=== PATIENT | female | born 1975 | race Caucasian/White ===

== ENCOUNTER 2017-10-27 19:59 | Emergency (ER) | payer OTHER, SELFPAY ==
[2017-10-27 19:59] VITALS: BP 147/117; PULSE 104; RESP 18; TEMP 36.8; O2SAT 98; BMI 29.5
--- NOTE | 2017-10-27 20:50 | CT_ITS ---
STUDY: CT ABDOMEN AND PELVIS WITHOUT CONTRAST REASON FOR EXAM: Female, 41 years old. Kidney stones. RADIATION DOSAGE (If Supplied By Facility): CTDIvol = ( 11.89 ) mGy, DLP = ( 594.17 ) mGycm TECHNIQUE: Transaxial images were obtained from the dome of the diaphragm to the symphysis pubis without oral contrast, and without intravenous contrast. Sagittal and coronal images were reconstructed. Individualized dose optimization techniques were used for this CT. COMPARISON: 06/06/2015. FINDINGS: The visualized lung bases are unremarkable. The visualized portions of the heart are within normal limits. Normal liver. Normal gallbladder and extrahepatic biliary system. Normal spleen. Normal pancreas. Normal bilateral adrenal glands. Both kidneys have very numerous renal stones in all segments. On the right the largest is approximately 6 mm. On the left the largest is approximately 7 mm. Left kidney shows diffuse edema, perinephric stranding, and moderate hydronephrosis. There is moderate to marked left hydroureter down to a 5 mm probable distal left ureteral calculus on axial image 149. Evaluation of the GI tract is limited by absence of oral contrast. Cannot exclude stomach wall thickening. No dilated loops of bowel or evidence for obstruction. Cannot exclude segmental thickening of the padgett of the small or large bowel. Cannot exclude enteritis or colitis. Moderate diffuse fecal retention. Diverticulosis without definite diverticulitis. Appendix within normal limits. Normal abdominal aorta. Normal inferior vena cava. Normal retroperitoneum. Normal urinary bladder. Normal visualized uterus. There is a small umbilical hernia containing fat. Normal osseous structures. CT/Abdomen/Pelvis without Cont IMPRESSION: Obstruction of the left kidney, collecting system and ureter from a probable 5 mm distal left ureteral calculus. Additional very numerous bilateral renal stones in all segments. Electronically Signed: Bill Sousa MD at 22:39 EDT , Service support ,
[2017-10-27] MEDS: Ketorolac 30 MG/ML Syringe IV (21:07)
[2017-10-27] MEDS: 0.9% Normal Saline 1,000 ML 250 ML IV (21:07)
[2017-10-27] MEDS: Ondansetron 4 MG/2 ML Vial IV (21:08)
[2017-10-27] MEDS: HYDROmorphone 1 MG/ML Syringe IV (21:08)
[2017-10-27 21:16] LABS: Bacteria 0 SEEN /hpf (None Seen); Mucous, Urine 0 SEEN /hpf (<or=2+); Red Blood Cells-Urine 0 SEEN /hpf (0-5)
[2017-10-27 21:24] LABS: Color, Urine Yellow (Yellow); Glucose, Dipstick Normal (Normal); Ketone-Dipstick Negative (Negative); Leukocyte Esterase-Dipstick 25 /ul (Negative); Nitrite-Dipstick Negative (Negative); Occult Blood-Urine 10 /ul (Negative); Protein-Dipstick 15 mg/dl (Negative); Urine Bilirubin Dipstick Negative (Negative); Urine Clarity Clear (Clear); Urine Urobilinogen Normal (Normal)
[2017-10-27 21:30] LABS: Squamous Epithelial Cells - UA 0-5 SEEN /hpf (5-10); White Blood Cells 0-5 SEEN /hpf (0-5)
[2017-10-27 22:05] LABS: Internal QC Validated? YES +Cl - CLEAR BKGD; Pregnancy, Urine Negative Negative
[2017-10-27 22:36] VITALS: BP 134/82; PULSE 99; RESP 18; O2SAT 100
--- NOTE | 2017-10-27 23:00 | ED.VISSUMM ---
- ER Visit Summary Date of Service: 10/27/17 Chief Complaint: Left flank pain History of Present Illness: The patient is a [address] Renner and Dr. Abreu. She reports she has left flank pain that began October 25 and is much worse today. It is a sharp, stabbing pain is 10 out of 10 at worst 9-10 currently. Is worsened by nothing relieved by nothing. She has had nausea without vomiting. No dysuria or frequency. She reports this is similar to when she has had kidney stones in the past. Physical Examination: Vitals: Stable. Afebrile. General: Well-nourished and well-developed. Head: Normocephalic atraumatic. Neck: Supple, no lymphadenopathy. No JVD. Nontender. Cardiovascular: Regular rate and rhythm. No murmurs. Respiratory: No respiratory distress. Clear to auscultation bilaterally. Abdominal: Soft, nontender, nondistended, normal bowel sounds. No guarding, rebound, or peritoneal signs. Back: Nontender. Extremities: Nontender, no edema. Skin: Normal color, no rash. Neurologic: Alert and oriented ?3. Cranial nerves II through XII are intact. Normal strength and sensation. Psych: Normal affect. Test Results: Urinalysis shows no evidence of infection. test negative. CT flank shows a 5 mm distal left ureteral calculus with moderate hydronephrosis/hydroureter. Emergency Department Course and Treatment: Patient was treated with Dilaudid, Toradol, and Zofran IV. She is resting comfortably. Treatment Plan: Patient will be discharged with naproxen, Percocet, Flomax, and Zofran. Instructed to strain her urine and follow Dr. Abreu if she does not pass the stone within the next week. Return to the emergency department for any worsening symptoms. Disposition: To home in improved and stable condition. Impression: 1. Left ureterolithiasis. This note was generated with [employer] dictation software. It may contain incorrect words, spelling, and punctuation that were not noted in review of the chart prior to signing ED Disposition - Plan for ED Patient: Chief Complaint: Flank Pain Instructions: ED Stone Renal W Colic Prescriptions: Oxycodone HCl/Acetaminophen [Percocet 5/325] 1 tablet PO Q6H PRN PRN 5 Days #20 tablet PRN Reason: Pain Ondansetron [Zofran Odt] 4 mg PO Q8H PRN PRN #10 tablet PRN Reason: Nausea Tamsulosin HCl [Flomax] 0.4 mg PO DAILY #7 capsule Naproxen [Naprosyn] 500 mg PO BID #14 tablet Referrals: Mark Abreu MD [STAFF PHYSICIAN] - 1 Week if not improving
[2017-10-27] MEDS: Ondansetron ODT 4 MG Tablet PO (23:17)
[2017-10-27] MEDS: oxyCODONE 5 MG Tablet PO (23:18)
[2017-10-27 23:24] VITALS: BP 121/78; PULSE 84; RESP 14; O2SAT 100
--- NOTE | 2017-10-27 23:25 | ED.RN ---
THIS NURSE REVIEWED D/C INSTRUCTIONS WITH PT. PT VERBALIZED UNDERSTANDING OF INSTRUCTIONS. IV D/C. IV CATHETER INTACT. PT TOLERATED WELL. PT DENIES FURTHER NEEDS OR QUESTIONS AT THIS TIME. PT AMBULATES FROM ROOM ON OWN WITHOUT ASSISTANCE FROM STAFF
== END 2017-10-27 23:26 | disposition short-term general hospital (02) ==
LOC: ED 20:55
PROVIDERS: Emergency Provider Emergency Medicine; Family Provider Internal Medicine; PCP Internal Medicine
DX: N13.2 Hydronephrosis with renal and ureteral calculous obstruction (principal); Z87.442 Personal history of urinary calculi
CPT/HCPCS: 74176; 81001; 81025; 99283; J7030; A4216; J2405

== ENCOUNTER 2018-03-01 21:47 | Emergency (ER) | payer OTHER, SELFPAY ==
[2018-03-01 21:48] VITALS: BP 169/106; PULSE 89; RESP 16; TEMP 36.2; O2SAT 98; BMI 29.8
--- NOTE | 2018-03-01 22:33 | CT_ITS ---
STUDY: CT ABDOMEN AND PELVIS WITHOUT CONTRAST REASON FOR EXAM: Female, 42 years old. Left flank pain. History of ureteral stents in the past. RADIATION DOSAGE (If Supplied By Facility): CTDIvol = ( 11.12 ) mGy, DLP = ( 564.06 ) mGycm TECHNIQUE: Transaxial images were obtained from the dome of the diaphragm to the symphysis pubis without oral contrast, and without intravenous contrast. Sagittal and coronal images were reconstructed. Individualized dose optimization techniques were used for this CT. COMPARISON: CT of the abdomen and pelvis, October 27, 2017. FINDINGS: The visualized lung bases are unremarkable. The visualized portions of the heart are within normal limits. Normal liver. Normal gallbladder and extrahepatic biliary system. Normal spleen. Normal pancreas. Normal bilateral adrenal glands. The right kidney is of normal size and cortical thickness. There is a small cyst in the lower pole. There are multiple renal calculi. The largest measures 4 mm. There is no hydronephrosis. Normal right ureter. The left kidney is of normal size and cortical thickness. There are multiple renal calculi. The largest measures 8 mm in greatest dimension. There is hydronephrosis and ureterectasis to the pelvic sidewall where there is nonobstructing 5 mm calculus (image 154, series 2). Normal visualized stomach. Normal small intestine. Normal colon. The appendix is visualized and appears normal. Normal abdominal aorta. Normal inferior vena cava. Normal retroperitoneum. Normal urinary bladder. Uterus is anteverted and grossly unremarkable. Normal ovaries. No pelvic lymphadenopathy. No free air or free fluid is seen within the abdominal cavity. There is a small umbilical hernia of omental fat. Abdominal wall is otherwise intact. Normal osseous structures. CT/Abdomen/Pelvis without Cont IMPRESSION: 1. Distal left ureteral calculus with moderate obstructive uropathy. This appears unchanged from prior exam. 2. Multiple bilateral nonobstructing renal calculi. 3. No other major interval change. Electronically Signed: Gold Lowery DO at 23:19 EST Tel [phone], Service support ,
--- NOTE | 2018-03-01 22:33 | ED.VISSUMM ---
- ER Visit Summary Date of Service: 03/01/18 Chief Complaint: Flank pain History of Present Illness: The patient is a 42 F with a history of kidney stone presents with flank pain similar to prior kidney stones that started earlier this morning. No fever or chills she has no abdominal pain. She has slight nausea but this was after she took a Percocet. No fever or chills dysuria or hematuria. Physical Examination: Currently she appears in mild distress Moist mucous membranes, no obvious facial deformity No C-spine tenderness supple neck. Regular rate and rhythm without any obvious murmurs Clear lungs bilaterally speaking in full sentences without any obvious respiratory distress Abdomen soft and nontender no guarding or rebound. She does have left-sided CVA tenderness. Moves all extremities without any difficulty or pain. Skin does not show any obvious rashes or lesions, no trauma. Alert oriented ?3 with no gross focal deficit Emergency Department Course and Treatment: Patient received 2 doses of opiate analgesics her pain is now controlled. She also received Toradol. She has a 5 mm distal ureteral stone. I told her that there is a decent chance that she will pass it on her own I referred her back to Dr. Soto. She will be discharged in stable condition Impression: Kidney stone This note was generated with [employer] dictation software. It may contain incorrect words, spelling, and punctuation that were not noted in review of the chart prior to signing ED Disposition - Plan for ED Patient: Disposition: Home or Assisted Living Chief Complaint: Flank Pain Instructions: ED Stone Renal W Colic Prescriptions: Oxycodone HCl/Acetaminophen [Percocet 5/325] 1 tab PO Q6H PRN PRN 3 Days #12 tab PRN Reason: Pain Ondansetron [Zofran Odt] 4 mg PO Q8H PRN PRN #10 tab PRN Reason: Nausea Tamsulosin HCl [Flomax] 0.4 mg PO DAILY #5 cap Referrals: Mark Abreu MD [STAFF PHYSICIAN] - 3-5 Days
[2018-03-01 22:39] LABS: Bacteria 0 SEEN /hpf (None Seen); Mucous, Urine 0 SEEN /hpf (<or=2+); Red Blood Cells-Urine 0 SEEN /hpf (0-5)
[2018-03-01 22:40] LABS: Glucose, Dipstick Normal (Normal); Ketone-Dipstick Negative (Negative); Leukocyte Esterase-Dipstick Negative /ul (Negative); Nitrite-Dipstick Negative (Negative); Occult Blood-Urine Negative /ul (Negative); Protein-Dipstick Negative (Negative); Specific Gravity, Urine 1.015 (1.002-1.030); Urine Bilirubin Dipstick Negative (Negative); Urine Urobilinogen Normal (Normal)
[2018-03-01 22:46] LABS: Color, Urine Yellow (Yellow); Urine Clarity Clear (Clear)
[2018-03-01 22:50] LABS: Squamous Epithelial Cells - UA 0-5 SEEN /hpf (5-10); White Blood Cells 0-5 SEEN /hpf (0-5)
[2018-03-01 22:54] LABS: Absolute Lymphocyte Count 1.53 X10^3/ul (0.83-4.51); Absolute Neutrophil Count 4.8 X10^3/uL (2.0-7.7); Basophil# 0.01 X10^3/uL; Basophil% 0.1 % (0-1); Eosinophil# 0.14 X10^3/uL; Hematocrit 37.2 % (37-47); Hemoglobin 12.4 g/dl (12.0-15.0); Lymphocyte # 1.53 X10^3/ul (4.0); Lymphocyte % 21.7 % (19-41); Mean Corp Hgb Conc 33.3 g/gl (32-36); Mean Corpuscular Hgb 28.1 pg (27.0-32.0); Mean Corpuscular Volume 84.2 fL (81-99); Mean Platelet Vol. 8.7 fl (6.2-12.0); Monocyte# 0.53 X10^3/uL; Monocyte% 7.5 % (0-10); Neutrophil # 4.84 X10^3/uL (2.7-7.7); Neutrophil % 68.6 % (47-70); Platelet Count 294 K/mm3 (150-450); RBC Distribution Width SD 39.6 fl (35.1-43.9); Red Blood Count 4.42 M/mm3 (4.2-5.4); White Blood Count 7.1 K/mm3 (4.4-11.0)
[2018-03-01 23:04] LABS: POSITIVE COUNT NO; POSITIVE DIFFERENTIAL NO; POSITIVE MORPHOLOGY NO
[2018-03-01 23:15] LABS: Anion Gap 7 (5-15); BUN 17 mg/dL (7-18); BUN/Creat Ratio 17.5 RATIO (10-20); Calcium,Total 8.6 mg/dL (8.5-10.1); Chloride 106 mmol/L (98-107); Creatinine, Serum 0.97 mg/dL (0.55-1.02); EST Glomerular Filtration Rate 66 mL/min (>60); Est Glom Filt Rate - Afr Amer 80 mL/min (>60); Estimated Creatinine Clearance 69.29 ml/min; Glucose 100 mg/dL (74-106); Potassium 3.6 mmol/L (3.5-5.1); Sodium Level 138 mmol/L (136-145)
[2018-03-01] MEDS: HYDROmorphone 1 MG/ML Syringe IV (23:15)
[2018-03-01] MEDS: Ondansetron 4 MG/2 ML Vial IV (23:15)
[2018-03-01] MEDS: Ketorolac 15 MG/ML Vial IV (23:16)
[2018-03-02] MEDS: HYDROmorphone 1 MG/ML Syringe IV (00:41)
[2018-03-02] MEDS: DiphenhydrAMINE 50 MG/ML Syringe 25 MG IV (01:30)
[2018-03-02] MEDS: Metoclopramide 10 MG/2 ML Vial IV (01:30)
[2018-03-02 01:33] VITALS: BP 152/99; PULSE 91; RESP 16; O2SAT 92
[2018-03-02 01:38] VITALS: BP 152/99; PULSE 91; RESP 16; O2SAT 92
== END 2018-03-02 01:39 | disposition home or self-care (01) ==
PROVIDERS: Emergency Provider Emergency Medicine; Family Provider Internal Medicine; PCP Internal Medicine
DX: N20.0 Calculus of kidney (principal); Z87.442 Personal history of urinary calculi
CPT/HCPCS: 74176; 80048; 81001; 85025; 96374; 96375; 96376; 99282; A4216; J2405

== ENCOUNTER 2018-04-06 12:15 | Day surgery (SDC) | payer OTHER, SELFPAY ==
[2018-04-06 12:41] VITALS: BP 153/99; PULSE 101; RESP 18; TEMP 37.4; O2SAT 97; BMI 29.2
[2018-04-06 12:42] LABS: Internal QC Validated? YES +Cl - CLEAR BKGD; Pregnancy, Urine Negative Negative
[2018-04-06] MEDS: Cefazolin 2 GM in 0.9% Normal Saline 100 ML IV (13:40)
--- NOTE | 2018-04-06 14:06 | DCINST_ITS ---
Discharge Diet: Light diet - advance as tolerated Discharge Activity: Return to Normal Activity Suture Line Care: Avoid Pulling/Pushing, Avoid Pinching/Bending Allergies/Adverse Reactions: Allergies No Known Allergies Allergy (Verified 04/05/18 16:47) Medications to take at Discharge NK 04/05/18 Primary Care Physician: Rena Renner DO [Primary Care Provider] - Test Results: Test results from this visit will be discussed in further detail at your follow- up appointment, if applicable. Please Follow Up With: Mark Abreu MD When: in 4 weeks, please call to make an appointment.
--- NOTE | 2018-04-06 14:08 | PCM.OPRPT ---
Report of Operation Date of Procedure: 04/06/18 Pre-Operative Diagnosis: Left ureteral calculi Post-Operative Diagnosis: Same Surgery/Procedure Performed:: Cystoscopy, left retrograde pyelogram, left ureteroscopy, balloon dilation of left ureter. Description of Surgical Findings:: 42-year-old female presented to the office she had a CAT scan done this past summer that showed a stone in the distal left ureter she had a CAT scan done about a month ago that showed the same stone in the distal left ureter she not been able to pass the stone still having patient pain off and on. Therefore recommended we proceed with ureteroscopy and laser lithotripsy and possible stent placement. 42-year-old female taken back to the operating of the smooth induction of anesthesia she was placed supine on the table, then a dorsolithotomy position, went into the bladder with a 21 Polish rigid cystourethroscope the entire length the urethra is normal the bladder is normal, she then prepped and draped in sterile fashion for this procedure, I then cannulated the left ureteral orifice advanced a wire up into the kidney, balloon dilated the distal left ureter, performed a retrograde pyelogram, perform ureteroscopy all the way up to the kidney inspected the upper pole midpole lower pole there is no stone fragments along the course of the ureter no stone fragments up in the kidney removed the flexible ureteroscope drain the bladder the patient's anesthetic was being reversed did not place a stent. Type of Anesthesia:: General - Admit VTE Documentation VTE Present on Admission: No VTE Mechan Device Prophylaxis: SCD's
[2018-04-06 14:15] VITALS: BP 140/93; BP 153/99; PULSE 112; RESP 16; TEMP 36.8; O2SAT 94
[2018-04-06 14:30] VITALS: BP 144/96; BP 153/99; PULSE 101; RESP 16; O2SAT 98
[2018-04-06] MEDS: Ketorolac 15 MG/ML Vial IV (14:31)
[2018-04-06 14:45] VITALS: BP 139/91; BP 153/99; PULSE 102; RESP 16; TEMP 36.4; O2SAT 96
[2018-04-06 15:58] VITALS: BP 125/78; BP 153/99; PULSE 78; RESP 18; TEMP 36.8; O2SAT 99
--- OUTSIDE RECORDS SUMMARY | 2018-05-23 06:52 | XMS RPT_ITS ---
:1975 Author Organization [place] Care Team Providers Name Role Phone ANNE FONSECA Attending Unavailable KAREEN FRIAS (PT) Attending Unavailable ANNE FONSECA Referring Unavailable MJ, RENA BEE Referring Unavailable TESTANNE WOODS Attending Unavailable TESTANNE WOODS Referring Unavailable KAREEN FRIAS (PT) Attending Unavailable MJ, RENA CRISTAL Referring Unavailable [place] (GOLD MARKER) Referring Unavailable AMALFITANO, COLLIN L Attending Unavailable AMALFITANO, COLLIN L Referring Unavailable EDDIE, HUY L Attending Unavailable AMALFITANO, COLLIN L Referring Unavailable ILYA FERRERA Attending Unavailable EDDIE, HUY L Referring Unavailable EDDIE, HUY L Attending Unavailable EDDIE, HUY L Referring Unavailable ABBY PHELPS Attending Unavailable MATTIE, KARMON Referring Unavailable Mj DO, Rena Attending Unavailable Mj DO, Rena Referring Unavailable Mj DO, Rena Consulting Unavailable Brayd, Kuldeep Attending Unavailable Brady, Kuldeep Referring Unavailable Mj, Rena Primary Care Unavailable Ami, Joseph Attending Unavailable Mj, Rena Referring Unavailable Mj, Rena Primary Care Unavailable Mj, Rena Primary Care Unavailable Tiffany, Yasmany Attending Unavailable Mj, Rena Primary Care Unavailable Kartik Hays Attending Unavailable PROBLEMS PROBLEMS DATE TYPE CONDITION / CODE ATTENDING STATUS SOURCE Active Primary NA Active [place] 5 hyperparathyroidism / Clinic Main E21.0(ICD-10) [place] Repository Active Palpitations / NA Active [place] 8 R00.2(ICD-10) Clinic Main [place] Repository Active Paroxysmal atrial NA [facility] 8 fibrillation / Clinic Main I48.0(ICD-10) [place] Repository Active Other specified NA [facility] 8 postprocedural states / Clinic Main Z98.890(ICD-10) [place] Repository Active Encounter for screening NA Active [place] 8 mammogram for malignant Clinic Main neoplasm of breast / [place] Z12.31(ICD-10) Repository Unknown R10.9 - Unspecified Kartik Hays Active [place] 8 abdominal pain / Community R10.9(ICD-10) Hospital Repository Unknown N20.0 - Calculus of Tiffany, Active [place] 8 kidney / N20.0(ICD-10) [facility] Repository Unknown I48.0 - Paroxysmal Ami, [place] Active [place] 8 atrial fibrillation / Community I48.0(ICD-10) Hospital Repository Active Unknown / UNK(Unknown) NA Active [place] 8 [facility] Repository PROCEDURES PROCEDURES No Procedure Records FoundRESULTS RESULTS HPV W/GENOTYPE THINP Collected: 04/23/2018 Status: F Source: [place] 9:20 AM [facility] REPOSITORY TYPE CODE TESTS RESULT OUT OF RANGE REFERENCE UNITS LAB HPVT16 HPV HighRisk Negative for Type 16 HPV DNA high risk type 16 by PCR. LAB HPVT18 HPV HighRisk Negative for Type 18 HPV DNA high risk type 18 by PCR. LAB HPVHRO Abnormal HPV HighRisk Positive for Alert Other one or more of the following HPV DNA high risk types: 31,33,35,39,45 ,51,52,56,58,5 9,66,68 by PCR Result Comment: This test was developed and its performance characteristics determined by [facility] Pathology and Laboratory Medicine [place] ([facility] It has not been cleared or approved by the FDA. -[facility] is regulated under CLIA as qualified to perform high-complexity testing. This test is used for clinical purposes. It should not be regarded as inv estigational or for research. Performed By: #### HPVHRT #### [facility] [address] [place], [place] [address] CNOV Observed: 04/23/2018 Status: COMPLETED Source: [place] 8:50 AM [facility] REPOSITORY Office Visit (WOOB) KARMA ROJO ([id number]) 1975 F Date Time Provider Department 04/23/18 8:50 AM ABBY PHELPS During your visit today, we recorded the following information about you: Blood pressure Weight Last Period 138/86 83.2 kg 04/02/18 Abby Phelps MD 04/23/2018 9:29 AM Signed Karma Rojo presents today for IUD insertion for menstrual dysfunction. No LMP recorded. GC/chlamydia: Not done: no risk factors and/or patient declines screening test: negative Side effects including irregular bleeding were discussed with the patient. She understands that it should be removed in 5 years or sooner if she desires a . IUD source: office provided LOT # [id number] EXP: 08/21/20 UNIVERSAL PROTOCOL / SAFETY CHECKLIST Procedure to be performed: Mirena Insertion Sign in Communication: Completed Time Out: Team Confirms the Correct Patient, Correct Procedure, Correct Site and Site Marking, Correct Position (if applicable), Prep and Dry Time (if applicable). Time: 9:15 Affirmation of Time Out: YES Sign Out Discussion: Completed HPV specimen collected. The uterus sounded to 9 cm and the uterus is Anteverted.. After prepping the cervix with betadine and using sterile technique, the Mirena IUD was inserted without difficulty and the string was cut to 3-4cm from the external os of the cervix. Patient tolerated procedure well. PLAN: Send HPV. Patient was advised to observe for signs and symptoms of infection including but not limited to fever, malodorous vaginal discharge and/or pain. She was told to check the string monthly for accurate placement. Bleeding expectations were reviewed. Follow up in one month. Abby Phelps MD [facility] 04/23/2018 8:44 AM Signed POST IUD INSTRUCTIONS You may have irregular bleeding during the first 3 months of use. You may have mild-severe cramping for the next 48 hours. You may use over the counter medication (Motrin, Tylenol) as needed. Your IUD must be removed or replaced in 3 years if you have a Christelle, 5 years if you have a Mirena or Kyleena and 10 years if you have a Paragard. Call my office for signs/symptoms of infection such as severe cramping, fever, or unusual bleeding. Check for string placement as instructed by your doctor. If you have any additional questions, please contact the office. Referring Provider: ABBY PHELPS [[id number]] Allergies As of Date: 04/23/2018 (No Known Allergies) Date Reviewed: 04/23/2018 Reviewed by: Abby Phelps - Fully Assessed Reason for Visit: Insertion Of IUD [291] Primary Visit Diagnosis:Encounter for IUD insertion [Z30.430] Other Visit Diagnosis:Unsatisfactory cytologic smear of cervix [R87.615] Order(s):HCG QUAL UR B/O [6720817] Order #: [id number] [] levonorgestrel 20 mcg/24 hr (5 years) 1 Each intrauterine device (MIRENA)Disp: Rfl: HPV W/GENOTYPE THIN PREP [SQHPVHRT] Order #: [id number] Prescriptions as of 04/23/2018 Sig: MEDICATION, NON-DATABASE 5mg of anixiety/depression me* IBUPROFEN 600 MG TABLET NAPROXEN 500 MG TABLET TWICE A DAY PERFLUTREN LIPID MICROSPHERES* Inject 1.3 mL intravenously a* Patient not taking: Reported on 04/23/2018 TAMSULOSIN 0.4 MG CAPSULE Take 0.4 mg by mouth once gabe* Problem List As Of Date 04/23/2018 Noted Resolved Chest pain of pericarditis [I31.9] INVALID FOR* More... Primary hyperparathyroidism (HCC) [E21.0] INVALID FOR* Atrial fibrillation (HCC) [I48.91] INVALID FOR* Nontoxic multinodular goiter [E04.2] INVALID FOR* Plantar fasciitis, left [M72.2] INVALID FOR* Other instructions from your clinician: POST IUD INSTRUCTIONS You may have irregular bleeding during the first 3 months of use. You may have mild-severe cramping for the next 48 hours. You may use over the counter medication (Motrin, Tylenol) as needed. Your IUD must be removed or replaced in 3 years if you have a Christelle, 5 years if you have a Mirena or Kyleena and 10 years if you have a Paragard. Call my office for signs/symptoms of infection such as severe cramping, fever, or unusual bleeding. Check for string placement as instructed by your doctor. If you have any additional questions, please contact the office. Prescriptions ordered this encounter Disp Refills Start End LEVONORGESTREL 20 MCG/24 HR (5 YEARS* 04/23/2018 04/23/2018 Route: INTRAUTERINE Medications Discontinued During This Encounter norethindrone (AYGESTIN) 5 mg tablet 25 t* 1 04/18/2018 04/23/2018 Route: ORAL Sig: Take 1 tablet by mouth as directed. bid x 3 days then daily until next appointment Patient not taking: Reported on 04/23/2018 Disc: Reason for discontinue is not on file. Disposition: Return in about 5 weeks (around 05/28/2018) for Follow Up In 4-6 Weeks. Follow-up and Disposition History Recorded Encounter Status:Closed by ABBY PHELPS MD on 04/23/18 PROGRESS Observed: 04/23/2018 Status: COMPLETED Source: [place] 8:44 AM [facility] REPOSITORY HNO ID: [id number] Author: Abby Phelps Service: (none) Author Type: Physician Type: Progress Notes Filed: 04/23/2018 9:29 AM Note Text: Karma Rojo presents today for IUD insertion for menstrual dysfunction. No LMP recorded. GC/chlamydia: Not done: no risk factors and/or patient declines screening test: negative Side effects including irregular bleeding were discussed with the patient. She understands that it should be removed in 5 years or sooner if she desires a . IUD source: office provided LOT # [id number] EXP: 08/21/20 UNIVERSAL PROTOCOL / SAFETY CHECKLIST Procedure to be performed: Mirena Insertion Sign in Communication: Completed Time Out: Team Confirms the Correct Patient, Correct Procedure, Correct Site and Site Marking, Correct Position (if applicable), Prep and Dry Time (if applicable). Time: 9:15 Affirmation of Time Out: YES Sign Out Discussion: Completed HPV specimen collected. The uterus sounded to 9 cm and the uterus is Anteverted.. After prepping the cervix with betadine and using sterile technique, the Mirena IUD was inserted without difficulty and the string was cut to 3-4cm from the external os of the cervix. Patient tolerated procedure well. PLAN: Send HPV. Patient was advised to observe for signs and symptoms of infection including but not limited to fever, malodorous vaginal discharge and/or pain. She was told to check the string monthly for accurate placement. Bleeding expectations were reviewed. Follow up in one month. Abby Phelps MD SURGICAL PATHOLOGY Observed: 04/18/2018 Status: F Source: [place] 2:43 PM [facility] REPOSITORY Specimen originated from [facility] Specimen #: [id number] Submitting Physician: HUY MORGAN M.D. ([id number]) FINAL DIAGNOSIS Endometrium, biopsy - Endometrium with secretory features and stromal breakdown, consistent with menstrual endometrium. TLP 04/20/2018 Kiana Rousseau M.D. (Electronic Signature) SPECIMEN SUBMITTED A: ENDOMETRIAL, BIOPSY CLINICAL DATA AUB GROSS DESCRIPTION A. Received in formalin are multiple zazueta-red, gelatinous segments of tissue aggregating to 2.4 x 1.7 x 0.4 cm. Totally submitted in one cassette. Gross examination performed at [facility], [address] [place] [address] 04/19/2018 10:16:09 PM Date of Report: 04/20/2018 Date of Procedure: 04/18/2018 Date of Receipt: 04/19/2018 Submitted by: HUY MORGAN M.D. ([id number]) Location: [facility] Diagnostic interpretation performed at [facility], [address] [place] [address]. CNOV Observed: 04/18/2018 Status: COMPLETED Source: [place] 10:20 AM [facility] REPOSITORY Office Visit (WOOB) KARMA ROJO ([id number]) 1975 F Date Time Provider Department 04/18/18 10:20 AM HUY MORGAN During your visit today, we recorded the following information about you: Blood pressure Weight 132/70 82.6 kg Huy Morgan MD 04/18/2018 10:23 AM Signed Karma Rojo presents for hysteroscopy. Indication: Menorrhagia. Age: [age] year old LMP: Patient's last menstrual period was 03/19/2018 (exact date). Contraception: vasectomy test: negative VS: LMP 03/19/2018 UNIVERSAL PROTOCOL / SAFETY CHECKLIST Procedure to be performed: Endosee w/ EMB Sign in Communication: Completed Time Out: Team Confirms the Correct Patient, Correct Procedure, Correct Site and Site Marking, Correct Position (if applicable), Prep and Dry Time (if applicable). Time: 1007 Affirmation of Time Out: YES Sign Out Discussion: Completed Huy Morgan M.D. OBJECTIVE: Cervix cleaned with betadine. Under sterile conditions, using 70 mL normal saline as distention, ENDOSEE hysteroscopy performed without incident. No endocervical lesions seen. Endometrial lining is normal. No intrauterine lesions. Tubal ostia visualized and normal. Endometrial biopsy performed. PROCEDURE SUMMARY: Patient tolerated procedure well. ASSESMENT: Menorrhagia with no lesions on hysteroscopy. PLAN: Mirena. Aygestin to stop bleeding in interim Huy Morgan MD [facility] 04/18/2018 12:09 PM Signed YOUR RECOVERY After your biopsy you may have: - Vaginal bleeding (less than a normal menstrual period) - Mild cramping Do NOT put anything in the vagina for 1 week after your endometrial biopsy. This includes sex, tampons, and douches. If you have any discomfort, you may take an over the counter pain medication (motrin, advil, ibuprofen, tylenol, etc). If this does not relieve your discomfort, contact your doctor's office for a prescription strength pain medication. It is okay to wear a sanitary pad until the discharge and spotting stops. RISKS Although problems seldom occur with endometrial biopsies, there can be some complications. You may feel faint during and shortly after the procedure as well as have some bleeding after the procedure. There is also a risk of infection after the procedure. These complications are rare and can be easily treated. You should contact you doctor is you have any of the following: - Heavy bleeding (more than your normal period) - Bleeding with clots - Severe abdominal pain - Fever (more than 100.4F) - Foul smelling vaginal discharge RESULTS We will have the results of your biopsy in 1-2 weeks. If you do not hear the results of your biopsy after 2 weeks, please contact your physicians office for the results. If you have any additional questions, please contact your doctor's office. Katalina Millan Ma 04/18/2018 12:10 PM Signed Addended by: KATALINA MILLAN MA on: 04/18/2018 12:10 PM Modules accepted: Orders, Cortez Morgan MD 04/18/2018 2:43 PM Signed Addended by: HUY MORGAN MD on: 04/18/2018 02:43 PM Modules accepted: Orders Referring Provider: HUY MORGAN [[id number]] Allergies As of Date: 04/18/2018 (No Known Allergies) Date Reviewed: 04/18/2018 Reviewed by: Katalina Millan Ma - Fully Assessed Reason for Visit: Endometrial Biopsy [7501] Primary Visit Diagnosis:Abnormal uterine bleeding (AUB) [N93.9] Other Visit Diagnoses:Encounter for repeat Pap smear due to previous insuff cervical cells [R87.615] Encounter for screening for malignant neoplasm of cervix [Z12.4] Special screening examination for human papillomavirus (HPV) [Z11.51] Menorrhagia with regular cycle [N92.0] Order(s):HCG QUAL UR B/O [2790286] Order #: [id number] IUD INSERTION PROCEDURE (W NOTE) [PRO92] Order #: [id number] norethindrone (AYGESTIN) 5 mg tabletTake 1 tablet by mouth as directed. bid x 3 days then daily until next appointmentDisp: 25 tabletRfl: 1 SURGICAL PATHOLOGY [1573043] Order #: [id number] Prescriptions as of 04/18/2018 Sig: IBUPROFEN 600 MG TABLET PERFLUTREN LIPID MICROSPHERES* Inject 1.3 mL intravenously a* TAMSULOSIN 0.4 MG CAPSULE Take 0.4 mg by mouth once gabe* NAPROXEN 500 MG TABLET TWICE A DAY NORETHINDRONE ACETATE 5 MG TA* Take 1 tablet by mouth as dir* Problem List As Of Date 04/18/2018 Noted Resolved Chest pain of pericarditis [I31.9] INVALID FOR* More... Primary hyperparathyroidism (HCC) [E21.0] INVALID FOR* Atrial fibrillation (HCC) [I48.91] INVALID FOR* Nontoxic multinodular goiter [E04.2] INVALID FOR* Plantar fasciitis, left [M72.2] INVALID FOR* Other instructions from your clinician: YOUR RECOVERY After your biopsy you may have: - Vaginal bleeding (less than a normal menstrual period) - Mild cramping Do NOT put anything in the vagina for 1 week after your endometrial biopsy. This includes sex, tampons, and douches. If you have any discomfort, you may take an over the counter pain medication (motrin, advil, ibuprofen, tylenol, etc). If this does not relieve your discomfort, contact your doctor's office for a prescription strength pain medication. It is okay to wear a sanitary pad until the discharge and spotting stops. RISKS Although problems seldom occur with endometrial biopsies, there can be some complications. You may feel faint during and shortly after the procedure as well as have some bleeding after the procedure. There is also a risk of infection after the procedure. These complications are rare and can be easily treated. You should contact you doctor is you have any of the following: - Heavy bleeding (more than your normal period) - Bleeding with clots - Severe abdominal pain - Fever (more than 100.4F) - Foul smelling vaginal discharge RESULTS We will have the results of your biopsy in 1-2 weeks. If you do not hear the results of your biopsy after 2 weeks, please contact your physicians office for the results. If you have any additional questions, please contact your doctor's office. Prescriptions ordered this encounter Disp Refills Start End NORETHINDRONE ACETATE 5 MG TABLET 25 t* 1 04/18/2018 Route: ORAL Sig: Take 1 tablet by mouth as directed. bid x 3 days then daily until next appointment Medications Discontinued During This Encounter escitalopram oxalate (LEXAPRO) 10 mg* 04/16/2018 04/18/2018 Class: Historical Med Sig: Disc: Reason for discontinue is not on file. Encounter Status:Closed by HUY MORGAN MD on 04/18/18 PROGRESS Observed: 04/18/2018 Status: COMPLETED Source: [place] 10:05 AM [facility] REPOSITORY HNO ID: [id number] Author: Ilya Ferrera Service: (none) Author Type: Physician Type: Progress Notes Filed: 04/18/2018 10:07 AM Note Text: A normal sized anteverted uterus with the measurements shown below. The endometrial echo measures 7.9 mm. The endometrial cavity appears normal Multiple intramural fibroids are noted. The myometrium appears normal. The right ovary appears normal. The left ovary appears normal. There is no free fluid in the cul de sac IMPRESSION: Multiple uterine fibroids PROGRESS Observed: 04/18/2018 Status: COMPLETED Source: [place] 9:27 AM [facility] REPOSITORY HNO ID: [id number] Author: Huy Morgan Service: (none) Author Type: Physician Type: Progress Notes Filed: 04/18/2018 10:23 AM Note Text: Karma Rojo presents for hysteroscopy. Indication: Menorrhagia. Age: [age] year old LMP: Patient's last menstrual period was 03/19/2018 (exact date). Contraception: vasectomy test: negative VS: LMP 03/19/2018 UNIVERSAL PROTOCOL / SAFETY CHECKLIST Procedure to be performed: Endosee w/ EMB Sign in Communication: Completed Time Out: Team Confirms the Correct Patient, Correct Procedure, Correct Site and Site Marking, Correct Position (if applicable), Prep and Dry Time (if applicable). Time: 1007 Affirmation of Time Out: YES Sign Out Discussion: Completed Huy Morgan M.D. OBJECTIVE: Cervix cleaned with betadine. Under sterile conditions, using 70 mL normal saline as distention, ENDOSEE hysteroscopy performed without incident. No endocervical lesions seen. Endometrial lining is normal. No intrauterine lesions. Tubal ostia visualized and normal. Endometrial biopsy performed. PROCEDURE SUMMARY: Patient tolerated procedure well. ASSESMENT: Menorrhagia with no lesions on hysteroscopy. PLAN: Mirena. Aygestin to stop bleeding in interim Huy Morgan MD OPERATIVE REPORT Observed: 04/06/2018 Status: F Source: [place] 2:10 PM [facility] [place] [place] REPOSITORY [facility] Medical Records Department [address] [place] [address] Operative Report 04/06/18 1408 MR#: [id number] Acct: [id number] Name: KARMA ROJO Rep #: [id number] : 1975 42 From: Mark Abreu MD PCP: Rena Renner DO Status: [facility] Y Location: [place] [address]-1 Report of Operation Date of Procedure: 04/06/18 Pre-Operative Diagnosis: Left ureteral calculi Post-Operative Diagnosis: Same Surgery/Procedure Performed:: Cystoscopy, left retrograde pyelogram, left ureteroscopy, balloon dilation of left ureter. Description of Surgical Findings:: 42-year-old female presented to the office she had a CAT scan done this past summer that showed a stone in the distal left ureter she had a CAT scan done about a month ago that showed the same stone in the distal left ureter she not been able to pass the stone still having patient pain off and on. Therefore recommended we proceed with ureteroscopy and laser lithotripsy and possible stent placement. 42-year-old female taken back to the operating of the smooth induction of anesthesia she was placed supine on the table, then a dorsolithotomy position, went into the bladder with a 21 [place] rigid cystourethroscope the entire length the urethra is normal the bladder is normal, she then prepped and draped in sterile fashion for this procedure, I then cannulated the left ureteral orifice advanced a wire up into the kidney, balloon dilated the distal left ureter, performed a retrograde pyelogram, perform ureteroscopy all the way up to the kidney inspected the upper pole midpole lower pole there is no stone fragments along the course of the ureter no stone fragments up in the kidney removed the flexible ureteroscope drain the bladder the patient's anesthetic was being reversed did not place a stent. Type of Anesthesia:: General - Admit VTE Documentation VTE Present on Admission: No VTE Mechan Device Prophylaxis: SCD's 04/06/18 1410 <Electronically signed by Mark Abreu MD> Date Mark Abreu MD CC: Makr Abreu MD; Rena Renner DO Signed DISCHARGE INSTRUCTION Observed: 04/06/2018 Status: F Source: [place] 2:06 PM [facility] [place] [place] REPOSITORY [facility] Medical Records Department [address] [place] [address] Instructions for Home/Discharge Instructions 04/06/18 1406 MR#: [id number] Acct: [id number] Name: KARMA ROJO Rep #: [id number] : 1975 42 From: Mark Abreu MD PCP: Rena Renner DO [place] [facility] [place] Diet: Light diet - advance as tolerated Discharge Activity: Return to Normal Activity Suture Line Care: Avoid Pulling/Pushing, Avoid Pinching/Bending Allergies/Adverse Reactions: Allergies No Known Allergies Allergy (Verified 04/05/18 16:47) Medications to take at Discharge NK 04/05/18 Primary Care Physician: Rena Renner DO [Primary Care Provider] - Test Results: Test results from this visit will be discussed in further detail at your follow-up appointment, if applicable. Please Follow Up With: Mark Abreu MD When: in 4 weeks, please call to make an appointment. 04/06/18 1406 <Electronically signed by Mark Abreu MD> Date Mark Abreu MD CC: Rena Renner DO ,URINE Collected: 04/06/2018 Status: F Source: [place] 12:30 PM [facility] [place] [place] REPOSITORY Order Comment: Reason for Laboratory Test pre-op TYPE CODE TESTS RESULT OUT OF REFERENCE UNITS RANGE LAB L400.8000 Negative Normal HCGUQUAL Negative Result Comment: Very dilute urine specimens, as indicated by a low specific gravity, may not contain payable representative levels of hCG. If is still suspected, a first morning urine specimen should be collected 48 hours later and tested. Performed By: #### [id number] #### [facility] [address] [place], [address] TSH Collected: 04/02/2018 Status: F Source: [place] 10:49 PM [facility] REPOSITORY TYPE CODE TESTS RESULT OUT OF RANGE REFERENCE UNITS LAB TSH 0.400-5.500 uU/mL TSH 1.000 Result Comment: If the patient is , TSH reference range varies by gestational period: First Trimester 0.100-2.500 uU/mL Second Trimester 0.200-3.000 uU/mL Third Trimester 0.300-3.000 uU/mL References: 1. Mack Zambrano M, Thomas EK, et al. Management of Thyroid Dysfunction during and : An Endocrine Society Clinical Practice Guideline. J Clin Endocrinol Metab, 2012:97:7446-5825. 2. [place]. Overview of thyroid disease in . UpToDate. 2016. Accessed on October 09, 2015. Performed By: #### TSH #### [facility] [address], [place] [address] HPV W/GENOTYPE Collected: 04/02/2018 Status: F Source: [place] 5:15 PM [facility] REPOSITORY TYPE CODE TESTS RESULT OUT OF REFERENCE UNITS RANGE LAB HPVT16 HPV HighRisk Grossly Type 16 bloody, unable to test for HPV DNA high risk type 16. Please submit repeat specimen. Account credited. LAB HPVT18 HPV HighRisk Grossly Type 18 bloody, unable to test for HPV DNA high risk type 18. LAB HPVHRO HPV HighRisk Grossly Other bloody, unable to test for HPV DNA high risk types: 31,33,35,39,4 5,51,52,56,58 ,59,66 and 68 Result Comment: Called to and read back by: Veronica Hutton from [facility] on 04.05.2018 at 1254 to Shaye Malone. Performed By: #### HPVHRR #### [facility] [address] [id number] CYTOLOGY Observed: 04/02/2018 Status: C Source: [place] 5:15 PM [facility] REPOSITORY ADDITIONAL PROCEDURES PRESENT Specimen originated from [facility] Specimen #: [id number] Submitting Physician: HUY MORGAN M.D. ([id number]) SPECIMEN SUBMITTED A: CERVICAL, SCREENING, FLUID FINAL DIAGNOSIS A. CERVICAL, SCREENING, FLUID Satisfactory for interpretation. Excess blood. Negative for intraepithelial lesion or malignancy. Acute inflammation. This specimen has been analyzed by the ThinPrep Imaging System, an automated imaging and review system, which assists the laboratory in evaluating cells on ThinPrep Pap tests. Following automated imaging, selected christensen from every slide are reviewed by a supervisor glycerin. HEATHER Warren(ASCP) (Electronic Signature) ADDITIONAL PROCEDURE(S) HUMAN PAPILLOMA VIRUS Date Ordered: 04/04/2018 Date Reported: 04/05/2018 Procedure Results and Interpretation Grossly bloody, unable to test for HPV DNA high risk type 16. Please submit repeat specimen. Account credited. Grossly bloody, unable to test for HPV DNA high risk type 18. Grossly bloody, unable to test for HPV DNA high risk types: 31,33,35,39,45,51,52,56,58,59,66 and 68 Called to and read back by: Procedure Results and Comments Veronica Hutton from [facility] on 04.05.2018 at 1254 to Shaye Malone. CLINICAL DATA ROUTINE EXAM, HPV Testing: Yes, automatic HPV patients over 30 Date of Last Menstrual Period: 03/19/2018 GROSS DESCRIPTION Glacial Acetic Acid added. STAINS A: CERVICAL, SCREENING, FLUID THIN PREP CAN WASHER x 2 Naomy Pfeiffer M.D., [employer] Date of Report: 04/12/2018 Date of Procedure: 04/02/2018 Date of Receipt: 04/04/2018 Submitted by: HUY MORGAN M.D. ([id number]) Location: [facility] Diagnostic interpretation performed at [facility], [address] [facility] [address]. The Pap Smear is a screening test for cervical cancer. False negative results occur with all screening tests, emphasizing the need for rescreening at recommended intervals, and clinical correlation. PROGRESS Observed: 04/02/2018 Status: COMPLETED Source: [place] 2:53 PM [facility] REPOSITORY HNO ID: [id number] Author: Huy Morgan Service: (none) Author Type: Physician Type: Progress Notes Filed: 04/02/2018 3:22 PM Note Text: Karma Rojo is a 42 year old who presents for her annual gynecologic exam without complaints. Some Postcoital bleeding. Changes protection q 2-3 hrs at heaviest. Wears double protection. Sometimes bleeds through protection at night. Menses: cycles every 28-30 days and 8-14 days of flow. Sometimes heavy, sometimes spots and stops and restarts Contraception: vasectomy HPV vaccine: No Last Pap: 2016 normal HPV: positive 2014 History of abnormal pap: Yes Last mammogram: 2018normal Sexually active: Yes Obstetric History T2 L2 SAB1 TAB0 Ectopic0 Multiple0 Live Births1 PAST MEDICAL HISTORY Diagnosis Date - PMH - PAST MEDICAL HISTORY OF 2007 right foot 4th digit fx - PMH - PAST MEDICAL HISTORY OF 08/2007 Atrial Fibrillation s/p ablation 2010 - Unspecified hemorrhoids without mention of complication - Urinary calculus, unspecified Renal stones - Variants of migraine, not elsewhere classified, without mention of intractable migraine without mention of status migrainosus PAST SURGICAL HISTORY Procedure Laterality Date - ABLATE HEART DYSRHYTHM 2010 afib - PAST SURGICAL HISTORY OF 1991 R KNEE SURGERY - PAST SURGICAL HISTORY OF 1993 WISDOM TEETH EXTRACTION - PAST SURGICAL HISTORY OF polyp removal from uterus - PAST SURGICAL HISTORY OF 01/2015 kidney stones/stents X2 - THYROID SURGERY HX 04/2015 parathyroid removed FAMILY HISTORY Problem Relation Age of Onset - Hypertension Mother - Osteoporosis Maternal Grandmother - Arthritis Maternal Grandmother - Diabetes Maternal Grandfather - Cancer Maternal Grandfather SKIN - Stroke Maternal Grandfather - Hypertension Maternal Grandfather - Cancer Paternal Grandfather LUNG - Diabetes Paternal Aunt - other (CHONG SYNDROME) Sister - Cancer Maternal Uncle - Hypertension Brother SOCIAL HISTORY Social History Substance Use Topics - Smoking status: Never Smoker - Smokeless tobacco: Never Used - Alcohol use No REVIEW OF SYSTEMS Abdomen: No abdominal pain, nausea, vomiting, diarrhea, or constipation. No bloating, early satiety, indigestion, or increased flatulence. Bladder: No dysuria, gross hematuria, urinary frequency, urinary urgency, or incontinence. Breast: No breast lumps, nipple d/c, overlying skin changes, redness or skin retraction. Allergies and current medication updated:Yes EXAM: Ht 5' 6 (1.68m) Wt 185 lb (83.9kg) LMP 03/19/2018 BMI 29.87 kg/(m2). GENERAL: pleasant, female in no apparent distress HEENT: Normocephalic, atraumatic, mucus membranes moist and no lesions NECK: Supple, full range of motion, no adenopathy and thyroid normal DERMATOLOGY: Normal, without lesions, non-icteric and non-hirsute BREAST: soft, non-tender, symmetric, no dominant mass, normal nipple-areolar complex, no lymphadenopathy and no nipple discharge CHEST: Normal inspiratory effort ABDOMEN: soft, non-tender and no masses PELVIC: external genitalia normal, normal Bartholin's glands, urethra, Tallula's glands, no vulvar lesions, no cervical lesions, good vaginal support, physiologic discharge present, normal appearing perineal body and perianal region BIMANUAL: uterus normal size, shape and consistency, no adnexal masses and non-tender RECTOVAGINAL: deferred. NEURO: alert and oriented x3,exam grossly non-focal EXTREMITIES: normal ASSESSMENT/PLAN: 1) Health maintenance: Pap done with HPV. Mammogram ordered. after discussion will continue w/ digital mammograms for now 2) Contraception: vasectomy. Contraceptive options reviewed and information provided. 3) STD screening: Declined STD check. 4) Follow up one year or sooner as needed Menorrhagia- Had TSH checked Today. Will see if we can add a CBC to the lab work drawn by cardiology. Patient is not a good combined hormonal contraceptive candidate due to hypertension. She is currently undergoing evaluation with cardiology. Recommended a pelvic ultrasound and and does see with EMB to evaluate the uterus further. Discussed with her she would be a candidate for possible endometrial ablation and Mirena and handouts given.. Huy Morgan MD CNOV Observed: 04/02/2018 Status: COMPLETED Source: [place] 2:30 PM [facility] REPOSITORY Office Visit (WOOB) KARMA ROJO ([id number]) 1975 F Date Time Provider Department 04/02/18 2:30 PM HUY MORGAN During your visit today, we recorded the following information about you: Blood pressure Weight Height Last Period 124/76 83.9 kg 1.676 m 03/19/18 Huy Morgan MD 04/02/2018 3:22 PM Signed Karma Rojo is a 42 year old who presents for her annual gynecologic exam without complaints. Some Postcoital bleeding. Changes protection q 2-3 hrs at heaviest. Wears double protection. Sometimes bleeds through protection at night. Menses: cycles every 28-30 days and 8-14 days of flow. Sometimes heavy, sometimes spots and stops and restarts Contraception: vasectomy HPV vaccine: No Last Pap: 2017 normal HPV: positive 2014 History of abnormal pap: Yes Last mammogram: 2017normal Sexually active: Yes Obstetric History T2 L2 SAB1 TAB0 Ectopic0 Multiple0 Live Births1 PAST MEDICAL HISTORY Diagnosis Date - PMH - PAST MEDICAL HISTORY OF 2007 right foot 4th digit fx - PMH - PAST MEDICAL HISTORY OF 08/2007 Atrial Fibrillation s/p ablation 2010 - Unspecified hemorrhoids without mention of complication - Urinary calculus, unspecified Renal stones - Variants of migraine, not elsewhere classified, without mention of intractable migraine without mention of status migrainosus PAST SURGICAL HISTORY Procedure Laterality Date - ABLATE HEART DYSRHYTHM 2010 afib - PAST SURGICAL HISTORY OF 1991 R KNEE SURGERY - PAST SURGICAL HISTORY OF 1993 WISDOM TEETH EXTRACTION - PAST SURGICAL HISTORY OF polyp removal from uterus - PAST SURGICAL HISTORY OF 01/2015 kidney stones/stents X2 - THYROID SURGERY HX 04/2015 parathyroid removed FAMILY HISTORY Problem Relation Age of Onset - Hypertension Mother - Osteoporosis Maternal Grandmother - Arthritis Maternal Grandmother - Diabetes Maternal Grandfather - Cancer Maternal Grandfather SKIN - Stroke Maternal Grandfather - Hypertension Maternal Grandfather - Cancer Paternal Grandfather LUNG - Diabetes Paternal Aunt - other (CHONG SYNDROME) Sister - Cancer Maternal Uncle - Hypertension Brother SOCIAL HISTORY Social History Substance Use Topics - Smoking status: Never Smoker - Smokeless tobacco: Never Used - Alcohol use No REVIEW OF SYSTEMS Abdomen: No abdominal pain, nausea, vomiting, diarrhea, or constipation. No bloating, early satiety, indigestion, or increased flatulence. Bladder: No dysuria, gross hematuria, urinary frequency, urinary urgency, or incontinence. Breast: No breast lumps, nipple d/c, overlying skin changes, redness or skin retraction. Allergies and current medication updated:Yes EXAM: Ht 5' 6 (1.68m) Wt 185 lb (83.9kg) LMP 03/19/2018 BMI 29.87 kg/(m2). GENERAL: pleasant, female in no apparent distress HEENT: Normocephalic, atraumatic, mucus membranes moist and no lesions NECK: Supple, full range of motion, no adenopathy and thyroid normal DERMATOLOGY: Normal, without lesions, non-icteric and non-hirsute BREAST: soft, non-tender, symmetric, no dominant mass, normal nipple-areolar complex, no lymphadenopathy and no nipple discharge CHEST: Normal inspiratory effort ABDOMEN: soft, non-tender and no masses PELVIC: external genitalia normal, normal Bartholin's glands, urethra, Tallula's glands, no vulvar lesions, no cervical lesions, good vaginal support, physiologic discharge present, normal appearing perineal body and perianal region BIMANUAL: uterus normal size, shape and consistency, no adnexal masses and non-tender RECTOVAGINAL: deferred. NEURO: alert and oriented x3,exam grossly non-focal EXTREMITIES: normal ASSESSMENT/PLAN: 1) Health maintenance: Pap done with HPV. Mammogram ordered. after discussion will continue w/ digital mammograms for now 2) Contraception: vasectomy. Contraceptive options reviewed and information provided. 3) STD screening: Declined STD check. 4) Follow up one year or sooner as needed Menorrhagia- Had TSH checked Today. Will see if we can add a CBC to the lab work drawn by cardiology. Patient is not a good combined hormonal contraceptive candidate due to hypertension. She is currently undergoing evaluation with cardiology. Recommended a pelvic ultrasound and and does see with EMB to evaluate the uterus further. Discussed with her she would be a candidate for possible endometrial ablation and Mirena and handouts given.. MD Katalina Helms Ma 04/02/2018 4:53 PM Signed Addended by: KATALINA MILLAN MA on: 04/02/2018 04:53 PM Modules accepted: Orders, SmartSet Huy Morgan MD 04/02/2018 5:15 PM Signed Addended by: HUY MORGAN MD on: 04/02/2018 05:15 PM Modules accepted: Orders Referring Provider: SELF [[id number]] Allergies As of Date: 04/02/2018 (No Known Allergies) Date Reviewed: 04/02/2018 Reviewed by: Huy Morgan - Fully Assessed Reason for Visit: Yearly Exam [187] Primary Visit Diagnosis:Menorrhagia with regular cycle [N92.0] Other Visit Diagnoses:Encounter for gynecological examination (general) (routine) without abnormal findings [Z01.419] Encounter for screening mammogram for breast cancer [Z12.31] Screening for malignant neoplasm of cervix [Z12.4] Papanicolaou smear of cervix with atypical squamous cells of undetermined significance (ASC-US) [R87.610] Order(s):JAMES SCREENING [[id number]] Order #: [id number] FUTURE OFFICE HYSTEROSCOPY [[id number]] Order #: [id number] CBC [SQCBC] Order #: [id number] FUTURE PAP FLUID CERVICAL SCREENING [[id number]] Order #: [id number] Prescriptions as of 04/02/2018 Sig: PERFLUTREN LIPID MICROSPHERES* Inject 1.3 mL intravenously a* NAPROXEN 500 MG TABLET TWICE A DAY TAMSULOSIN 0.4 MG CAPSULE Take 0.4 mg by mouth once gabe* Problem List As Of Date 04/02/2018 Noted Resolved Chest pain of pericarditis [I31.9] INVALID FOR* More... Primary hyperparathyroidism (HCC) [E21.0] INVALID FOR* Atrial fibrillation (HCC) [I48.91] INVALID FOR* Nontoxic multinodular goiter [E04.2] INVALID FOR* Plantar fasciitis, left [M72.2] INVALID FOR* Medications Discontinued During This Encounter metoprolol tartrate, short acting, (* 04/02/2018 Class: Historical Med Route: ORAL Sig: Take 25 mg by mouth once daily. Disc: Discontinued by Patient Cholecalciferol, Vitamin D3, 5,000 u* 04/02/2018 Class: Historical Med Route: ORAL Sig: Take 5,000 Units by mouth once daily. Disc: Discontinued by Patient CALCIUM ORAL 04/02/2018 Class: Historical Med Route: ORAL Sig: Take 1,500 mg by mouth three times daily. Disc: Discontinued by Patient busPIRone (BUSPAR) 15 mg tablet 02/08/2017 04/02/2018 Class: Historical Med Route: ORAL Sig: Take 1 tablet by mouth once daily. Disc: Discontinued by Patient Disposition: Return in 1 year (on 04/02/2019) for Annual Exam. Follow-up and Disposition History Recorded Encounter Status:Closed by HUY MORGAN MD on 04/02/18 ECG COMPLETE W Observed: 04/02/2018 Status: F Source: [place] INTERPRETATION 11:19 AM [facility] REPOSITORY NAME : KARMA ROJO PID : [id number] : 1975 Gender : Female Race : ORD : [id number] Procedure Date : Apr 02 2018 11:19:44 Edit Date : Apr 22 2018 08:59:34 Diagnosis:SINUS RHYTHM WITH PREMATURE ATRIAL COMPLEXES OTHERWISE NORMAL ECG Confirmed by COLLIN BARRY D.O. ([id number]) on 04/22/2018 8:59:29 AM Ventricular Rate : 97 BPM Atrial Rate : 97 BPM P-R Interval : 126 ms QRS Duration : 80 ms Q-T Interval : 344 ms QTC Calculation(Bezet) : 436 ms P [place] : 37 degrees R [place]wick : 63 degrees T [place] : 25 degrees Test Reason : Location : 158 : MEFM Overread By : COLLIN BARRY D.O. Edited By : COLLIN BARRY D.O. Referred By : COLLIN BARRY Acquired by : , PROGRESS Observed: 04/02/2018 Status: COMPLETED Source: [place] 11:16 AM [facility] REPOSITORY HNO ID: [id number] Author: Collin Barry Service: (none) Author Type: Physician Type: Progress Notes Filed: 04/02/2018 2:44 PM Note Text: [facility] [place] [facility] Department of Cardiovascular Medicine SECTION OF REGIONAL CARDIOLOGY Consultation requested by Rena Renner DO for an opinion regarding Karma Rojo. My final recommendations will be communicated back to the requesting physician by way of shared Medical record or letter to requesting physician via [place] mail. CC: palpitations HPI: Karma Rojo is a 42 year old female who is here today for establishment of cardiac care, palpitations, cardiac arrhythmia atrial fibrillation, abnormal echo findings and pericardial effusion. She has been having palpitations daily now and states this feels more like skipped beats rather than her prior AFib felt which was more of a racing sensation. She had most of her cardiac care at [facility] with the start of her cardiac of atrial fibrillation which began in 2007 while hospitalized for kidney stones. She had 2 additional episodes which required hospitalization where she was chemically converted and she had additional episodes which she converted spontaneously at home. She was started on Flecainide after her first atrial fibrillation episode and had her Flecainide increased. She was sent to [facility] to be evaluated for an atrial fibrillation ablation because she wanted to stop her Flecainide. She then had ablation 08/16/10 and subsequently presented with new pericardial effusion and SOB w/substernal pleuritic chest pain. Chest X-ray showed pleural effusion, low lung volumes and cardiomegaly. EKG stable. Trops peaked at 1.18, and trended downward. TTE with EF 58%, and small pericardial effusion with early tamponade physiology. Patient had pericardial drain placed on 08/20/10 with removal on 08/22/10 with 650cc drainage of serosanginous fluid in interim. Interval echo on 08/21/10 showed resolution of effusion and repeat echo the day after removal showed a small pericardial effusion next to the R atrium without tamponade physiology and patient reported marked improvement in her symptoms. It was noted that pericardial effusion was Most likely secondary to pericarditis vs perforation during (ablation) catheterization. Patient also had Coagulopathy on coumadin. The patient denies any regular aerobic exercise Patient denies SOB, chest pain, dizziness, lightheadedness, lower extremity edema, PND, orthopnea, presyncope, syncope or claudication symptoms. PAST MEDICAL HISTORY Diagnosis Date - PMH - PAST MEDICAL HISTORY OF 2007 right foot 4th digit fx - PMH - PAST MEDICAL HISTORY OF 08/2007 Atrial Fibrillation s/p ablation 2010 - Unspecified hemorrhoids without mention of complication - Urinary calculus, unspecified Renal stones - Variants of migraine, not elsewhere classified, without mention of intractable migraine without mention of status migrainosus PAST SURGICAL HISTORY Procedure Laterality Date - ABLATE HEART DYSRHYTHM 2010 afib - PAST SURGICAL HISTORY OF 1991 R KNEE SURGERY - PAST SURGICAL HISTORY OF 1993 WISDOM TEETH EXTRACTION - PAST SURGICAL HISTORY OF polyp removal from uterus - PAST SURGICAL HISTORY OF 01/2015 kidney stones/stents X2 - THYROID SURGERY HX 04/2015 parathyroid removed FAMILY HISTORY Problem Relation Age of Onset - Hypertension Mother - Osteoporosis Maternal Grandmother - Arthritis Maternal Grandmother - Diabetes Maternal Grandfather - Cancer Maternal Grandfather SKIN - Stroke Maternal Grandfather - Hypertension Maternal Grandfather - Cancer Paternal Grandfather LUNG - Diabetes Paternal Aunt - other (CHONG SYNDROME) Sister - Cancer Maternal Uncle - Hypertension Brother SOCIAL HISTORY Social History Marital status: Spouse name: Enrique Years of education: 18 Number of children: 1 Occupational History 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 CURRENT MEDICATIONS: Current Outpatient Prescriptions: busPIRone (BUSPAR) 15 mg tablet Take 1 tablet by mouth once daily. CALCIUM ORAL Take 1,500 mg by mouth three times daily. Cholecalciferol, Vitamin D3, 5,000 unit tab Take 5,000 Units by mouth once daily. metoprolol tartrate, short acting, (LOPRESSOR) 25 mg tablet Take 25 mg by mouth once daily. No current facility-administered medications for this visit. ROS: Card: See present history. Pulm: Negative for cough, hemoptysis, wheezing, COPD, dyspnea or shortness of breath Gastro: No nausea, vomiting, or diarrhea GenUr: No history of dysuria, frequency or incontinence Endo: Negative for cold or heat intolerance, polyuria or polydipsia. Neuro: no focal weakness, focal sensory loss, headache, visual changes, seizure activity, ataxia, speech/language loss. Musculoskeletal: Negative for joint or muscle pain, back pain, or swelling. Infect: no fevers, chills, rigors or night sweats. Skin: Negative for lesions, rash, and itching. Heme: Negative for prolonged bleeding, bruising easily or swollen nodes. The remainder of the review of systems is negative. PHYSICAL EXAMINATION: GENERAL: alert cooperative, pleasant oriented x 3 (self, time and place) in no acute distress Ht 167.6 cm (5' 6) BMI 29.70 kg/m? Last 3 Encounter BP Readings: Date: BP: 08/19/2017 138/84 05/25/2016 138/88 11/09/2015 110/76 Last 3 Encounter Pulse Readings: Date: Pulse: 08/19/2017 106 05/25/2016 76 11/09/2015 78 Last 3 Encounter Wt Readings: Date: Wt: 08/19/2017 83.5 kg (184 lb) 06/10/2016 82.1 kg (181 lb) 05/25/2016 83 kg (183 lb) SKIN: warm, dry, no rash. NECK: supple, no palpable masses, no JVD, carotids well felt, no bruits. CARDIAC: [place] palpable in the 5th intercostal space mid clavicular line, normal S1 and S2, no murmurs, gallops, or rubs. CHEST: Normal respiratory efforts, lungs clear to auscultation bilaterally. ABDOMEN: Soft, no tenderness, rigidity, or masses. No palpable liver or spleen. Normal bowel sounds, no bruits. NEURO: intact cranial nerves II through XII, no motor or sensory deficits in all 4 extremities. EXTREMITIES: No cyanosis, clubbing, or edema. Peripheral pulses well felt. CARDIAC (AND OTHER IMPORTANT) TESTING: The following testing (including images and tracings) were personally reviewed by myself: LABS: No results found for: CHOL, HDL, LDL, TG ASSESSMENT/PLAN: 1. Palpitations - ICD9: 785.1, ICD10: R00.2 (primary diagnosis) Possible ectopy rather than recurrent AF but will check 14 day monitor 2. Paroxysmal atrial fibrillation (HCC) - ICD9: 427.31, ICD10: I48.0 No recurrent symptoms [id number] = 1(gdr) Patient on asa 3. History of cardiac radiofrequency ablation (RFA) - ICD9: V45.89, ICD10: Z98.890 Done in 2010 at [facility] in [place] Normal PVs on post op MRI 4. Primary hyperparathyroidism (HCC) - ICD9: 252.01, ICD10: E21.0 5. Cardiac tamponade - ICD9: 423.3, ICD10: I31.4 Complication of ablation in 2010 requiring pericardiocentesis 6. Family h/o genetic cardiomyopathy She has been having some palpitations which to her feel more consistent with skipped beats rather than racing sensation that she had with her atrial fibrillation 7-8 years ago. She has not been on any antiarrhythmic treatment or anticoagulation since her ablation. She was on flecainide prior to this however it was unsuccessful in controlling atrial fibrillation. We will check a 14 day monitor to see if she's having any breakthrough atrial dysrhythmia or whether there is any symptom-rhythm correlation related to atrial or ventricular ectopy for her palpitations. Her father has a genetic or familial cardiomyopathy and has been gene tested. We will obtain an echocardiogram for her in light of her palpitations and this family history. We will also check a TSH as her level in our system in 2014 was low normal. I will follow-up with her to review these findings. Thank you for allowing me the privilege of participating in the care of your patient. Please do not hesitate to contact me if there are any questions. Collin Barry DO, FACC, FCCP, FACOI CC: Rena Renner DO ([place]) [id number] [facility] [address] [place] [address] CNOV Observed: 04/02/2018 Status: COMPLETED Source: [place] 11:00 AM [facility] REPOSITORY Office Visit (CARDMM) KARMA ROJO ([id number]) 1975 F Date Time Provider Department 04/02/18 11:00 AM COLLIN BARRY During your visit today, we recorded the following information about you: Pulse Blood pressure Weight Height 97/minute 162/104 82.6 kg 1.676 m Collin Barry DO 04/02/2018 2:44 PM Signed [facility] [place] [facility] Department of Cardiovascular Medicine SECTION OF REGIONAL CARDIOLOGY Consultation requested by Rena Renner DO for an opinion regarding Karma Rojo. My final recommendations will be communicated back to the requesting physician by way of shared Medical record or letter to requesting physician via [place] mail. CC: palpitations HPI: Karma Rojo is a 42 year old female who is here today for establishment of cardiac care, palpitations, cardiac arrhythmia atrial fibrillation, abnormal echo findings and pericardial effusion. She has been having palpitations daily now and states this feels more like skipped beats rather than her prior AFib felt which was more of a racing sensation. She had most of her cardiac care at [facility] with the start of her cardiac of atrial fibrillation which began in 2007 while hospitalized for kidney stones. She had 2 additional episodes which required hospitalization where she was chemically converted and she had additional episodes which she converted spontaneously at home. She was started on Flecainide after her first atrial fibrillation episode and had her Flecainide increased. She was sent to [facility] to be evaluated for an atrial fibrillation ablation because she wanted to stop her Flecainide. She then had ablation 08/16/10 and subsequently presented with new pericardial effusion and SOB w/substernal pleuritic chest pain. Chest X-ray showed pleural effusion, low lung volumes and cardiomegaly. EKG stable. Trops peaked at 1.18, and trended downward. TTE with EF 58%, and small pericardial effusion with early tamponade physiology. Patient had pericardial drain placed on 08/20/10 with removal on 08/22/10 with 650cc drainage of serosanginous fluid in interim. Interval echo on 08/21/10 showed resolution of effusion and repeat echo the day after removal showed a small pericardial effusion next to the R atrium without tamponade physiology and patient reported marked improvement in her symptoms. It was noted that pericardial effusion was Most likely secondary to pericarditis vs perforation during (ablation) catheterization. Patient also had Coagulopathy on coumadin. The patient denies any regular aerobic exercise Patient denies SOB, chest pain, dizziness, lightheadedness, lower extremity edema, PND, orthopnea, presyncope, syncope or claudication symptoms. PAST MEDICAL HISTORY Diagnosis Date - PMH - PAST MEDICAL HISTORY OF 2007 right foot 4th digit fx - PMH - PAST MEDICAL HISTORY OF 08/2007 Atrial Fibrillation s/p ablation 2010 - Unspecified hemorrhoids without mention of complication - Urinary calculus, unspecified Renal stones - Variants of migraine, not elsewhere classified, without mention of intractable migraine without mention of status migrainosus PAST SURGICAL HISTORY Procedure Laterality Date - ABLATE HEART DYSRHYTHM 2010 afib - PAST SURGICAL HISTORY OF 1991 R KNEE SURGERY - PAST SURGICAL HISTORY OF 1993 WISDOM TEETH EXTRACTION - PAST SURGICAL HISTORY OF polyp removal from uterus - PAST SURGICAL HISTORY OF 01/2015 kidney stones/stents X2 - THYROID SURGERY HX 04/2015 parathyroid removed FAMILY HISTORY Problem Relation Age of Onset - Hypertension Mother - Osteoporosis Maternal Grandmother - Arthritis Maternal Grandmother - Diabetes Maternal Grandfather - Cancer Maternal Grandfather SKIN - Stroke Maternal Grandfather - Hypertension Maternal Grandfather - Cancer Paternal Grandfather LUNG - Diabetes Paternal Aunt - other (CHONG SYNDROME) Sister - Cancer Maternal Uncle - Hypertension Brother SOCIAL HISTORY Social History Marital status: Spouse name: Enrique Years of education: 18 Number of children: 1 Occupational History 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 CURRENT MEDICATIONS: Current Outpatient Prescriptions: busPIRone (BUSPAR) 15 mg tablet Take 1 tablet by mouth once daily. CALCIUM ORAL Take 1,500 mg by mouth three times daily. Cholecalciferol, Vitamin D3, 5,000 unit tab Take 5,000 Units by mouth once daily. metoprolol tartrate, short acting, (LOPRESSOR) 25 mg tablet Take 25 mg by mouth once daily. No current facility-administered medications for this visit. ROS: Card: See present history. Pulm: Negative for cough, hemoptysis, wheezing, COPD, dyspnea or shortness of breath Gastro: No nausea, vomiting, or diarrhea GenUr: No history of dysuria, frequency or incontinence Endo: Negative for cold or heat intolerance, polyuria or polydipsia. Neuro: no focal weakness, focal sensory loss, headache, visual changes, seizure activity, ataxia, speech/language loss. Musculoskeletal: Negative for joint or muscle pain, back pain, or swelling. Infect: no fevers, chills, rigors or night sweats. Skin: Negative for lesions, rash, and itching. Heme: Negative for prolonged bleeding, bruising easily or swollen nodes. The remainder of the review of systems is negative. PHYSICAL EXAMINATION: GENERAL: alert cooperative, pleasant oriented x 3 (self, time and place) in no acute distress Ht 167.6 cm (5' 6) BMI 29.70 kg/m? Last 3 Encounter BP Readings: Date: BP: 08/19/2017 138/84 05/25/2016 138/88 11/09/2015 110/76 Last 3 Encounter Pulse Readings: Date: Pulse: 08/19/2017 106 05/25/2016 76 11/09/2015 78 Last 3 Encounter Wt Readings: Date: Wt: 08/19/2017 83.5 kg (184 lb) 06/10/2016 82.1 kg (181 lb) 05/25/2016 83 kg (183 lb) SKIN: warm, dry, no rash. NECK: supple, no palpable masses, no JVD, carotids well felt, no bruits. CARDIAC: [place] palpable in the 5th intercostal space mid clavicular line, normal S1 and S2, no murmurs, gallops, or rubs. CHEST: Normal respiratory efforts, lungs clear to auscultation bilaterally. ABDOMEN: Soft, no tenderness, rigidity, or masses. No palpable liver or spleen. Normal bowel sounds, no bruits. NEURO: intact cranial nerves II through XII, no motor or sensory deficits in all 4 extremities. EXTREMITIES: No cyanosis, clubbing, or edema. Peripheral pulses well felt. CARDIAC (AND OTHER IMPORTANT) TESTING: The following testing (including images and tracings) were personally reviewed by myself: LABS: No results found for: CHOL, HDL, LDL, TG ASSESSMENT/PLAN: 1. Palpitations - ICD9: 785.1, ICD10: R00.2 (primary diagnosis) Possible ectopy rather than recurrent AF but will check 14 day monitor 2. Paroxysmal atrial fibrillation (HCC) - ICD9: 427.31, ICD10: I48.0 No recurrent symptoms [id number] = 1(gdr) Patient on asa 3. History of cardiac radiofrequency ablation (RFA) - ICD9: V45.89, ICD10: Z98.890 Done in 2010 at [facility] in [place] Normal PVs on post op MRI 4. Primary hyperparathyroidism (HCC) - ICD9: 252.01, ICD10: E21.0 5. Cardiac tamponade - ICD9: 423.3, ICD10: I31.4 Complication of ablation in 2010 requiring pericardiocentesis 6. Family h/o genetic cardiomyopathy She has been having some palpitations which to her feel more consistent with skipped beats rather than racing sensation that she had with her atrial fibrillation 7-8 years ago. She has not been on any antiarrhythmic treatment or anticoagulation since her ablation. She was on flecainide prior to this however it was unsuccessful in controlling atrial fibrillation. We will check a 14 day monitor to see if she's having any breakthrough atrial dysrhythmia or whether there is any symptom-rhythm correlation related to atrial or ventricular ectopy for her palpitations. Her father has a genetic or familial cardiomyopathy and has been gene tested. We will obtain an echocardiogram for her in light of her palpitations and this family history. We will also check a TSH as her level in our system in 2014 was low normal. I will follow-up with her to review these findings. Thank you for allowing me the privilege of participating in the care of your patient. Please do not hesitate to contact me if there are any questions. Collin Barry DO, FACC, FCCP, FACOI CC: Rena Renner DO (DrC) [id number] [facility] [address] [place] [address] Yelitza Phillips RN 04/02/2018 12:33 PM Signed EVENT MONITOR DISPOSABLE PATCH INSTRUCTIONS Patient Name: Karma Rojo Clinic Number: [id number] Skin prepped and cleansed with alcohol Patch secured to prepped area Monitor Activated Serial #: [id number] Patient Instructed: 1.) Prescribed order timeframe 2.) Bathing guidelines 3.) Usage of event button and diary documentation 4.) Return of monitor at the end of prescribed order 5.) Call with problems [phone] or [phone] ext. [phone] Patient expresses a good understanding of instructions Yelitza Phillips RN Referring Provider: SELF [[id number]] Allergies As of Date: 04/02/2018 (No Known Allergies) Date Reviewed: 10/10/2017 Reviewed by: Krysten Dunne RN - Fully Assessed Reason for Visit: CARD New Patient Consult [1228] Cmt: Daily palpitations. HX of ablation 07/2010 Reason For Visit History Recorded Primary Visit Diagnosis:Palpitations [R00.2] Other Visit Diagnoses:Paroxysmal atrial fibrillation (HCC) [I48.0] History of cardiac radiofrequency ablation (RFA) [Z98.890] Primary hyperparathyroidism (HCC) [E21.0] Cardiac tamponade [I31.4] Order(s):ECG COMPLETE W INTERPRETATION [ECG01] Order #: [id number] FUTURE TSH BLD [SQTSH] Order #: [id number] FUTURE OUTSIDE VENDOR CARDIAC OUTPATIENT EXTENDED RHYTHM RECORDING (WITHOUT TELEMETRY) [7824836] Order #: [id number]: 1 ECHO [672900] Order #: [id number]: 1 FUTURE perflutren lipid microspheres (DEFINITY) 1.1 mg/mL injection (to be provided with echo procedure)Inject 1.3 mL intravenously as directed.Disp: 1.3 mLRfl: 0 Prescriptions as of 04/02/2018 Sig: PERFLUTREN LIPID MICROSPHERES* Inject 1.3 mL intravenously a* BUSPIRONE 15 MG TABLET Take 1 tablet by mouth once d* CALCIUM ORAL Take 1,500 mg by mouth three * CHOLECALCIFEROL (VITAMIN D3) * Take 5,000 Units by mouth onc* METOPROLOL TARTRATE 25 MG TAB* Take 25 mg by mouth once josé miguel* Problem List As Of Date 04/02/2018 Noted Resolved Chest pain of pericarditis [I31.9] INVALID FOR* More... Primary hyperparathyroidism (HCC) [E21.0] INVALID FOR* Atrial fibrillation (HCC) [I48.91] INVALID FOR* Nontoxic multinodular goiter [E04.2] INVALID FOR* Plantar fasciitis, left [M72.2] INVALID FOR* Visit Notes: >> Yelitza Phillips RN MonApr 02, 2018 12:31 PM Status: Signed EVENT MONITOR DISPOSABLE PATCH INSTRUCTIONS Patient Name: Karma Rojo Clinic Number: [id number] Skin prepped and cleansed with alcohol Patch secured to prepped area Monitor Activated Serial #: [id number] Patient Instructed: 1.) Prescribed order timeframe 2.) Bathing guidelines 3.) Usage of event button and diary documentation 4.) Return of monitor at the end of prescribed order 5.) Call with problems [phone] or [phone]. [phone] Patient expresses a good understanding of instructions Yelitza Phillips RN Prescriptions ordered this encounter Disp Refills Start End PERFLUTREN LIPID MICROSPHERES 1.1 MG* 1.3 * 0 04/02/2018 04/02/2019 Class: In Office Route: INTRAVENOUS Sig: Inject 1.3 mL intravenously as directed. Disposition: Return in about 3 months (around 07/01/2018). Follow-up and Disposition History Recorded Encounter Status:Closed by COLLIN BARRY DO on 04/02/18 PROCEDURE Observed: 04/02/2018 Status: COMPLETED Source: [place] 12:00 AM [facility] REPOSITORY O ID: [id number] Author: Collin Barry Service: (none) Author Type: Physician Type: Procedures Filed: 04/30/2018 8:29 AM Note Text: Final Interpretation Patient had a min HR of 77 bpm, max HR of 179 bpm, and avg HR of 105 bpm. Predominant underlying rhythm was Sinus Rhythm. 2 Supraventricular Tachycardia runs occurred, the run with the fastest interval lasting 4 beats with a max rate of 179 bpm, the longest lasting 9 beats with an avg rate of 162 bpm. Isolated SVEs were rare (<1.0%), SVE Couplets were rare (<1.0%), and SVE Triplets were rare (<1.0%). Isolated VEs were rare (<1.0%), VE Couplets were rare (<1.0%), and no VE Triplets were present. Collin L. Amalfitano, DO, FACC, FCCP, FACOI CNCO Observed: 03/19/2018 Status: COMPLETED Source: [place] 4:26 PM [facility] REPOSITORY O ID: [id number] Author: Mammography Coordinator Service: (none) Author Type: Physician Type: Letter Filed: 03/20/2018 11:33 PM Note Text: March 19, 2018 PID: [id number] Karma Rojo [address] [place] [address] Dear Ms. Rojo, We are pleased to inform you that the results of your recent breast imaging exam on 03/19/2018 are normal. Early detection of cancer is very important. We also understand recommendations regarding breast cancer screening are controversial. Please discuss with your primary care provider which strategy is best for you and whether a mammogram is right for you. Your imaging studies and report will be kept on file at [facility] as part of your permanent medical record and are available for your continuing care. Thank you for allowing us to help in meeting your health care needs. Sincerely, Dr. Tyson Interpreting Radiologist [facility] (Normal over 40) [facility] SCREENING Observed: 03/19/2018 Status: F Source: [place] 4:16 PM [facility] REPOSITORY * * *Final Report* * * DATE OF EXAM: Mar 19 2018 4:16PM [facility] 0581 - [facility] SCREENING / PROCEDURE REASON: Encounter for screening mammogram for malignant neoplasm of breast * * * * Physician Interpretation * * * * RESULT: #[id number] - [facility] SCREENING BILATERAL DIGITAL SCREENING MAMMOGRAM WITH CAD: 03/19/2018 HISTORY: Encounter For Screening Mammogram For Malignant Neoplasm Of Breast /Screening Mammogram - patient reports NO breast symptoms /Priors available for comparison. RESULT: TECHNIQUE: The study was acquired using full field digital technology and interpreted from soft copy. Current study was also evaluated with a Computer Aided Detection (CAD). Comparison is made to exams dated: 06/15/2016 mammogram - [facility] and 12/27/2013 mammogram. There are scattered fibroglandular elements in both breasts. No significant masses, calcifications, or other findings are seen in either breast. There has been no significant interval change. IMPRESSION: There is no mammographic evidence of malignancy. A 1 year screening mammogram is recommended. Judy Tyson M.D., lp/oriana:03/19/2018 16:26:24 Tower Operator(s): RT Jesica(R)(M), [facility] letter sent: Normal over 40 Mammogram BI-RADS: 1 Negative Multiple national specialty organizations have released breast cancer screening guidelines for women at average risk for developing breast cancer - guidelines that are based on both evidence and opinion, yet differ on when to start and how often to screen for breast cancer. With representation from Breast Imaging, Internal Medicine, Women's Health, Family Medicine, and Medical/Surgical Oncology, the [facility] has carefully reviewed the data and reached the following consensus: 1) All women should engage in shared decision-making with their providers to decide when to start and how often to screen; 2) All women should have the opportunity to start screening mammography at age 40; 3) For women ages 45-55, we recommend annual screening mammograms; 4) For women ages 55 and over, we support both the transition from an annual to a biennial interval if this aligns more with patient's values and preferences, or continuation with annual screening; 5) All women should discuss with their providers when to stop screening mammograms. Door Core Assembler: Oriana Transcribe Date/Time: Mar 19 2018 3:58P Dictated by: JUDY TYSON MD This examination was interpreted and the report reviewed and electronically signed by: JUDY TYSON MD on Mar 19 2018 4:26PM EST [id number] EMERGENCY DEPARTMENT Observed: 03/02/2018 Status: F Source: [place] SUMMARY 7:25 AM [facility] [place] [place] REPOSITORY [facility] Medical Records Department [address] [place] [id number] Emergency Department Summary 03/01/18 2233 MR#: [id number] Acct: [id number] Name: KARMA ROJO Rep #: [id number] : 1975 42 From: Kartik Hays MD PCP: Rena Renner DO Status: DEP ER - ER Visit Summary Date of Service: 03/01/18 Chief Complaint: Flank pain History of Present Illness: The patient is a 42 F with a history of kidney stone presents with flank pain similar to prior kidney stones that started earlier this morning. No fever or chills she has no abdominal pain. She has slight nausea but this was after she took a Percocet. No fever or chills dysuria or hematuria. Physical Examination: Currently she appears in mild distress Moist mucous membranes, no obvious facial deformity No C-spine tenderness supple neck. Regular rate and rhythm without any obvious murmurs Clear lungs bilaterally speaking in full sentences without any obvious respiratory distress Abdomen soft and nontender no guarding or rebound. She does have left-sided CVA tenderness. Moves all extremities without any difficulty or pain. Skin does not show any obvious rashes or lesions, no trauma. Alert oriented 3 with no gross focal deficit Emergency Department Course and Treatment: Patient received 2 doses of opiate analgesics her pain is now controlled. She also received Toradol. She has a 5 mm distal ureteral stone. I told her that there is a decent chance that she will pass it on her own I referred her back to Dr. Soto. She will be discharged in stable condition Impression: Kidney stone This note was generated with [employer] dictation software. It may contain incorrect words, spelling, and punctuation that were not noted in review of the chart prior to signing ED Disposition - Plan for ED Patient: Disposition: Home or Assisted Living Chief Complaint: Flank Pain Instructions: ED Stone Renal W Colic Prescriptions: Oxycodone HCl/Acetaminophen [Percocet 5/325] 1 tab PO Q6H PRN PRN 3 Days #12 tab PRN Reason: Pain Ondansetron [Zofran Odt] 4 mg PO Q8H PRN PRN #10 tab PRN Reason: Nausea Tamsulosin HCl [Flomax] 0.4 mg PO DAILY #5 cap Referrals: Mark Abreu MD [STAFF PHYSICIAN] - 3-5 Days What to do if you have Problems For any increased pain, shortness of breath, bleeding, nausea or vomiting, chest pain, or any unexpected problems, contact your Primary Care Provider. Call [facility] ([phone]) or report to the closest Emergency Room. Call 911 if necessary. 03/02/18 0724 <Electronically signed by Kartik Hays MD> Date Kartik Hays MD Cosigner Signature (If Indicated): Date CC: Rena Renner DO CBC W/DIFF, AUTOMATED Collected: 03/01/2018 Status: F Source: [place] 10:39 PM [facility] [place] [place] REPOSITORY TYPE CODE TESTS RESULT OUT OF RANGE REFERENCE UNITS LAB L100.1000 4.4-11.0 K/mm3 Normal WBC 7.1 LAB L100.1200 4.2-5.4 M/mm3 Normal RBC 4.42 LAB L100.1300 12.0-15.0 g/dl Normal HGB 12.4 LAB L100.1400 37-47 % Normal HCT 37.2 LAB L100.1500 81-99 fL Normal MCV 84.2 LAB L100.1600 27.0-32.0 pg Normal MCH 28.1 LAB L100.1700 32-36 g/gl Normal MCHC 33.3 LAB L100.1810 11.6-14.6 % Normal RDW CV 13.0 LAB L100.1820 35.1-43.9 fl Normal RDW SD 39.6 LAB L100.1900 150-450 K/mm3 Normal PLT 294 LAB L100.2000 6.2-12.0 fl Normal MPV 8.7 LAB L100.2100 47-70 % Normal NEUT% 68.6 LAB L100.2200 19-41 % Normal LY% 21.7 LAB L100.2300 0-10 % Normal MONO% 7.5 LAB L100.2400 0-5 % Normal EO% 2.0 LAB L100.2500 0-1 % Normal BASO% 0.1 LAB L100.2550 0.0-0.9 % Normal IM GRAN % 0.100 Result Comment: IG% - Immature Granulocytes (promyelocytes, myelocytes and metamyelocytes) > 1% indicates that a LEFT SHIFT is Present. LAB L100.2620 2.0-7.7 X10 3/uL Normal Absolute Neut 4.8 LAB L100.2720 0.83-4.51 X10 3/ul Normal Absolute Lymph 1.53 Performed By: #### L100.0100 #### [facility] [address] [place], [address] BASIC METABOLIC Collected: 03/01/2018 Status: F Source: [place] PROFILE (BMP) 10:39 PM [facility] [place] [place] REPOSITORY TYPE CODE TESTS RESULT OUT OF RANGE REFERENCE UNITS LAB L501.0100 74-106 mg/dL Normal GLU 100 Result Comment: Fasting Glucose result from 100 to 125 mg/dL suggests IMPAIRED HOMEOSTASIS per A.D.A. criteria. Please note revised GLUCOSE reference range effective 2017. LAB L501.1000 7-18 mg/dL Normal BUN 17 LAB L501.1100 0.55-1.02 mg/dL Normal CREAT,SERUM 0.97 Result Comment: The validity of the calculated GFR AND GFRAA in patients over 70 years has not been determined. Clinical correlation is essential. LAB L501.1110 >60 mL/min Normal EST GFR 66 Result Comment: Non- GFR Calc LAB L501.1115 >60 mL/min Normal EST GFR - AA 80 Result Comment: GFR Calc LAB L501.1255 ml/min Normal Estimated CRCL 69.29 LAB L501.1300 10-20 RATIO Normal BUN/CRE 17.5 LAB L501.2200 8.5-10 mg/dL Normal .1 CA 8.6 LAB L501.5300 136-14 mmol/L Normal 5 NA 138 LAB L501.5600 3.5-5. mmol/L Normal 1 K 3.6 LAB L501.5900 98-107 mmol/L Normal CL 106 LAB L501.6100 21.0-3 mmol/L Normal 2.0 CO2 25.0 LAB L501.6200 5-15 Normal GAP 7 Performed By: #### L500.2500 #### [facility] [address] [place], [address] ABDOMEN/PELVIS WITHOUT Observed: 03/01/2018 Status: F Source: [place] CONT 10:34 PM [facility] [place] [place] REPOSITORY [facility] Imaging Services [address] [place] [address] Abdomen/Pelvis without Cont MR#: [id number] Acct: [id number] Name: KARMA ROJO Rep #: [id number] : 1975 F 42 From: Gold Lowery DO PCP: Rena Renner DO Status: REG ER Study: Abdomen/Pelvis without Cont Date of Exam: 03/01/18 Exam# [id number] Ordering Dr: Kartik Hays MD STUDY: CT ABDOMEN AND PELVIS WITHOUT CONTRAST REASON FOR EXAM: Female, 42 years old. Left flank pain. History of ureteral stents in the past. RADIATION DOSAGE (If Supplied By Facility): CTDIvol = ( 11.12 ) mGy, DLP = ( 564.06 ) mGycm TECHNIQUE: Transaxial images were obtained from the dome of the diaphragm to the symphysis pubis without oral contrast, and without intravenous contrast. Sagittal and coronal images were reconstructed. Individualized dose optimization techniques were used for this CT. COMPARISON: CT of the abdomen and pelvis, October 27, 2017. FINDINGS: The visualized lung bases are unremarkable. The visualized portions of the heart are within normal limits. Normal liver. Normal gallbladder and extrahepatic biliary system. Normal spleen. Normal pancreas. Normal bilateral adrenal glands. The right kidney is of normal size and cortical thickness. There is a small cyst in the lower pole. There are multiple renal calculi. The largest measures 4 mm. There is no hydronephrosis. Normal right ureter. The left kidney is of normal size and cortical thickness. There are multiple renal calculi. The largest measures 8 mm in greatest dimension. There is hydronephrosis and ureterectasis to the pelvic sidewall where there is nonobstructing 5 mm calculus (image 154, series 2). Normal visualized stomach. Normal small intestine. Normal colon. The appendix is visualized and appears normal. Normal abdominal aorta. Normal inferior vena cava. Normal retroperitoneum. Normal urinary bladder. Uterus is anteverted and grossly unremarkable. Normal ovaries. No pelvic lymphadenopathy. No free air or free fluid is seen within the abdominal cavity. There is a small umbilical hernia of omental fat. Abdominal wall is otherwise intact. Normal osseous structures. CT/Abdomen/Pelvis without Cont IMPRESSION: 1. Distal left ureteral calculus with moderate obstructive uropathy. This appears unchanged from prior exam. 2. Multiple bilateral nonobstructing renal calculi. 3. No other major interval change. Electronically Signed: Gold Lowery at 23:19 EST Tel [phone], Service support , CC: Rena Renner DO; Kartik Hays MD Door Core Assembler: Signed URINALYSIS, COMPLETE Collected: 03/01/2018 Status: F Source: [place] 10:30 PM [facility] [place] [place] REPOSITORY Order Comment: How was Urine Obtained? CLEAN CATCH TYPE CODE TESTS RESULT OUT OF RANGE REFERENCE UNITS LAB L400.3000 Yellow COLOR Normal Yellow LAB L400.3050 Clear Normal CLARITY Clear LAB L400.3200 Normal mg/dl Normal GLUCOSE, UR Normal LAB L400.3300 Negative mg/dL Normal BILIRUBIN URINE Negative LAB L400.3400 Negative mg/dl Normal KETONE UR Negative LAB L400.3465 1.002-1.030 Normal SP.GR. DIPSTX 1.015 LAB L400.3550 5.0 - 8.0 pH UR Normal 7.0 LAB L400.3600 Negative mg/dl PROT Normal DIPSTX Negative LAB L400.3700 Normal mg/dl Normal UROBILI Normal LAB L400.3750 Negative Normal NITRITE UR Negative LAB L400.3780 Negative /ul Normal OCCULT BLOOD-UR Negative LAB L400.3800 Negative /ul LEUK Normal ESTERASE Negative LAB L400.4050 0-5 /hpf WBC Normal 0-5 SEEN LAB L400.4100 0-5 /hpf 0 Normal RBC-UA SEEN LAB L400.4150 5-10 /hpf SQUAM Normal EPI 0-5 SEEN LAB L400.4300 None Seen /hpf 0 Normal BACTERIA SEEN LAB L400.4350 <or=2+ /hpf 0 Normal MUCUS, URINE SEEN Performed By: #### L400.0001 #### [facility] [address] [place], [address] CNNURSE Observed: 01/20/2018 Status: COMPLETED Source: [place] 10:20 AM [facility] REPOSITORY Nurse Visit (CORWST) ELENKARMA Mensah ([id number]) 1975 F Date Time Provider Department 01/20/18 10:20 AM [facility] During your visit today, we recorded the following information about you: Marisela Ramsey CMA, RONNIE 01/20/2018 10:21 AM Signed 42 year old female here for INACTIVATED INFLUENZA VACCINE. 1468-0828 Season Patient is identified by name and date of : Yes [] CONTRAINDICATIONS color enhanced section Age less than 6 months? No Allergy to eggs, chicken, chicken feathers, or chicken dander? No Allergy to thimerosal (a preservative) or formaldehyde, gelatin? No History of severe reaction to any vaccine component or a previous dose of influenza vaccination? No History of Guillain-Toa [place] Syndrome within 6 weeks after a previous influenza vaccine? No Patient is not moderately or severely ill? No Current temperature greater or equal to 100.4F? No History of Bone Marrow Transplant prior 6 months or solid organ transplant in the past 3 months ? No History of fainting after a prior injection or medical procedure? No- ? If patient has fainted in the past, the CDC recommends sitting or lying down for 15 minutes after the vaccination. [] VERIFICATION color enhanced section Was the answer Yes for any of the above contraindications? No contraindications present. Acceptable to proceed with vaccine. Patient/guardian agrees the above answers are true to the best of their knowledge? Yes Flu vaccine information sheet given? Yes See immunization activity in [facility] for details of immunizations adminstered today. Patient age: [age] year old For The 3217-7497 Flu Season 6-35 months old: Fluzone 0.25 ml - IM (Preservative Free) 3 years of age: Fluzone 0.5 ml - IM (Preservative Free) 3 years and older: Fluzone 0.5 ml- IM-(with Preservatives) 65+ years old: 2-49 years old Fluzone High-Dose 0.5 ml - IM (Preservative Free) FLUMIST- intranasal REMEMBER: If patient is less than 9 years of age and this is the first vaccine of Influenza to be received in any flu season, they should receive a second dose in one months time. Referring Provider: SELF [200] Allergies As of Date: 01/20/2018 (No Known Allergies) Date Reviewed: 10/10/2017 Reviewed by: Krysten Dunne RN - Fully Assessed Reason for Visit: Imm/Inj [58] Cmt: Flu Vaccine Primary Visit Diagnosis:Need for vaccination [Z23] Order(s):INFLUENZA VACCINE QUADRIVALENT AGE 3 YRS PLUS + IM [[id number]] Order #: [id number] Prescriptions as of 01/20/2018 Sig: BUSPIRONE 15 MG TABLET Take 1 tablet by mouth once d* CALCIUM ORAL Take 1,500 mg by mouth three * CHOLECALCIFEROL (VITAMIN D3) * Take 5,000 Units by mouth onc* METOPROLOL TARTRATE 25 MG TAB* Take 25 mg by mouth once josé miguel* Problem List As Of Date 01/20/2018 Noted Resolved Chest pain of pericarditis [I31.9] INVALID FOR* More... Primary hyperparathyroidism (HCC) [E21.0] INVALID FOR* Atrial fibrillation (HCC) [I48.91] INVALID FOR* Nontoxic multinodular goiter [E04.2] INVALID FOR* Plantar fasciitis, left [M72.2] INVALID FOR* Encounter Status:Closed by MARISELA RAMSEY CMA on 01/20/18 PROGRESS Observed: 01/20/2018 Status: COMPLETED Source: [place] 10:14 AM [facility] REPOSITORY HNO ID: [id number] Author: Marisela Ramsey MA Service: (none) Author Type: Fur Ironer Type: Progress Notes Filed: 01/20/2018 10:21 AM Note Text: 42 year old female here for INACTIVATED INFLUENZA VACCINE. 6930-1850 Season Patient is identified by name and date of : Yes [] CONTRAINDICATIONS color enhanced section Age less than 6 months? No Allergy to eggs, chicken, chicken feathers, or chicken dander? No Allergy to thimerosal (a preservative) or formaldehyde, gelatin? No History of severe reaction to any vaccine component or a previous dose of influenza vaccination? No History of Guillain-Toa [place] Syndrome within 6 weeks after a previous influenza vaccine? No Patient is not moderately or severely ill? No Current temperature greater or equal to 100.4F? No History of Bone Marrow Transplant prior 6 months or solid organ transplant in the past 3 months ? No History of fainting after a prior injection or medical procedure? No- ? If patient has fainted in the past, the CDC recommends sitting or lying down for 15 minutes after the vaccination. [] VERIFICATION color enhanced section Was the answer Yes for any of the above contraindications? No contraindications present. Acceptable to proceed with vaccine. Patient/guardian agrees the above answers are true to the best of their knowledge? Yes Flu vaccine information sheet given? Yes See immunization activity in [facility] for details of immunizations adminstered today. Patient age: [age] year old For The 9455-6344 Flu Season 6-35 months old: Fluzone 0.25 ml - IM (Preservative Free) 3 years of age: Fluzone 0.5 ml - IM (Preservative Free) 3 years and older: Fluzone 0.5 ml- IM-(with Preservatives) 65+ years old: 2-49 years old Fluzone High-Dose 0.5 ml - IM (Preservative Free) FLUMIST- intranasal REMEMBER: If patient is less than 9 years of age and this is the first vaccine of Influenza to be received in any flu season, they should receive a second dose in one months time. EMERGENCY DEPARTMENT Observed: 10/27/2017 Status: F Source: DENT SUMMARY 11:46 PM [facility] [place] [place] REPOSITORY [facility] Medical Records Department [address] [place] [address] Emergency Department Summary 10/27/17 2300 MR#: [id number] Acct: [id number] Name: KARMA ROJO Rep #: [id number] : 1975 41 From: Yasmany Allen MD PCP: Rena Renner DO Status: DEP ER - ER Visit Summary Date of Service: 10/27/17 Chief Complaint: Left flank pain History of Present Illness: The patient is a [address] Renner and Dr. Abreu. She reports she has left flank pain that began October 25 and is much worse today. It is a sharp, stabbing pain is 10 out of 10 at worst 9-10 currently. Is worsened by nothing relieved by nothing. She has had nausea without vomiting. No dysuria or frequency. She reports this is similar to when she has had kidney stones in the past. Physical Examination: Vitals: Stable. Afebrile. General: Well-nourished and well-developed. Head: Normocephalic atraumatic. Neck: Supple, no lymphadenopathy. No JVD. Nontender. Cardiovascular: Regular rate and rhythm. No murmurs. Respiratory: No respiratory distress. Clear to auscultation bilaterally. Abdominal: Soft, nontender, nondistended, normal bowel sounds. No guarding, rebound, or peritoneal signs. Back: Nontender. Extremities: Nontender, no edema. Skin: Normal color, no rash. Neurologic: Alert and oriented 3. Cranial nerves II through XII are intact. Normal strength and sensation. Psych: Normal affect. Test Results: Urinalysis shows no evidence of infection. test negative. CT flank shows a 5 mm distal left ureteral calculus with moderate hydronephrosis/hydroureter. Emergency Department Course and Treatment: Patient was treated with Dilaudid, Toradol, and Zofran IV. She is resting comfortably. Treatment Plan: Patient will be discharged with naproxen, Percocet, Flomax, and Zofran. Instructed to strain her urine and follow Dr. Abreu if she does not pass the stone within the next week. Return to the emergency department for any worsening symptoms. Disposition: To home in improved and stable condition. Impression: 1. Left ureterolithiasis. This note was generated with [employer] dictation software. It may contain incorrect words, spelling, and punctuation that were not noted in review of the chart prior to signing ED Disposition - Plan for ED Patient: Chief Complaint: Flank Pain Instructions: ED Stone Renal W Colic Prescriptions: Oxycodone HCl/Acetaminophen [Percocet 5/325] 1 tablet PO Q6H PRN PRN 5 Days #20 tablet PRN Reason: Pain Ondansetron [Zofran Odt] 4 mg PO Q8H PRN PRN #10 tablet PRN Reason: Nausea Tamsulosin HCl [Flomax] 0.4 mg PO DAILY #7 capsule Naproxen [Naprosyn] 500 mg PO BID #14 tablet Referrals: Mark Abreu MD [STAFF PHYSICIAN] - 1 Week if not improving What to do if you have Problems For any increased pain, shortness of breath, bleeding, nausea or vomiting, chest pain, or any unexpected problems, contact your Primary Care Provider. Call [facility] ([phone]) or report to the closest Emergency Room. Call 911 if necessary. 10/27/17 8056 <Electronically signed by Yasmany Allen MD> Date Yasmany Allen MD Cosigner Signature (If Indicated): Date CC: Rena Renner DO URINALYSIS, COMPLETE Collected: 10/27/2017 Status: F Source: [place] 9:10 PM [facility] [place] [place] REPOSITORY Order Comment: Order Date: 10/27/17 How was Urine Obtained? CLEAN CATCH TYPE CODE TESTS RESULT OUT OF RANGE REFERENCE UNITS LAB L400.3000 Yellow COLOR Normal Yellow LAB L400.3050 Clear Normal CLARITY Clear LAB L400.3200 Normal mg/dl Normal GLUCOSE, UR Normal LAB L400.3300 Negative mg/dL Normal BILIRUBIN URINE Negative LAB L400.3400 Negative mg/dl Normal KETONE UR Negative LAB L400.3465 1.002-1.030 Normal SP.GR. DIPSTX 1.010 LAB L400.3550 5.0 - 8.0 pH UR Normal 7.0 LAB L400.3600 Negative mg/dl High PROT 15 DIPSTX LAB L400.3700 Normal mg/dl Normal UROBILI Normal LAB L400.3750 Negative Normal NITRITE UR Negative LAB L400.3780 Negative /ul High 10 OCCULT BLOOD-UR LAB L400.3800 Negative /ul High LEUK 25 ESTERASE LAB L400.4050 0-5 /hpf WBC Normal 0-5 SEEN LAB L400.4100 0-5 /hpf 0 Normal RBC-UA SEEN LAB L400.4150 5-10 /hpf SQUAM Normal EPI 0-5 SEEN LAB L400.4300 None Seen /hpf 0 Normal BACTERIA SEEN LAB L400.4350 <or=2+ /hpf 0 Normal MUCUS, URINE SEEN Performed By: #### L400.0001 #### [facility] [address] [place], [place], [id number] ,SERUM,HCG QUALI. Collected: Status: P Source: DENT 10/27/2017 9:10 PM [facility] [place] [place] REPOSITORY TYPE CODE TESTS RESULT OUT OF REFERENCE UNITS RANGE LAB L700.7000 0-9 Nonpreg Negative Normal HCGSQUAL NEGATIVE Performed By: #### L700.6800 #### [facility] [address] [place], [place], [id number] ,URINE Collected: 10/27/2017 Status: F Source: [place] 9:10 PM [facility] [place] [place] REPOSITORY Order Comment: Order Date: 10/27/17 TYPE CODE TESTS RESULT OUT OF REFERENCE UNITS RANGE LAB L400.8000 Negative Normal HCGUQUAL Negative Result Comment: Very dilute urine specimens, as indicated by a low specific gravity, may not contain payable representative levels of hCG. If is still suspected, a first morning urine specimen should be collected 48 hours later and tested. Performed By: #### L400.7600 #### [facility] [address] [place], [address] ABDOMEN/PELVIS WITHOUT Observed: 10/27/2017 Status: F Source: [place] CONT 8:51 PM [facility] REPOSITORY [facility] Imaging Services [address] [place] [address] Abdomen/Pelvis without Cont MR#: [id number] Acct: [id number] Name: KARMA ROJO Rep #: [id number] : 1975 F 41 From: Bill Sousa MD PCP: Rena Renner DO Status: REG ER Study: Abdomen/Pelvis without Cont Date of Exam: 10/27/17 Exam# [id number] Ordering Dr: Yasmany Allen MD STUDY: CT ABDOMEN AND PELVIS WITHOUT CONTRAST REASON FOR EXAM: Female, 41 years old. Kidney stones. RADIATION DOSAGE (If Supplied By Facility): CTDIvol = ( 11.89 ) mGy, DLP = ( 594.17 ) mGycm TECHNIQUE: Transaxial images were obtained from the dome of the diaphragm to the symphysis pubis without oral contrast, and without intravenous contrast. Sagittal and coronal images were reconstructed. Individualized dose optimization techniques were used for this CT. COMPARISON: 06/06/2015. FINDINGS: The visualized lung bases are unremarkable. The visualized portions of the heart are within normal limits. Normal liver. Normal gallbladder and extrahepatic biliary system. Normal spleen. Normal pancreas. Normal bilateral adrenal glands. Both kidneys have very numerous renal stones in all segments. On the right the largest is approximately 6 mm. On the left the largest is approximately 7 mm. Left kidney shows diffuse edema, perinephric stranding, and moderate hydronephrosis. There is moderate to marked left hydroureter down to a 5 mm probable distal left ureteral calculus on axial image 149. Evaluation of the GI tract is limited by absence of oral contrast. Cannot exclude stomach wall thickening. No dilated loops of bowel or evidence for obstruction. Cannot exclude segmental thickening of the padgett of the small or large bowel. Cannot exclude enteritis or colitis. Moderate diffuse fecal retention. Diverticulosis without definite diverticulitis. Appendix within normal limits. Normal abdominal aorta. Normal inferior vena cava. Normal retroperitoneum. Normal urinary bladder. Normal visualized uterus. There is a small umbilical hernia containing fat. Normal osseous structures. CT/Abdomen/Pelvis without Cont IMPRESSION: Obstruction of the left kidney, collecting system and ureter from a probable 5 mm distal left ureteral calculus. Additional very numerous bilateral renal stones in all segments. Electronically Signed: Bill Sousa MD at 22:39 EDT , Service support , CC: Rena Renner DO; Yasmany Allen MD Door Core Assembler: Signed CARDIOLOGY VISIT Observed: 10/12/2017 Status: F Source: DENT REPORT 11:00 AM [facility] [place] [place] REPOSITORY [facility] [address] [place] [address]. [address] [place] [address] OFFICE VISIT Date of Service: 10/12/17 MR#: [id number] Acct: [id number] Name: KARMA ROJO Rep #: [id number] : 1975 Provider: Joseph Mueller MD Age/Sex: 41/F Location: [facility] Status: Signed HPI HPI Chief Complaint: Follow-up visits. Details: KARMA ROJO, is a 41 F who presents to the office today for a follow-up visit for her atrial fibrillation status post pulmonary vein isolation which was complicated by pericardial effusion. She has been doing well since the procedure she denies any chest pain or shortness breath or paroxysmal nocturnal dyspnea or pedal edema she has had no neck arm or jaw discomfort suggest angina. She has had no dizziness or diaphoresis no near syncope or syncope. Her physical exam today demonstrates clear lung christensen regular rate and rhythm and no pedal edema. She says that she still complains of occasional palpitations but this does not appear to be long-lasting. You do remember her last echocardiogram from 2014 demonstrated normal left ventricular size and function and with excellent stress capacity. Intake Vital Signs10/12/17 Height 5 ft 6 in 10/12/17 Weight: 183 lb 10/12/17 Body Mass Index (BMI) 29.5 10/12/17 Blood Pressure 142/78 10/12/17 Blood Pressure Location Lt brachial Intake Visit Reasons: 1 Y FU Bulk Fluids Handler Required: No Accompanied by: NONE Is patient in pain?: No Allergies No Known Allergies Allergy (Verified 10/12/17 10:41) Medications Naproxen [Naprosyn] 500 mg PO BID PRN #20 tab 08/01/16 [Rx Confirmed 10/12/17] Ejection fraction %: 65 to 70 PFS Medical History Paroxysmal atrial fibrillation (Chronic) Pericardial effusion (Chronic 07/2010) History of pericarditis (Chronic 07/2010) Migraine (Chronic) Surgical History History of radiofrequency ablation (RFA) procedure for cardiac arrhythmia (Chronic 07/2010) History of parathyroidectomy (Chronic 04/2015) History of lithotripsy (Chronic 12/2014) History of ureter stent (Chronic 01/2015) Family History Father Negative for CAD Pacemaker Mother Hypertension Cardiomyopathy Brother Hypertension Social History Smoking Status: Never smoker alcohol intake: never caffeine: Yes Type: coffee Number of servings: 1, carbonated beverages, tea ROS Const Const: Negative for fatigue, weakness, night sweats, excessive sweating, frequent falls, headache(s) or daytime sleepiness Eyes Eyes: Negative for loss of peripheral vision, transient loss of vision, blind spots, double vision or blurry vision ENT ENT: Negative for headache(s), dizziness, balance problems, Nosebleed/epistaxis, tongue swelling or lip swelling Cardio Chest Pain: No Palpitations: Yes feels like its: fast (happens twice a day), skipping, irregular Edema: None Muscle aches with walking: None Resp Respiratory: Negative for SOB at rest, SOB orthopnea\SOB lying down, Cough, paroxysmal nocturnal dyspnea or SOB with activity GI GI: Negative nausea, vomiting, heartburn, black,tarry stools or bright, red blood in stools : Negative for hematuria Musc Musc: Negative for balance problems, muscle aches/ myalgia, muscle weakness or joint pain Skin Skin: Negative non-healing lesions, unusual bruising or rash Neuro Neuro: Negative for weakness, frequent falls, headache(s), double vision, dizziness, lightheadedness, orthostatic symptoms, blurry vision or lack of coordination Zenon Hematologic/Lymphatic: Negative for easy bruising or easy bleeding Endo Endo: Negative for fatigue, excessive sweating, cold intolerance, heat intolerance, increased thirst/drinking or hair loss Psych Psych: Negative for anxiety or depression Allergy Allergy/Immunology: Negative for throat swelling, Negative for tongue swelling, Negative for hives, Negative for rash, Negative for lip swelling Cardiology Exam Const Appearance: cooperative, healthy appearing, well developed, well groomed and no acute distress Nutritional Appearance: well nourished and average body habitus Orientation: alert, awake and oriented x3 Head Head: normal to inspection, normocephalic and atraumatic Ears: hearing grossly normal bilaterally and external ears normal Nose: external nose normal, nasal mucous membranes and turbinates normal, nares normal, septum normal, no nasal discharge Face and Sinus: face symmetric Mouth: oral mucosae normal, tongue normal, oropharynx normal and moist mucous membranes Teeth and gingiva: dentition normal Throat: posterior oropharynx normal, tonsils normal and uvula midline Eyes General: appearance normal, both eyes and all related structures Eyelids: eyelids normal Conjunctivae: conjunctivae normal Pupils: PERRL, normal by confrontation and accommodation normal EOM: EOM intact bilaterally Neck Neck: normal visual inspection, trachea midline and no JVD JVD: +5 Carotids: normal carotid upstroke and bounding pulses Chest Chest inspection: normal inspection of the chest, symmetric chest movement and normal respiratory effort Auscultation: Bilateral: Clear to Auscultation Cardio Palpation: normal PMI Rate: regular rate Rhythm: regular rhythm Heart sounds: S1 normal, S2 normal and normal, physiologic split S2; negative rub, gallop or murmur GI GI: normal to inspection, soft, no hepatosplenomegaly and bowel sounds present Neuro General: alert, awake, oriented x3, no focal sensory deficit, gait normal and moves all extremities Skin Skin: no rashes or lesions noted Extremities Pulses: Normal: Right Femoral Pulse, Left Femoral Pulse, Right Dorsalis Pedis Pulse, Left Dorsalis Pedis Pulse, Right Posterior Tibial Pulse, Left Posterior Tibial Pulse, Right Radial Pulse, Left Radial Pulse Lower Extremity Edema: None: Bilateral Musculoskel Musculoskeletal: No joint tenderness Psych Psychological: normal affect Assessment AND Plan 1. Paroxysmal atrial fibrillation I48.0 Plan Patient had a history of paroxysmal atrial for ablation for which she had an ablation. She appears to be doing well overall and my recommendation is for us to continue to observe her. At this time she is on no medications and out I will suggest that we make any changes. I think that her palpitations are largely secondary to premature atrial complexes which are benign. Thank you for allowing me to participate in the care of your patient. 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) Coding Level of Care Code Off vis,est,level 3 Diagnoses Paroxysmal atrial fibrillation I48.0 Coding Level of Care Code Off vis,est,level 3 Diagnoses Paroxysmal atrial fibrillation I48.0 10/12/17 1100 <Electronically signed by Joseph Mueller MD> Date Joseph Mueller MD Cosigner Signature: Date (if applicable) CC: Rena Renner DO PROGRESS Observed: 10/11/2017 Status: COMPLETED Source: [place] 12:48 PM [facility] REPOSITORY O ID: [id number] Author: Kareen (Cierra Frias Service: (none) Author Type: Physical Therapist Type: Progress Notes Filed: 10/11/2017 12:53 PM Note Text: Episode Visit Count: 3 Therapist That Will Oversee The Plan Of Care: Kareen Frias Start of Care Date: 09/25/17 Onset Date: 06/25/17 Patient Identified by Name and Date of : Yes No Data Recorded REHABILITATION AND SPORTS THERAPY PHYSICAL THERAPY DISCONTINUANCE OF CARE PLAN OF CARE UPDATE: Assessment: Karma Rojo is discontinued from Physical Therapy services due to goal achievement and maximal benefit.. Patient was seen for 3 visits from Start of Care Date: 09/25/17 to 10/11/2017 and treatment included: Therapeutic exercise, Manual therapy and Modalities: Ultrasound. Pt noted to have increased DF ROM and gastroc flexibility and decreased pain. Pt is confident to proceed with home program Goals for Episode of Care: created on 09/25/17 through 10/25/17 [place] in home exercise program./ achieved Patient will decrease pain rating by 2 points to meet minimal clinical important difference for numeric pain rating scale./ achieved Patient will increase flexibility of gastroc and soleus to decrease pain with walking / achieved Perform walking without pain./ achieved SUBJECTIVE: Pt notes that she is doing alot better. Having good days and a couple of bad days. states that yesterday she was on her feet in the garage which caused pain. . Pain Score: 2/10 Pain Location: Heel - Left Description: Aching;Sharp Frequency: Intermittent OBJECTIVE MEASURES WITH LEVEL OF FUNCTION: Ankle Observations L Ankle Palpation Tenderness: No tenderness noted Gait Gait Observation: no deviation LE AROM L Ankle Dorsiflexion: 25 Degrees L Ankle Plantar Flexion: 45 Degrees L Ankle Inversion: 28 L Ankle Eversion: 23 TREATMENT: Therapeutic Exercise: 1: wall gastroc stretch 30 sec x3 2: wall soleus stretch 30 sec x3 4: BAPS PWB left ball 2 circles cw and ccw 2x10. 5: BOSU forward step ups leading with right and left LE 2x 10. Skilled Intervention: Patient was educated in proper exercise technique and purpose for exercises. Skilled judgment was provided in selection of appropriate interventions. Correct performance of therapeutic exercises was facilitated with verbal and visual cuing. Manual Therapy: Soft Tissue Mobilization: IASTM with scanner and tongue depressor to calf and plantar fascia x8 minutes. Skilled Intervention: Manual skills to improve joint mobility, ROM, and decrease pain. Utilized anatomy knowledge of the therapist, and assessment of patient's response to intervention. Modalities: Ultrasound Body Region Treated - Ultrasound: plantar fascia left Patient Position: prone Mode: 50% w/cm2: 1.3 MHZ: 1 Minutes: 10 See flowsheet for details regarding treatment. Skilled Intervention: Proper administration and selection of modality based on clinical presentation, deficits, and needs. Patient response monitored throughout treatment. Billing: [facility]: Therapeutic Exercise (61389): 1:1 time: 22 minutes (1 unit: 8-22 mins) Manual Therapy (34057): 1:1 time: 8 minutes (1 unit: 8-22 mins) Modalities Ultrasound (20234) 1:1 time: 10 minutes1 unit: 8-22 mins Total time: 40 minutes Kareen Frias PT CNTHERAPY Observed: 10/11/2017 Status: COMPLETED Source: [place] 9:00 AM [facility] REPOSITORY OT/PT/Speech Visit (PTWS) KARMA ROJO ([id number]) 1975 F Date Time Provider Department 10/11/17 9:00 AM KAREEN FRIAS (PT) PTWS Date Time Provider Department Center 10/11/2017 9:00 AM [id number], LISA (PT) PTWS [facility] Reason for Visit: PT Discharge [[id number]] Primary Visit Diagnosis:Plantar fasciitis, left [M72.2] Allergies As of Date: 10/11/2017 (No Known Allergies) Date Reviewed: 10/10/2017 Reviewed by: Krysten Dunne RN - Fully Assessed Prescriptions as of 10/11/2017 Sig: BUSPIRONE 15 MG TABLET Take 1 tablet by mouth once d* CALCIUM ORAL Take 1,500 mg by mouth three * CHOLECALCIFEROL (VITAMIN D3) * Take 5,000 Units by mouth onc* METOPROLOL TARTRATE 25 MG TAB* Take 25 mg by mouth once josé miguel* Progress Notes: Kareen Frias PT 10/11/2017 12:53 PM Signed Episode Visit Count: 3 Therapist That Will Oversee The Plan Of Care: Kareen Frias Start of Care Date: 09/25/17 Onset Date: 06/25/17 Patient Identified by Name and Date of : Yes No Data Recorded REHABILITATION AND SPORTS THERAPY PHYSICAL THERAPY DISCONTINUANCE OF CARE PLAN OF CARE UPDATE: Assessment: Karma Rojo is discontinued from Physical Therapy services due to goal achievement and maximal benefit.. Patient was seen for 3 visits from Start of Care Date: 09/25/17 to 10/11/2017 and treatment included: Therapeutic exercise, Manual therapy and Modalities: Ultrasound. Pt noted to have increased DF ROM and gastroc flexibility and decreased pain. Pt is confident to proceed with home program Goals for Episode of Care: created on 09/25/17 through 10/25/17 [place] in home exercise program./ achieved Patient will decrease pain rating by 2 points to meet minimal clinical important difference for numeric pain rating scale./ achieved Patient will increase flexibility of gastroc and soleus to decrease pain with walking / achieved Perform walking without pain./ achieved SUBJECTIVE: Pt notes that she is doing alot better. Having good days and a couple of bad days. states that yesterday she was on her feet in the garage which caused pain. . Pain Score: 2/10 Pain Location: Heel - Left Description: Aching;Sharp Frequency: Intermittent OBJECTIVE MEASURES WITH LEVEL OF FUNCTION: Ankle Observations L Ankle Palpation Tenderness: No tenderness noted Gait Gait Observation: no deviation LE AROM L Ankle Dorsiflexion: 25 Degrees L Ankle Plantar Flexion: 45 Degrees L Ankle Inversion: 28 L Ankle Eversion: 23 TREATMENT: Therapeutic Exercise: 1: wall gastroc stretch 30 sec x3 2: wall soleus stretch 30 sec x3 4: BAPS PWB left ball 2 circles cw and ccw 2x10. 5: BOSU forward step ups leading with right and left LE 2x 10. Skilled Intervention: Patient was educated in proper exercise technique and purpose for exercises. Skilled judgment was provided in selection of appropriate interventions. Correct performance of therapeutic exercises was facilitated with verbal and visual cuing. Manual Therapy: Soft Tissue Mobilization: IASTM with scanner and tongue depressor to calf and plantar fascia x8 minutes. Skilled Intervention: Manual skills to improve joint mobility, ROM, and decrease pain. Utilized anatomy knowledge of the therapist, and assessment of patient's response to intervention. Modalities: Ultrasound Body Region Treated - Ultrasound: plantar fascia left Patient Position: prone Mode: 50% w/cm2: 1.3 MHZ: 1 Minutes: 10 See flowsheet for details regarding treatment. Skilled Intervention: Proper administration and selection of modality based on clinical presentation, deficits, and needs. Patient response monitored throughout treatment. Billing: [facility]: Therapeutic Exercise ([id number]): 1:1 time: 22 minutes (1 unit: 8-22 mins) Manual Therapy ([id number]): 1:1 time: 8 minutes (1 unit: 8-22 mins) Modalities Ultrasound (00170) 1:1 time: 10 minutes1 unit: 8-22 mins Total time: 40 minutes Kareen Frias, PT PROGRESS Observed: 10/10/2017 Status: COMPLETED Source: [place] 10:17 AM [facility] [place] REPOSITORY HNO ID: [id number] Author: Anne Fonseca Service: (none) Author Type: Physician Type: Progress Notes Filed: 10/10/2017 10:32 AM Note Text: ? Anne Fonseca DPM Department of Podiatry [address] [facility] [address] Dept: [phone] Dept 10/10/2017 Follow Up Podiatric Office Visit: HPI: Karma Rojo is a 41 year old female. Patient presents for follow up for plantar fasciitis, L. Patient complains of pain but states it is much better and pain is very minimal. Pain is rated at 1/10, and described as sharp. Occurs only with activity. Interventions include: physical therapy, stretching, inserts and cortisone injection. She states the injection did not help but Physical Therapy and stretching have helped tremendously. She is back to her normal level of activity. Physical Exam: Constitutional: Pt is a well developed 41 year old female who is alert, oriented and cooperative Eyes: Following during examination. No redness or drainage. Respiratory: RR normal and nonlabored. Even breathing. No evidence of distress or shortness of breath. Psychology: Patient is engaged during conversation. Normal affect and mood. Does not appear depressed or anxious during encounter. Vascular: Dorsalis pedis and posterior tibial pulses palpable b/l Capillary Fill time < 5 seconds to digits 1-5 b/l Skin temperature warm to warm proximal to distal b/l Hair growth present to digits Neurological: intact light touch/epicritic sensation - tinel b/l Dermatological: Skin appears well hydrated and supple. good color, texture, turgor. Callosities absemt.Open lesions absent. Wound: Not present. Musculoskeletal/Orthopaedic: Patient has pain to palpation of medial L heel Negative tenaus Foot type is structurally AJ ROM is full with knee extended and flexed 1st MPJ is full when loaded and no pain or crepitus are noted with ROM. MTJ, STJ are full and free of pain and crepitus. +5/5 muscle strength dorsiflexion, plantarflexion, inversion, eversion b/l ASSESSMENT: (M72.2) Plantar fasciitis of left foot (primary encounter diagnosis) Comment: Pain has improved to almost nonexistant. Pain will continue to get better with use of supportive shoes, continue stretching and inserts. Plan: 1. History and physical examination performed. 2. Wear supportive shoes 3. Continue Power Step inserts 4. Ice, NSAIDs and stretching as needed 5. Follow up as needed The documentation for this note was completed by Krysten Dunne RN acting as scribe for Anne Fonseca DPM. October 10, 2017 10:17 AM. I agree with the Chief Complaint, ROS, and Past Histories independently gathered by the clinical technical support associate and the remaining scribed note accurately describes my personal service to the patient. Anne Fonseca DPM CNOV Observed: 10/10/2017 Status: COMPLETED Source: [place] 9:55 AM [facility] REPOSITORY Office Visit (PODIWS) KARMA ROJO ([id number]) 1975 F Date Time Provider Department 10/10/17 9:55 AM ANNE FONSECA PODTIMMYS During your visit today, we recorded the following information about you: Anne Fonseca DPM 10/10/2017 10:32 AM Signed ? Anne Fonseca DPM Department of Podiatry [address] [facility] [address] Dept: [phone] Dept 10/10/2017 Follow Up Podiatric Office Visit: HPI: Karma Rojo is a 41 year old female. Patient presents for follow up for plantar fasciitis, L. Patient complains of pain but states it is much better and pain is very minimal. Pain is rated at 1/10, and described as sharp. Occurs only with activity. Interventions include: physical therapy, stretching, inserts and cortisone injection. She states the injection did not help but Physical Therapy and stretching have helped tremendously. She is back to her normal level of activity. Physical Exam: Constitutional: Pt is a well developed 41 year old female who is alert, oriented and cooperative Eyes: Following during examination. No redness or drainage. Respiratory: RR normal and nonlabored. Even breathing. No evidence of distress or shortness of breath. Psychology: Patient is engaged during conversation. Normal affect and mood. Does not appear depressed or anxious during encounter. Vascular: Dorsalis pedis and posterior tibial pulses palpable b/l Capillary Fill time < 5 seconds to digits 1-5 b/l Skin temperature warm to warm proximal to distal b/l Hair growth present to digits Neurological: intact light touch/epicritic sensation - tinel b/l Dermatological: Skin appears well hydrated and supple. good color, texture, turgor. Callosities absemt.Open lesions absent. Wound: Not present. Musculoskeletal/Orthopaedic: Patient has pain to palpation of medial L heel Negative tenaus Foot type is structurally AJ ROM is full with knee extended and flexed 1st MPJ is full when loaded and no pain or crepitus are noted with ROM. MTJ, STJ are full and free of pain and crepitus. +5/5 muscle strength dorsiflexion, plantarflexion, inversion, eversion b/l ASSESSMENT: (M72.2) Plantar fasciitis of left foot (primary encounter diagnosis) Comment: Pain has improved to almost nonexistant. Pain will continue to get better with use of supportive shoes, continue stretching and inserts. Plan: 1. History and physical examination performed. 2. Wear supportive shoes 3. Continue Power Step inserts 4. Ice, NSAIDs and stretching as needed 5. Follow up as needed The documentation for this note was completed by Krysten Dunne RN acting as scribe for Anne Fonseca DPM. October 10, 2017 10:17 AM. I agree with the Chief Complaint, ROS, and Past Histories independently gathered by the clinical technical support associate and the remaining scribed note accurately describes my personal service to the patient. FILIBERTO Conway RN 10/10/2017 10:28 AM Addendum Wear supportive shoes Continue Power Step inserts Ice, NSAIDs and stretching as needed Follow up as needed, call our office with any issues Referring Provider: ANNE FONSECA [[id number]] Allergies As of Date: 10/10/2017 (No Known Allergies) Date Reviewed: 10/10/2017 Reviewed by: Krysten Dunne RN - Fully Assessed Reason for Visit: Recheck [92] Primary Visit Diagnosis:Plantar fasciitis of left foot [M72.2] Prescriptions as of 10/10/2017 Sig: BUSPIRONE 15 MG TABLET Take 1 tablet by mouth once d* CALCIUM ORAL Take 1,500 mg by mouth three * CHOLECALCIFEROL (VITAMIN D3) * Take 5,000 Units by mouth onc* METOPROLOL TARTRATE 25 MG TAB* Take 25 mg by mouth once josé miguel* Problem List As Of Date 10/10/2017 Noted Resolved Chest pain of pericarditis [I31.9] INVALID FOR* More... Primary hyperparathyroidism (HCC) [E21.0] INVALID FOR* Atrial fibrillation (HCC) [I48.91] INVALID FOR* Nontoxic multinodular goiter [E04.2] INVALID FOR* Plantar fasciitis, left [M72.2] INVALID FOR* Other instructions from your clinician: Wear supportive shoes Continue Power Step inserts Ice, NSAIDs and stretching as needed Follow up as needed, call our office with any issues Disposition: Return if symptoms worsen or fail to improve. Follow-up and Disposition History Recorded Encounter Status:Closed by ANNE FONSECA DPM on 10/10/17 PROGRESS Observed: 10/04/2017 Status: COMPLETED Source: [place] 1:45 PM [facility] RE[facility] O ID: [id number] Author: Kareen Frias Service: (none) Author Type: Physical Therapist Type: Progress Notes Filed: 10/04/2017 3:20 PM Note Text: Episode Visit Count: 2 Therapist That Will Oversee The Plan Of Care: Kareen Frias Start of Care Date: 09/25/17 Onset Date: 06/25/17 Patient Identified by Name and Date of : Yes REHABILITATION AND SPORTS THERAPY PHYSICAL THERAPY TREATMENT NOTE ASSESSMENT: Karma Rojo demonstrated improvements in reduction of pain with doing stretching exercise. She had minimal pain at start of treatment and no pain at end of treatment. Advanced stretching and strengthening exercise today which were well tolerated with no increase in pain. Patient noted relief with US and IASTM. The patient will continue to benefit from continued skilled physical therapy for progression of exercise on uneven surfaces, BAPS and IASTM and US as needed for pain control. PLAN FOR NEXT VISIT: Monitor response to newly added exercise and continue with exercise, US and IASTM. Advised patient to contact her insurance as she is unsure of her coverage at current time. Ask patient if she made the call. SUBJECTIVE: Patient reports obtaining relief of pain following last therapy. She reports with stretching pain is now intermittent left heel. Patient reports she is unsure of her insurance coverage and would like to continue therapy 1x/week at current time. Pain Score: 1/10 Pain Location: Heel - Left Description: Sharp (at times) Frequency: Intermittent Post Treatment Pain Score: 0/10 OBJECTIVE MEASURES WITH LEVEL OF FUNCTION: Gait Assessment Gait Observation: Normal gait on level surface today. TREATMENT: Therapeutic Exercise: 1: wall gastroc stretch 30 sec x2 2: wall soleus stretch 30 sec x2 3: Reviewed home AROM ankle exercises and discussed additon of ABC's. 4: BAPS PWB left ball 2 A/P, lateral and circles cw and ccw 2x10. 5: BOSU forward step ups leading with right and left LE x 10. 6: BOSU lateral step up and over x 10 each direction. Skilled Intervention: Patient was educated in proper exercise technique and purpose for exercises. Reviewed and educated patient on additions/changes for home exercise program and discussed addition of Ankle ABC exercise to be added to active ankle movements. Skilled judgment was provided in selection of appropriate interventions. Correct performance of therapeutic exercises was facilitated with verbal and visual cuing. Manual Therapy: Soft Tissue Mobilization: IASTM with scanner and tongue depressor to calf and plantar fascia x10 minutes. Skilled Intervention: Manual skills to improve joint mobility, ROM, and decrease pain. Utilized anatomy knowledge of the therapist, and assessment of patient's response to intervention. Modalities: Ultrasound Body Region Treated - Ultrasound: plantar fascia left Patient Position: prone Mode: 50% w/cm2: 1.3 MHZ: 1 Minutes: 8 See flowsheet for details regarding treatment. Skilled Intervention: Proper administration and selection of modality based on clinical presentation, deficits, and needs. Patient response monitored throughout treatment. Billing: [facility]: Therapeutic Exercise ([id number]): 1:1 time: 22 minutes (1 units: 8-22 mins) Manual Therapy (79711): 1:1 time: 10 minutes (1 unit: 8-22 mins) Modalities Ultrasound ([id number]) 1:1 time: 8 minutes1 unit: 8- 22 mins Total time: 40 minutes Carito Valenzuela PTClement/Kareen Frias PT CNTHERAPY Observed: 10/03/2017 Status: COMPLETED Source: [place] 3:30 PM [facility] REPOSITORY OT/PT/Speech Visit (PTWS) KARMA ROJO ([id number]) 1975 F Date Time Provider Department 10/03/17 3:30 PM CARITO VALENZUELA (KYLE) PTWS Date Time Provider Department Center 10/03/2017 3:30 PM [id number], NANCY (LENS GRINDER) PTWS [facility] Reason for Visit: Physical Therapy [503] Primary Visit Diagnosis:Plantar fasciitis, left [M72.2] Allergies As of Date: 10/03/2017 (No Known Allergies) Date Reviewed: 08/19/2017 Reviewed by: Joselin Sigala - Fully Assessed Prescriptions as of 10/03/2017 Sig: BUSPIRONE 15 MG TABLET Take 1 tablet by mouth once d* CALCIUM ORAL Take 1,500 mg by mouth three * CHOLECALCIFEROL (VITAMIN D3) * Take 5,000 Units by mouth onc* METOPROLOL TARTRATE 25 MG TAB* Take 25 mg by mouth once josé miguel* Progress Notes: Kareen Frias PT 10/04/2017 3:20 PM Signed Episode Visit Count: 2 Therapist That Will Oversee The Plan Of Care: Kareen Frias Start of Care Date: 09/25/17 Onset Date: 06/25/17 Patient Identified by Name and Date of : Yes REHABILITATION AND SPORTS THERAPY PHYSICAL THERAPY TREATMENT NOTE ASSESSMENT: Karma Rojo demonstrated improvements in reduction of pain with doing stretching exercise. She had minimal pain at start of treatment and no pain at end of treatment. Advanced stretching and strengthening exercise today which were well tolerated with no increase in pain. Patient noted relief with US and IASTM. The patient will continue to benefit from continued skilled physical therapy for progression of exercise on uneven surfaces, BAPS and IASTM and US as needed for pain control. PLAN FOR NEXT VISIT: Monitor response to newly added exercise and continue with exercise, US and IASTM. Advised patient to contact her insurance as she is unsure of her coverage at current time. Ask patient if she made the call. SUBJECTIVE: Patient reports obtaining relief of pain following last therapy. She reports with stretching pain is now intermittent left heel. Patient reports she is unsure of her insurance coverage and would like to continue therapy 1x/week at current time. Pain Score: 1/10 Pain Location: Heel - Left Description: Sharp (at times) Frequency: Intermittent Post Treatment Pain Score: 0/10 OBJECTIVE MEASURES WITH LEVEL OF FUNCTION: Gait Assessment Gait Observation: Normal gait on level surface today. TREATMENT: Therapeutic Exercise: 1: wall gastroc stretch 30 sec x2 2: wall soleus stretch 30 sec x2 3: Reviewed home AROM ankle exercises and discussed additon of ABC's. 4: BAPS PWB left ball 2 A/P, lateral and circles cw and ccw 2x10. 5: BOSU forward step ups leading with right and left LE x 10. 6: BOSU lateral step up and over x 10 each direction. Skilled Intervention: Patient was educated in proper exercise technique and purpose for exercises. Reviewed and educated patient on additions/changes for home exercise program and discussed addition of Ankle ABC exercise to be added to active ankle movements. Skilled judgment was provided in selection of appropriate interventions. Correct performance of therapeutic exercises was facilitated with verbal and visual cuing. Manual Therapy: Soft Tissue Mobilization: IASTM with scanner and tongue depressor to calf and plantar fascia x10 minutes. Skilled Intervention: Manual skills to improve joint mobility, ROM, and decrease pain. Utilized anatomy knowledge of the therapist, and assessment of patient's response to intervention. Modalities: Ultrasound Body Region Treated - Ultrasound: plantar fascia left Patient Position: prone Mode: 50% w/cm2: 1.3 MHZ: 1 Minutes: 8 See flowsheet for details regarding treatment. Skilled Intervention: Proper administration and selection of modality based on clinical presentation, deficits, and needs. Patient response monitored throughout treatment. Billing: [facility]: Therapeutic Exercise ([id number]): 1:1 time: 22 minutes (1 units: 8-22 mins) Manual Therapy (97061): 1:1 time: 10 minutes (1 unit: 8-22 mins) Modalities Ultrasound ([id number]) 1:1 time: 8 minutes1 unit: 8- 22 mins Total time: 40 minutes VIRGINIA Garcias/Kareen Frias PT Previous Version Follow-up and Disposition History Recorded PROGRESS Observed: 09/25/2017 Status: COMPLETED Source: [place] 3:15 PM [facility] REPOSITORY HNO ID: [id number] Author: Kareen Frias Service: (none) Author Type: Physical Therapist Type: Progress Notes Filed: 09/25/2017 3:20 PM Note Text: Episode Visit Count: 1 Therapist That Will Oversee The Plan Of Care: Kareen Frias Start of Care Date: 09/25/17 Onset Date: 06/25/17 Patient Identified by Name and Date of : Yes REHABILITATION AND SPORTS THERAPY PHYSICAL THERAPY EVALUATION PLAN OF CARE: Assessment: Karma Rojo presents with the diagnosis of plantar fascitis. Pt notes no relief with injection she received. Has been doing stretching but needed some instruction for improved form. Tightness with IASTM in gastroc noted. . She presents with impairments of pain and limited tolerance to walking. She may benefit from skilled therapy services to improve pain and functional status. Prognosis: Good Good due to: current objective clinical presentation Goals for Episode of Care: created on 09/25/17 through 10/25/17 [place] in home exercise program. Patient will decrease pain rating by 2 points to meet minimal clinical important difference for numeric pain rating scale. Patient will increase flexibility of gastroc and soleus to decrease pain with walking Perform walking without pain. Planned Interventions, Frequency, and Duration: Current Frequency: 2x/week Duration: 4 weeks Total Number of Visits Planned: 8 Patient to be see for Planned Treatment Interventions: Therapeutic exercise;Manual therapy;Patient/Family/Caregiver Education;Modalities Modalities: Ultrasound PLAN FOR NEXT VISIT: Will add ex bike. IASTM / ultrasound stretching Patient demonstrates good understanding of plan of care and treatment. The above goals and plan of care were discussed and agreed upon by patient/family. SUBJECTIVE: Karma Rojo is a 41 year old female seen today for Pain in plantar aspect of heel. 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 Environment Patient Lives With: Family Pain Score: 6/10 ( 6/10 worst 2/10 current) Pain Location: Heel - Left Description: Sharp;Aching Frequency: Intermittent Post Treatment Pain Score: No Change Pain Location: Heel - Left Post Treatment Pain Description: Aching OBJECTIVE MEASURES WITH LEVEL OF FUNCTION: Ankle Observations L Ankle Palpation Tenderness: Plantar fascia ( medial and lateral plantar calcaneous) Gait Assessment Weight Bearing Status: FWB Gait: Independent Gait Deviations: ( none) Brace/Orthotics: orthotics present LE AROM R Ankle Dorsiflexion: 15 Degrees R Ankle Plantar Flexion: 45 Degrees R Ankle Inversion: 35 R Ankle Eversion: 20 L Ankle Dorsiflexion: 13 Degrees L Ankle Plantar Flexion: 45 Degrees L Ankle Inversion: 35 L Ankle Eversion: 25 LE Strength R Ankle Dorsiflexion: 5/5 R Ankle Plantar Flexion: 5/5 R Ankle Inversion: 5/5 R Ankle Eversion: 5/5 L Ankle Dorsiflexion: 5/5 L Ankle Plantar Flexion: 5/5 L Ankle Inversion: 5/5 L Ankle Eversion: 5/5 Education: Education Learning Preferences: Demonstration;Explanation;Performance;Printed Materials Barriers: None Learning/educational needs: Home exercise program;Plan of Care Education Provided: Yes, see treatment interventions for education provided Education Provided To: Patient Education Mode/Type: Demonstration;Explanation/Discussion;Literature/Printed Materials;Performance Response to Education/Teach Back: States/Identifies;Return Demonstration TREATMENT: Therapeutic Exercise: 1: wall gastroc stretch 30 sec x3 2: wall soleus stretch 30 sec x3 3: AROM while sitting to avoid tightness Skilled Intervention: Patient was educated in proper exercise technique and purpose for exercises. Skilled judgment was provided in selection of appropriate interventions. Provided verbal instruction for home exercise program to facilitate proper performance and compliance. Correct performance of therapeutic exercises was facilitated with verbal and visual cuing. Patient education as noted. Manual Therapy: Soft Tissue Mobilization: IASTM with scanner and tongue depressor to calf and plantar fascia x8 min. Skilled Intervention: Manual skills to improve joint mobility, ROM, and decrease pain. Utilized anatomy knowledge of the therapist, and assessment of patient's response to intervention. Modalities: Ultrasound Body Region Treated - Ultrasound: plantar fascia left Patient Position: prone Mode: 50% w/cm2: 1.3 MHZ: 1 Minutes: 8 See flowsheet for details regarding treatment. Skilled Intervention: Proper administration and selection of modality based on clinical presentation, deficits, and needs. Patient response monitored throughout treatment. Assigned Home Exercise Program: 1: as noted above Billing: [facility]: Evaluation - Low Complexity ([id number]) Manual Therapy ([id number]): 1:1 time: 8 minutes (1 unit: 8-22 mins) Modalities Ultrasound ([id number]) 1:1 time: 8 minutesno charge Total time: 40 minutes Kareen Frias PT CNTHERAPY Observed: 09/25/2017 Status: COMPLETED Source: [place] 2:00 PM [facility] REPOSITORY OT/PT/Speech Visit (PTWS) KARMA ROJO ([id number]) 1975 F Date Time Provider Department 09/25/17 2:00 PM KAREEN FRIASPT) PTJENNY Date Time Provider Department Center 09/25/2017 2:00 PM [id number] FRIASPT) PTJENNY [facility] Reason for Visit: PT Eval [747] Patient Education [91] Visit Diagnosis:Plantar fasciitis, left [M72.2] Allergies As of Date: 09/25/2017 (No Known Allergies) Date Reviewed: 08/19/2017 Reviewed by: Joselin Sigala - Fully Assessed Prescriptions as of 09/25/2017 Sig: BUSPIRONE 15 MG TABLET Take 1 tablet by mouth once d* CALCIUM ORAL Take 1,500 mg by mouth three * CHOLECALCIFEROL (VITAMIN D3) * Take 5,000 Units by mouth onc* METOPROLOL TARTRATE 25 MG TAB* Take 25 mg by mouth once josé miguel* Progress Notes: Kareen Frias, PT 09/25/2017 3:20 PM Signed Episode Visit Count: 1 Therapist That Will Oversee The Plan Of Care: Kareen Frias Start of Care Date: 09/25/17 Onset Date: 06/25/17 Patient Identified by Name and Date of : Yes REHABILITATION AND SPORTS THERAPY PHYSICAL THERAPY EVALUATION PLAN OF CARE: Assessment: Karma Rojo presents with the diagnosis of plantar fascitis. Pt notes no relief with injection she received. Has been doing stretching but needed some instruction for improved form. Tightness with IASTM in gastroc noted. . She presents with impairments of pain and limited tolerance to walking. She may benefit from skilled therapy services to improve pain and functional status. Prognosis: Good Good due to: current objective clinical presentation Goals for Episode of Care: created on 09/25/17 through 10/25/17 [place] in home exercise program. Patient will decrease pain rating by 2 points to meet minimal clinical important difference for numeric pain rating scale. Patient will increase flexibility of gastroc and soleus to decrease pain with walking Perform walking without pain. Planned Interventions, Frequency, and Duration: Current Frequency: 2x/week Duration: 4 weeks Total Number of Visits Planned: 8 Patient to be see for Planned Treatment Interventions: Therapeutic exercise;Manual therapy;Patient/Family/Caregiver Education;Modalities Modalities: Ultrasound PLAN FOR NEXT VISIT: Will add ex bike. IASTM / ultrasound stretching Patient demonstrates good understanding of plan of care and treatment. The above goals and plan of care were discussed and agreed upon by patient/family. SUBJECTIVE: Karma Rojo is a 41 year old female seen today for Pain in plantar aspect of heel. 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 Environment Patient Lives With: Family Pain Score: 6/10 ( 6/10 worst 2/10 current) Pain Location: Heel - Left Description: Sharp;Aching Frequency: Intermittent Post Treatment Pain Score: No Change Pain Location: Heel - Left Post Treatment Pain Description: Aching OBJECTIVE MEASURES WITH LEVEL OF FUNCTION: Ankle Observations L Ankle Palpation Tenderness: Plantar fascia ( medial and lateral plantar calcaneous) Gait Assessment Weight Bearing Status: FWB Gait: Independent Gait Deviations: ( none) Brace/Orthotics: orthotics present LE AROM R Ankle Dorsiflexion: 15 Degrees R Ankle Plantar Flexion: 45 Degrees R Ankle Inversion: 35 R Ankle Eversion: 20 L Ankle Dorsiflexion: 13 Degrees L Ankle Plantar Flexion: 45 Degrees L Ankle Inversion: 35 L Ankle Eversion: 25 LE Strength R Ankle Dorsiflexion: 5/5 R Ankle Plantar Flexion: 5/5 R Ankle Inversion: 5/5 R Ankle Eversion: 5/5 L Ankle Dorsiflexion: 5/5 L Ankle Plantar Flexion: 5/5 L Ankle Inversion: 5/5 L Ankle Eversion: 5/5 Education: Education Learning Preferences: Demonstration;Explanation;Performance;Printed Materials Barriers: None Learning/educational needs: Home exercise program;Plan of Care Education Provided: Yes, see treatment interventions for education provided Education Provided To: Patient Education Mode/Type: Demonstration;Explanation/Discussion;Literature/Printed Materials;Performance Response to Education/Teach Back: States/Identifies;Return Demonstration TREATMENT: Therapeutic Exercise: 1: wall gastroc stretch 30 sec x3 2: wall soleus stretch 30 sec x3 3: AROM while sitting to avoid tightness Skilled Intervention: Patient was educated in proper exercise technique and purpose for exercises. Skilled judgment was provided in selection of appropriate interventions. Provided verbal instruction for home exercise program to facilitate proper performance and compliance. Correct performance of therapeutic exercises was facilitated with verbal and visual cuing. Patient education as noted. Manual Therapy: Soft Tissue Mobilization: IASTM with scanner and tongue depressor to calf and plantar fascia x8 min. Skilled Intervention: Manual skills to improve joint mobility, ROM, and decrease pain. Utilized anatomy knowledge of the therapist, and assessment of patient's response to intervention. Modalities: Ultrasound Body Region Treated - Ultrasound: plantar fascia left Patient Position: prone Mode: 50% w/cm2: 1.3 MHZ: 1 Minutes: 8 See flowsheet for details regarding treatment. Skilled Intervention: Proper administration and selection of modality based on clinical presentation, deficits, and needs. Patient response monitored throughout treatment. Assigned Home Exercise Program: 1: as noted above Billing: [facility]: Evaluation - Low Complexity ([id number]) Manual Therapy ([id number]): 1:1 time: 8 minutes (1 unit: 8-22 mins) Modalities Ultrasound (95926) 1:1 time: 8 minutesno charge Total time: 40 minutes Kareen Frias PT PROGRESS Observed: 09/08/2017 Status: COMPLETED Source: [place] 2:25 PM [facility] REPOSITORY HNO ID: [id number] Author: Anne Fonseca Service: (none) Author Type: Physician Type: Progress Notes Filed: 09/08/2017 2:39 PM Note Text: ? Anne Fonseca DPM Department of Podiatry [address] [facility] [address] Dept: [phone] Dept 09/08/2017 Follow Up Podiatric Office Visit: HPI: Karma Rojo is a 41 year old female. Patient presents for follow up for L foot pain. Patient reports constant 2/10 ache to L heel that is increased to around a 7/10 stabbing pain first thing in the morning and after prolonged sitting. Pain returned after spring break of this year and after treating L hip problems. Patient has used ice, NSAIDS, stretching,night splint, and custom inserts with relief in the past. Would like to have injection today. Physical Exam: Constitutional: Pt is a well developed 41 year old female who is alert, oriented and cooperative Eyes: Following during examination. No redness or drainage. Respiratory: RR normal and nonlabored. Even breathing. No evidence of distress or shortness of breath. Psychology: Patient is engaged during conversation. Normal affect and mood. Does not appear depressed or anxious during encounter. Vascular: Dorsalis pedis and posterior tibial pulses palpable, L Capillary Fill time < 5 seconds to digits 1-5 b/l Skin temperature warm to warm proximal to distal b/l Hair growth present to digits Neurological: No changes from last visit Dermatological: Skin appears well hydrated and supple. good color, texture, turgor. Callosities absent. Musculoskeletal/Orthopaedic: Patient has pain to palpation of L medial calcaneal tubercle AJ ROM is full with knee extended and flexed 1st MPJ is full when loaded and no pain or crepitus are noted with ROM. MTJ, STJ are full and free of pain and crepitus. +5/5 muscle strength dorsiflexion, plantarflexion, inversion, eversion b/l ASSESSMENT: (M72.2) Plantar fasciitis of left foot (primary encounter diagnosis) Comment: Patient examined and informed of findings. Discussed continuing current regimen and ordering physical therapy. Will proceed with steroid injection today. Discussed the risks, benefits, alternatives, potential complications, and personnel to be present. The patient elects to proceed today with an injection to L heel. The patient was properly identified, procedure site marked, and timeout performed. Under aseptic technique, an injection consisting of 1/2 cc of Kenalog 40, 1/2 cc of Dexamethasone, and 1/2 cc of 0.5% Marcaine was injected into L heel. Patient tolerated well. Plan: 1. Continue current treatment regimen to include home stretching, icing, nsaids 2. Consult Physical Therapy RTC 1 month for injection follow up The documentation for this note was completed by Anjelica Clayton Ma acting as scribe for Anne Fonseca DPM. September 08, 2017 2:25 PM. I agree with the Chief Complaint, ROS, and Past Histories independently gathered by the clinical technical support associate and the remaining scribed note accurately describes my personal service to the patient. Anne Fonseca DPM CNOV Observed: 09/08/2017 Status: COMPLETED Source: [place] 2:10 PM [facility] REPOSITORY Office Visit (PODIWS) KARMA ROJO ([id number]) 1975 F Date Time Provider Department 09/08/17 2:10 PM ANNE FONSECA During your visit today, we recorded the following information about you: Anne Fonseca DPM 09/08/2017 2:39 PM Signed ? Anne Fonseca DPM Department of Podiatry [address] [facility] [address] Dept: [phone] Dept 09/08/2017 Follow Up Podiatric Office Visit: HPI: Karma Rojo is a 41 year old female. Patient presents for follow up for L foot pain. Patient reports constant 2/10 ache to L heel that is increased to around a 7/10 stabbing pain first thing in the morning and after prolonged sitting. Pain returned after spring break of this year and after treating L hip problems. Patient has used ice, NSAIDS, stretching,night splint, and custom inserts with relief in the past. Would like to have injection today. Physical Exam: Constitutional: Pt is a well developed 41 year old female who is alert, oriented and cooperative Eyes: Following during examination. No redness or drainage. Respiratory: RR normal and nonlabored. Even breathing. No evidence of distress or shortness of breath. Psychology: Patient is engaged during conversation. Normal affect and mood. Does not appear depressed or anxious during encounter. Vascular: Dorsalis pedis and posterior tibial pulses palpable, L Capillary Fill time < 5 seconds to digits 1-5 b/l Skin temperature warm to warm proximal to distal b/l Hair growth present to digits Neurological: No changes from last visit Dermatological: Skin appears well hydrated and supple. good color, texture, turgor. Callosities absent. Musculoskeletal/Orthopaedic: Patient has pain to palpation of L medial calcaneal tubercle AJ ROM is full with knee extended and flexed 1st MPJ is full when loaded and no pain or crepitus are noted with ROM. MTJ, STJ are full and free of pain and crepitus. +5/5 muscle strength dorsiflexion, plantarflexion, inversion, eversion b/l ASSESSMENT: (M72.2) Plantar fasciitis of left foot (primary encounter diagnosis) Comment: Patient examined and informed of findings. Discussed continuing current regimen and ordering physical therapy. Will proceed with steroid injection today. Discussed the risks, benefits, alternatives, potential complications, and personnel to be present. The patient elects to proceed today with an injection to L heel. The patient was properly identified, procedure site marked, and timeout performed. Under aseptic technique, an injection consisting of 1/2 cc of Kenalog 40, 1/2 cc of Dexamethasone, and 1/2 cc of 0.5% Marcaine was injected into L heel. Patient tolerated well. Plan: 1. Continue current treatment regimen to include home stretching, icing, nsaids 2. Consult Physical Therapy RTC 1 month for injection follow up The documentation for this note was completed by Anjelica Clayton Ma acting as scribe for Anne Fonseca DPM. September 08, 2017 2:25 PM. I agree with the Chief Complaint, ROS, and Past Histories independently gathered by the clinical technical support associate and the remaining scribed note accurately describes my personal service to the patient. FILIBERTO Conway Ma 09/08/2017 2:34 PM Signed STEROID INJECTION You have been injected with a corticosteroid and local anesthesia today. This should provide relief of symptoms for the next 8 hours or so. After this time frame you will likely experience an increase in pain symptoms again until the effects of the steroid start to work, which should occur within 24-48 hours. Approximately 2% of individuals may experience a post injection flare or severe worsening of symptoms following injection. If this occurs ice the area and take Tylenol or Aleve for pain. In some very rare instances skin depigmentation and joint infection may occur. Joint infection is a concern if you experience any of the following: ? pain for more than 48 hours after the injection ? pain develops more than 2 days after the injection ? the area becomes red, hot or swollen ? you develop a fever following the injection Corticosteroid injections can also rarely interfere with the healing process and weaken tendons, sometimes causing tendons to rupture. Repeated injections of steroids can also damage joint cartilage. For these reasons, there are limits to how many times and how frequently corticosteroid injections can be used in the same area. If anything seems unusual or out of the ordinary please contact our office as soon as possible for further instruction. Referring Provider: SELF [200] Allergies As of Date: 09/08/2017 (No Known Allergies) Date Reviewed: 08/19/2017 Reviewed by: Joselin Sigala - Fully Assessed Reason for Visit: Follow Up [171] Primary Visit Diagnosis:Plantar fasciitis of left foot [M72.2] Order(s):CONSULT TO PHYSICAL THERAPY [9032] Order #: [id number]: 1 Prescriptions as of 09/08/2017 Sig: BUSPIRONE 15 MG TABLET Take 1 tablet by mouth once d* CALCIUM ORAL Take 1,500 mg by mouth three * CHOLECALCIFEROL (VITAMIN D3) * Take 5,000 Units by mouth onc* METOPROLOL TARTRATE 25 MG TAB* Take 25 mg by mouth once josé miguel* Problem List As Of Date 09/08/2017 Noted Resolved Chest pain of pericarditis [I31.9] INVALID FOR* More... Primary hyperparathyroidism (HCC) [E21.0] INVALID FOR* Atrial fibrillation (HCC) [I48.91] INVALID FOR* Nontoxic multinodular goiter [E04.2] INVALID FOR* Other instructions from your clinician: STEROID INJECTION You have been injected with a corticosteroid and local anesthesia today. This should provide relief of symptoms for the next 8 hours or so. After this time frame you will likely experience an increase in pain symptoms again until the effects of the steroid start to work, which should occur within 24-48 hours. Approximately 2% of individuals may experience a post injection flare or severe worsening of symptoms following injection. If this occurs ice the area and take Tylenol or Aleve for pain. In some very rare instances skin depigmentation and joint infection may occur. Joint infection is a concern if you experience any of the following: ? pain for more than 48 hours after the injection ? pain develops more than 2 days after the injection ? the area becomes red, hot or swollen ? you develop a fever following the injection Corticosteroid injections can also rarely interfere with the healing process and weaken tendons, sometimes causing tendons to rupture. Repeated injections of steroids can also damage joint cartilage. For these reasons, there are limits to how many times and how frequently corticosteroid injections can be used in the same area. If anything seems unusual or out of the ordinary please contact our office as soon as possible for further instruction. Disposition: Return in about 1 month (around 10/09/2017) for L heel injection follow up. Follow-up and Disposition History Recorded Encounter Status:Closed by ANNE FONSECA DPM on 09/08/17 PROGRESS Observed: 08/19/2017 Status: COMPLETED Source: [place] 9:32 AM [facility] RE[facility] HNO ID: [id number] Author: Joselin Sigala Service: (none) Author Type: Nurse Practitioner Type: Progress Notes Filed: 08/19/2017 10:24 AM Note Text: Subjective The history is provided by the patient. No neurological surgeon was used. HPI Karma Rojo is a 41 year old female who presents today for CC of ears feel plugged This started over past 2 days She states hearing is slightly muffled. Symptoms are worsened by nothing She has tried water to rinse out without relief. Risk factors uses qtips PMH cerumen impaction BP 138/84 Pulse 106 Temp 37.1 ?C (98.7 ?F) (Tympanic) Resp 18 Wt 83.5 kg (184 lb) BMI 29.70 kg/m? ALLERGIES No Known Allergies ACTIVE PROBLEM LIST Chest Pain of Pericarditis Primary Hyperparathyroidism (Hcc) Atrial Fibrillation (Hcc) Nontoxic Multinodular Goiter Family History Problem Relation Age of Onset - Hypertension Mother - Osteoporosis Maternal Grandmother - Arthritis Maternal Grandmother - Diabetes Maternal Grandfather - Cancer Maternal Grandfather SKIN - Stroke Maternal Grandfather - Hypertension Maternal Grandfather - Cancer Paternal Grandfather LUNG - Diabetes Paternal Aunt - CHONG SYNDROME [OTHER] Sister - Cancer Maternal Uncle - Hypertension Brother Social History Marital status: Spouse name: Enrique Years of education: 18 Number of children: 1 Occupational 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 Negative for chills, fever and malaise/fatigue. HENT: Positive for ear pain (plugged, pressure). Negative for congestion, sinus pain and sore throat. Respiratory: Negative for cough, sputum production, shortness of breath and wheezing. Cardiovascular: Negative for chest pain. Musculoskeletal: Negative for myalgias. Skin: Negative for rash. Neurological: Negative for headaches. Objective Physical Exam Constitutional: She is oriented to person, place, and time and well-developed, well-nourished, and in no distress. HENT: Head: Normocephalic and atraumatic. Right Ear: Tympanic membrane and ear canal normal. There is drainage (cerumen). Tympanic membrane is not injected, not erythematous, not retracted and not bulging. No middle ear effusion. Left Ear: Tympanic membrane and ear canal normal. There is drainage (cerumen). Tympanic membrane is not injected, not erythematous, not retracted and not bulging. No middle ear effusion. Nose: Nose normal. Right sinus exhibits no maxillary sinus tenderness and no frontal sinus tenderness. Left sinus exhibits no maxillary sinus tenderness and no frontal sinus tenderness. Mouth/Throat: Uvula is midline, oropharynx is clear and moist and mucous membranes are normal. No oropharyngeal exudate, posterior oropharyngeal edema, posterior oropharyngeal erythema or tonsillar abscesses. Bilateral cerumen impaction, lavage done by Shaye Layton LPN, patient tolerated well, able to see TM see exam. Eyes: Conjunctivae and EOM are normal. Pupils are equal, round, and reactive to light. Neck: Normal range of motion. Neck supple. Pulmonary/Chest: Effort normal. Lymphadenopathy: Head (right side): No submental, no submandibular, no tonsillar, no preauricular and no posterior auricular adenopathy present. Head (left side): No submental, no submandibular, no tonsillar, no preauricular and no posterior auricular adenopathy present. She has no cervical adenopathy. Right: No supraclavicular adenopathy present. Left: No supraclavicular adenopathy present. Neurological: She is alert and oriented to person, place, and time. Skin: Skin is warm and dry. Psychiatric: Affect normal. Nursing note and vitals reviewed. ASSESSMENT/PLAN: 1. Bilateral impacted cerumen - ICD9: 380.4, ICD10: H61.23 Use may use OTC Debrox or Cerumenex once a month for maintenance. Avoid inserting Q-tips into your ears. Follow up with your PCP as needed. Diagnosis and treatment plan were discussed and questions were answered to the patient's satisfaction. Pt acknowledged understanding of concepts and follow up plan. Specific signs and symptoms that would indicate the need for higher level of care were discussed in detail warranting prompt ER evaluation. Joselin Sigala APRN.CNP CNOV Observed: 08/19/2017 Status: COMPLETED Source: [place] 9:15 AM [facility] REPOSITORY Office Visit (WSTR) KARMA ROJO ([id number]) 1975 F Date Time Provider Department 08/19/17 9:15 AM JOSELIN SIGALA (AME) WSTR During your visit today, we recorded the following information about you: Temperature Pulse Respiration Blood pressure 98.7 degrees 106/minute 18/minute 138/84 Weight 83.5 kg Joselin Sigala APRN.CNP 08/19/2017 10:24 AM Signed Subjective The history is provided by the patient. No neurological surgeon was used. HPI Karma Rojo is a 41 year old female who presents today for CC of ears feel plugged This started over past 2 days She states hearing is slightly muffled. Symptoms are worsened by nothing She has tried water to rinse out without relief. Risk factors uses qtips PMH cerumen impaction BP 138/84 Pulse 106 Temp 37.1 ?C (98.7 ?F) (Tympanic) Resp 18 Wt 83.5 kg (184 lb) BMI 29.70 kg/m? ALLERGIES No Known Allergies ACTIVE PROBLEM LIST Chest Pain of Pericarditis Primary Hyperparathyroidism (Hcc) Atrial Fibrillation (Hcc) Nontoxic Multinodular Goiter Family History Problem Relation Age of Onset - Hypertension Mother - Osteoporosis Maternal Grandmother - Arthritis Maternal Grandmother - Diabetes Maternal Grandfather - Cancer Maternal Grandfather SKIN - Stroke Maternal Grandfather - Hypertension Maternal Grandfather - Cancer Paternal Grandfather LUNG - Diabetes Paternal Aunt - CHONG SYNDROME [OTHER] Sister - Cancer Maternal Uncle - Hypertension Brother Social History Marital status: Spouse name: Enrique Years of education: 18 Number of children: 1 Occupational 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 Negative for chills, fever and malaise/fatigue. HENT: Positive for ear pain (plugged, pressure). Negative for congestion, sinus pain and sore throat. Respiratory: Negative for cough, sputum production, shortness of breath and wheezing. Cardiovascular: Negative for chest pain. Musculoskeletal: Negative for myalgias. Skin: Negative for rash. Neurological: Negative for headaches. Objective Physical Exam Constitutional: She is oriented to person, place, and time and well-developed, well-nourished, and in no distress. HENT: Head: Normocephalic and atraumatic. Right Ear: Tympanic membrane and ear canal normal. There is drainage (cerumen). Tympanic membrane is not injected, not erythematous, not retracted and not bulging. No middle ear effusion. Left Ear: Tympanic membrane and ear canal normal. There is drainage (cerumen). Tympanic membrane is not injected, not erythematous, not retracted and not bulging. No middle ear effusion. Nose: Nose normal. Right sinus exhibits no maxillary sinus tenderness and no frontal sinus tenderness. Left sinus exhibits no maxillary sinus tenderness and no frontal sinus tenderness. Mouth/Throat: Uvula is midline, oropharynx is clear and moist and mucous membranes are normal. No oropharyngeal exudate, posterior oropharyngeal edema, posterior oropharyngeal erythema or tonsillar abscesses. Bilateral cerumen impaction, lavage done by Shaye Layton LPN, patient tolerated well, able to see TM see exam. Eyes: Conjunctivae and EOM are normal. Pupils are equal, round, and reactive to light. Neck: Normal range of motion. Neck supple. Pulmonary/Chest: Effort normal. Lymphadenopathy: Head (right side): No submental, no submandibular, no tonsillar, no preauricular and no posterior auricular adenopathy present. Head (left side): No submental, no submandibular, no tonsillar, no preauricular and no posterior auricular adenopathy present. She has no cervical adenopathy. Right: No supraclavicular adenopathy present. Left: No supraclavicular adenopathy present. Neurological: She is alert and oriented to person, place, and time. Skin: Skin is warm and dry. Psychiatric: Affect normal. Nursing note and vitals reviewed. ASSESSMENT/PLAN: 1. Bilateral impacted cerumen - ICD9: 380.4, ICD10: H61.23 Use may use OTC Debrox or Cerumenex once a month for maintenance. Avoid inserting Q-tips into your ears. Follow up with your PCP as needed. Diagnosis and treatment plan were discussed and questions were answered to the patient's satisfaction. Pt acknowledged understanding of concepts and follow up plan. Specific signs and symptoms that would indicate the need for higher level of care were discussed in detail warranting prompt ER evaluation. Joselin Sigala APRN.AME Sigala APRN.CNP 08/19/2017 10:07 AM Signed ASSESSMENT/PLAN: 1. Bilateral impacted cerumen - ICD9: 380.4, ICD10: H61.23 Use may use OTC Debrox or Cerumenex once a month for maintenance. Avoid inserting Q-tips into your ears. Follow up with your PCP as needed. GO TO THE ER IF: 1. You have a severe headache or pain around the ear. 2. You notice swelling around the ear. 3. You have a seizure (convulsion), twitching of the facial muscles, or passes out. 4. You are dizzy, have a stiff neck, or cannot walk or talk normally. Referring Provider: SELF [200] Allergies As of Date: 08/19/2017 (No Known Allergies) Date Reviewed: 08/19/2017 Reviewed by: Joselin Sigala - Fully Assessed Reason for Visit: ears feel plugged [Other] Cmt: woke up this am and both feel plugged-got water in them last night Primary Visit Diagnosis:Bilateral impacted cerumen [H61.23] Prescriptions as of 08/19/2017 Sig: BUSPIRONE 15 MG TABLET Take 1 tablet by mouth once d* CALCIUM ORAL Take 1,500 mg by mouth three * CHOLECALCIFEROL (VITAMIN D3) * Take 5,000 Units by mouth onc* METOPROLOL TARTRATE 25 MG TAB* Take 25 mg by mouth once josé miguel* Problem List As Of Date 08/19/2017 Noted Resolved Chest pain of pericarditis [I31.9] INVALID FOR* More... Primary hyperparathyroidism (HCC) [E21.0] INVALID FOR* Atrial fibrillation (HCC) [I48.91] INVALID FOR* Nontoxic multinodular goiter [E04.2] INVALID FOR* Other instructions from your clinician: ASSESSMENT/PLAN: 1. Bilateral impacted cerumen - ICD9: 380.4, ICD10: H61.23 Use may use OTC Debrox or Cerumenex once a month for maintenance. Avoid inserting Q-tips into your ears. Follow up with your PCP as needed. GO TO THE ER IF: 1. You have a severe headache or pain around the ear. 2. You notice swelling around the ear. 3. You have a seizure (convulsion), twitching of the facial muscles, or passes out. 4. You are dizzy, have a stiff neck, or cannot walk or talk normally. Encounter Status:Closed by JOSELIN SIGALA CNP on 08/19/17 ALLERGIES ALLERGIES DATE TYPE / CODE NAME / CODE REACTION SEVERITY SOURCE 04/05/2018 Drug No Known Unknown [facility] Allergy/416 Allergies/Z85147 Hospital 671132(SNOM 0388(RXNORM) Repository ED CT) Drug NO KNOWN [facility] Class/05036 ALLERGIES [place] 1003(SNOMED Repository CT) ENCOUNTERS ENCOUNTERS ADMIT/DISCHARGE ACCOUNT ADMITTING ENCOUNTER LOCATION SOURCE NUMBER CLASS 04/23/2018/04/25/19 [id number] Ambulatory [address] [place] Repository 04/18/2018/04/20/20 [id number] Ambulatory [address] [place] Repository 04/18/2018/05/14/19 [id number] Ambulatory [address] [place] Repository 04/18/2018 [id number] Ambulatory Building:[facility] Practices Repository 04/13/2018/04/13/20 [id number] Ambulatory [address] [place] Repository 04/06/2018/04/06/20 [id number] Ambulatory [address] ing:SDCRoom: Repository AC01 04/02/2018/04/03/20 [id number] Ambulatory [address] [place] Repository 04/02/2018/04/02/20 [id number] Ambulatory [address] [place] Repository 04/02/2018/12/18/20 [id number] Ambulatory [address] [place] Repository 03/19/2018/03/19/20 [id number] Ambulatory [address] Repository 03/01/2018/03/02/20 [id number] [facility] ing:ED Repository 01/20/2018/01/23/20 [id number] Ambulatory [address] Repository 10/27/2017/10/28/19 [id number] Emergency [address] ing:ED Repository 10/12/2017/10/13/19 [id number] Ambulatory BMSBuilding:[place] [facility] Repository 10/11/2017/10/13/19 [id number] Ambulatory [address] Repository 10/10/2017/10/12/19 [id number] Ambulatory [address] Repository 10/03/2017/10/05/19 [id number] Ambulatory [address] Repository 09/25/2017/09/27/19 [id number] Ambulatory [address] Repository 09/08/2017/09/13/19 [id number] Ambulatory [address] Repository 08/19/2017/08/23/19 [id number] Ambulatory [address] Repository PAYERS PAYERS ENCOUNTER GUARANTOR PAYER SUBSCRIBER SOURCE 04/18/2018 Karma D Primary Karma D OHIP Practices DaughertyDOB: Insurance:Medical RebecaB: Repository [id number] Joan [facility] [id number] Number: [address], [address]Wds: [phone]) [id number] [place] [address]Ylz: [phone] ()Tel: Date:0219-81-73Kgug Name:[facility] Joan ()Tel: [phone]) (IS) [place], [place] [phone] (QH) [phone]: 04/18/2018 Secondary Karma D OHIP Practices Insurance:Medical DaughertyDOB: Repository [facility] [id number] Number: [address], [id number] [place] [address]Uzd: Date:2003-08-23 ~(3 4730-25-31Ojts 30 (HP)Tel: Name:[facility] [address], [place] () [phone]: 04/18/2018 Tertiary Karma D OHIP Practices Insurance:Medical DaughertyDOB: Repository [facility] [id number] Number: [address], [id number] [place] [address]Zyf: Date:2005-11-22 - ~(6509-99-02Hwui 30 (HP)Tel: Name:[facility] [address] [place] [address] () [phone]: 04/18/2018 Tertiary Karma D OHIP Practices Insurance:Sonal SpainertyDOB: Repository [facility] Number: [id number] [address], Date:2006-10-22 [place] [address]Bdp: [id number] ~(3 Name:[facility] [address] (HP)Tel: [phone], [place] [phone]: [phone] ([phone] 04/18/2018 Tertiary Karma D OHIP Practices Insurance:Medical DaughertyDOB: Repository [facility] [id number] Number: [address], [id number] [place] [address]Frh: Date:2008-04-24 - ~(3 [id number] 30 (HP)Tel: Name:[facility] [address], [place] () [phone]: 04/18/2018 Tertiary Karma D OHIP Practices Insurance:Medical DaughertyDOB: Repository [facility] [id number] Number: [address] [id number] [place] [address]Sxd: Date:2008-10-22 - ~(3 2002-97-20Hjdo 30 (HP)Tel: Name:PATO Franco [address] [place] [address] (WP) [phone]: 04/06/2018 ENRIQUE SILVERIO Primary KARMA D [place] [facility] Insurance:MEDICAL DAUGHERTYDOB: [facility] [id number] [facility] [id number], [place] Number: Repository [id number]: [phone] [id number] [phone] (HP) Date:8120-21-60KX [address] [address]KU: 04/06/2018 Secondary NOT GIVENUNK Lucita Insurance:SELF PAY [facility] Number: Effective Repository Date:2018-04-05 03/01/2018 ENRIQUE SILVERIO Primary KARMA D [place] [facility] Insurance:MEDICAL DAUGHERTYDOB: [facility] [id number] [facility] [id number], [place] Number: Repository [id number]: [phone] [id number] [phone] (HP) Date:0712-28-73KH [address] [address]RX: 03/01/2018 Secondary NOT GIVENUNK Lucita Insurance:SELF PAY [facility] Number: Effective Repository Date:2018-03-01 10/27/2017 ENRIQUE SILVERIO Primary KARMA D [place] [facility] Insurance:MEDICAL DAUGHERTYDOB: [facility] [id number] [facility] [id number] Number: Repository [id number]: [phone] [id number] [phone] (HP) Date:6706-31-04DE [address] [address]NH: 10/27/2017 Secondary NOT GIVENUNK Lucita Insurance:SELF PAY [facility] Number: Effective Repository Date:2017-10-27 10/12/2017 Enrique Silverio Primary NOT GIVENUNK [place] Inydqifes[address] [facility] Insurance:SELF PAY [facility] [address] [place] [address] Number: Effective Repository [id number]: [phone]) Date:2017-10-12 [phone] ()
== END 2018-04-06 16:01 | disposition home or self-care (01) ==
LOC: SDC 12:16 → AC 12:17
PROVIDERS: Anesthesiology; Family Provider Internal Medicine; PCP Internal Medicine; Referring Provider Urology; Visit Provider Urology
PROC: 0TJ98ZZ Inspection of Ureter, Via Natural or Artificial Opening Endoscopic (ICD-10-PCS; CPT 52352; principal; 2018-04-06 14:00)
DX: N20.1 Calculus of ureter (principal); Z87.442 Personal history of urinary calculi
CPT/HCPCS: 00873; 52356; 76000; 81025; J7120; C1769; C2617; J2405

== ENCOUNTER → 2018-05-30 07:57 | Outpatient (CLI) | payer OTHER, SELFPAY ==
--- NOTE | 2018-05-30 08:00 | RDU_ITS ---
Reason For Study: Elevated BP Right Renal Artery Left Renal Artery Right renal artery ostium 119/43 Left renal artery ostium 110/40 RSV/EDV. PSV/EDV. Right renal artery proximal 131/55 Left renal artery proximal PSV/EDV PSV/EDV. 119/54 . Right renal artery mid 137/63 Left renal artery mid 76/32 PSV/EDV. PSV/EDV . Right renal artery distal 115/51 Left renal artery distal 167/72 PSV/EDV. PSV/EDV. Right Renal Parenchyma Left Renal Parenchyma Upper Pole Medula 46/20 PSV/EDV. Left upper pole medulla 55/26 Right upper pole medulla EDR 0.43 . PSV/EDV . Right upper pole medulla R.I. Left upper pole medulla EDR 0.47 . 0.58 . Left upper pole medulla R.I. 0.52 . Upper Pepe Cortx 19/9 PSV/EDV. UP Cortex 20/10 PSV/EDV. Right upper pole cortex EDR 0.47 . Left upper pole cortex EDR 0.50 . Right upper pole cortex R.I. 0.52 . Left upper pole cortex R.I. 0.50 . Right lower Pole medulla 35/17 Left lower Pole medulla 21/10 PSV/EDV . PSV/EDV . Right lower pole medulla EDR 0.49 . Left lower pole medulla EDR 0.48 . Right lower pole medulla R.I. Left lower pole medulla R.I. 0.53 . 0.50 . Lower Pole Cortx 16/7 PSV/EDV. Lower Pole Cortex 19/9 PSV/EDV. Left lower pole cortex EDR 0.44 . Right lower pole cortex EDR 0.47 . Left lower pole cortex R.I. 0.57 . Right lower pole cortex R.I. 0.56 . Left Renal Hilar Right Renal Hilar LT Hilar avg 175/76 PSV/EDV . Right Hilar avg 176/78 PSV/EDV. Left hilar acceleration time 22 Right hilar acceleration time 29 m/sec. m/sec. Left Renal Dimensions Right Renal Dimensions Left kidney size 10.9 cm . Right kidney size 11.0 cm . Left cortical dimension 1.25 cm . Right cortical dimension 1.21 cm . Aorta Proximal abdominal aorta 1.68cm x 1.72 cm . Proximal abdominal aorta peak systolic velocity is 133 cm/sec . Distal abdominal aorta 1.48cm x 1.35 cm . Distal abdominal aorta peak systolic velocity is 87 cm/sec . Interpretation Summary Dimensions of the intra-abdominal aorta appear normal, without evidence of aneurysmal dilatation. Renal artery velocities are bilaterally normal. Acceleration times are normal bilaterally. There is no evidence of hemodynamically significant renal artery stenosis on either side. Renovascular resistance appears to be bilaterally normal . Cortical dimensions are bilaterally normal. Kidneys appear normal in size bilaterally. Ordering Physician: ANNA Graham Referring Physician: Rena Renner Performed By: Anjelica Posadas, ÓSCAR, RVT
--- NOTE | 2018-05-30 16:11 | US_ITS ---
STUDY: RENAL ULTRASOUND - COMPLETE REASON FOR EXAM: Female, 42 years old. Abnormal blood pressure TECHNIQUE: Ultrasound evaluation of the kidneys was performed with real-time and static silverman-scale imaging. COMPARISON: None. FINDINGS: RIGHT KIDNEY: Normal location of the right kidney, which is normal in size. The right kidney measures 11.7 x 6.0 x 5.3 cm. There is a normal cortex of the right kidney. The renal cortex measures 1.4 cm. 2 cysts are noted up to 1.8 cm. There are calculi up to 7 mm. There is no right hydronephrosis. DISTAL RIGHT URETER: There is non-visualization of the distal right ureter. There is a visualized right ureteral jet. LEFT KIDNEY: Normal location of the left kidney, which is normal in size. The left kidney measures 12.5 x 4.9 x 6.2 cm. There is a normal cortex of the left kidney. The renal cortex measures 1.9 cm. There are calculi noted up to 6 mm. There is no left hydronephrosis. DISTAL LEFT URETER: There is non-visualization of the distal left ureter. There is a visualized left ureteral jet. BLADDER: The distended urinary bladder has a volume of 420 ml. The post void urinary bladder has a volume of 5 ml. There is a normal wall thickness of the distended urinary bladder. There is no demonstrated mass within the urinary bladder. There are no demonstrated bladder calculi. US/Kidney and Bladder IMPRESSION: Nonobstructive calculi are noted of the kidneys . Right renal cysts. Minimal postvoid residual of the urinary bladder. Electronically Signed: Jose Peacock DO at 20:51 EST Tel [phone], Service support ,
== END ==
PROVIDERS: Family Provider Internal Medicine; PCP Internal Medicine; Referring Provider Nurse Practitioner Gerontology; Visit Provider Nurse Practitioner Gerontology
DX: R03.0 Elevated blood-pressure reading, without diagnosis of hypertension (principal); R03.1 Nonspecific low blood-pressure reading
CPT/HCPCS: 76770; 93975

== ENCOUNTER → 2018-07-19 15:02 | Outpatient (CLI) | payer OTHER, SELFPAY ==
--- NOTE | 2018-07-19 | LES_PTH ---
PATIENT: GENARO MYRICK LOC: [facility] U#:[id number] AGE/SX: 49/F ROOM: RE07/19/[address]: Dr. Tanmay Mcknight MD : 1975 BED: DIS: SPEC #: [id number] RECD: 07/19/18 15:01 STATUS: JUAN CASIMIRO #: [id number] GRISEL: 07/19/18 00:[address]: Tanmay Mcknight DEPT: SURGICAL PATHOLOGY RECD BY: Enrique Marion ENTERED: 07/20/18 09:06 SP TYPE: Lesion OTHR DR: Dr. Rena Renner, DO Tissues: Skin of back, NOS Procedures: Surgery Specimen Level III HEADER OPERATION: Left back lipoma excision PRE-OP DIAGNOSIS: Left back lipoma TISSUE SUBMITTED: Left back tissue MICROSCOPIC DIAGNOSIS Soft tissue lesion of left back, excision: Mature adipose tissue consistent with angiolipoma. AM:hortensia 4/1/19 MICROSCOPIC DESCRIPTION Slides are reviewed. GROSS DESCRIPTION Received in fixative is one container labeled with the patient's name and designated left back. The specimen consists of multiple irregular fragments of yellow adipose tissue that in aggregate measure 2 x 2 x 0.8 cm. The largest piece if bisected and reveal yellow adipose cut surfaces without area of hemorrhage, necrosis or cystic degeneration. The entire specimen is submitted in one cassette. / SJ:rg 07/20/18 TC:1 CPT: 76084
[2018-07-19 13:59] VITALS: BMI 29.2
== END ==
PROVIDERS: Family Provider Internal Medicine; PCP Internal Medicine; Referring Provider Surgery; Visit Provider Surgery
DX: D17.1 Benign lipomatous neoplasm of skin and subcutaneous tissue of trunk (principal)
CPT/HCPCS: 88304; 88305

== ENCOUNTER → 2018-10-18 13:34 | Outpatient (CLI) | payer OTHER, BC, SELFPAY ==
[2018-07-19 13:59] VITALS: BMI 29.2
--- NOTE | 2018-10-18 13:39 | VDLE_ITS ---
Reason For Study: Pain Procedure LEFT Exam performed in department. GSV is normal. A preliminary report was called and/or faxed CFV is compressible, spontaneous, phasic, to Serafin. competent, and demonstrates normal augmentation. FV is compressible, spontaneous, phasic, competent and demonstrates normal augmentation. POP V is compressible, spontaneous, phasic, competent and demonstrates normal augmentation. T/P Trunk is compressible. PTV is compressible. LT PerV is compressible. Interpretation Summary Deep veins of the left lower extremity are patent and compressible segmentally. There is no evidence of left lower extremity deep vein thrombosis. Valvular competence appears intact within the proximal deep venous system on the left . The left greater saphenous vein appears patent and compressible segmentally. Ordering Physician: Mandi Betancourt Referring Physician: Rena Renner M.D. Performed By: Kacey Sharma RVT
== END ==
PROVIDERS: Family Provider Internal Medicine; PCP Internal Medicine; Referring Provider Nurse Practitioner Gerontology; Visit Provider Nurse Practitioner Gerontology
DX: M79.605 Pain in left leg (principal)
CPT/HCPCS: 93971

== ENCOUNTER 2019-04-04 09:43 | Day surgery (SDC) | payer OTHER, BC, SELFPAY ==
[2018-07-19 13:59] VITALS: BMI 29.2
--- NOTE | 2019-03-12 17:14 | PCM.HP.BLA ---
History and Physical Date of Admission: 03/12/19 Pre-Op History and Physical ? HPI: The patient is a 43 year old female presenting for pre-operative visit. She is scheduled for?LAVH, bilateral salpingectomy, posterior repair, Fragoso's culdoplasty, cystoscopy, for?symptomatic prolapse, rectocele, fibroid uterus and menorrhagia on?April 04, 2018. ??Procedure discussed along with risks, benefits and complications. ?Other alternatives discussed for management. Consent form signed??Yes.? PAST MEDICAL HISTORY PAST MEDICAL HISTORY Diagnosis Date ? Hypertension ? ? PMH - PAST MEDICAL HISTORY OF 2007 ? right foot 4th digit fx ? PMH - PAST MEDICAL HISTORY OF 08/2007 ? Atrial Fibrillation s/p ablation 2010 ? Unspecified hemorrhoids without mention of complication ? ? Urinary calculus, unspecified ? ? Renal stones ? Variants of migraine, not elsewhere classified, without mention of intractable migraine without mention of status migrainosus ? ? ? PAST SURGICAL HISTORY PAST SURGICAL HISTORY Procedure Laterality Date ? ABLATE HEART DYSRHYTHM ? 2010 ? afib ? INSERTION OF IUD ? 04/23/2018 ? PAST SURGICAL HISTORY OF ? 1992 ? R KNEE SURGERY ? PAST SURGICAL HISTORY OF ? 1993 ? WISDOM TEETH EXTRACTION ? PAST SURGICAL HISTORY OF ? ? ? polyp removal from uterus ? PAST SURGICAL HISTORY OF ? 01/2015 ? kidney stones/stents X2 ? THYROID SURGERY HX ? 04/2015 ? parathyroid removed ? ? CURRENT MEDICATIONS Current Outpatient Medications Medication Sig Dispense Refill ? metoprolol succinate ER (TOPROL XL) 25 mg 24 hr tablet Take 1 tablet by mouth once daily. 90 tablet 3 ? levonorgestrel (MIRENA) 20 mcg/24 hr (5 years) IUD 1 Each by INTRAUTERINE route one time only. ? ? ? escitalopram oxalate (ESCITALOPRAM) 5 mg tablet Take by mouth. ? ? ? ibuprofen (MOTRIN) 600 mg tablet ? No current facility-administered medications for this visit.? ? ALLERGIES:?Patient has no known allergies. ? PERSONAL HISTORY:? SOCIAL HISTORY Social History ? Tobacco Use ? Smoking status: Never Smoker ? Smokeless tobacco: Never Used Substance Use Topics ? Alcohol use: No ? Drug use: No ? FAMILY HISTORY:? FAMILY HISTORY FAMILY HISTORY Problem Relation Age of Onset ? Hypertension Mother ? ? Osteoporosis Maternal Grandmother ? ? Arthritis Maternal Grandmother ? ? Diabetes Maternal Grandfather ? ? Cancer Maternal Grandfather ?SKIN ? Stroke Maternal Grandfather ? ? Hypertension Maternal Grandfather ? ? Cancer Paternal Grandfather ?LUNG ? Diabetes Paternal Aunt ? ? other (CHONG SYNDROME) Sister ? ? Cancer Maternal Uncle ? ? Hypertension Brother ? ? REVIEW OF SYMPTOMS: GENERAL: denies fevers or chills ENDOCRINOLOGY: has not been on steroids Cardiology : denies palpitations or chest pain Respiratory: denies SOB or cough Hematology: denies history of prolonged bleeding or easy bruising or VTE Allergy: Denies history of personal or family history of allergy to anesthesia ? ? PHYSICAL EXAMINATION: ? VITALS:?There were no vitals taken for this visit. ? GENERAL:??The patient is well nourished, well hydrated in no acute distress. ?, The patient is oriented to time, place, and person. NECK:?Supple. No lynphadenopathy, normal thyroid, no thyromegaly. LUNGS:?Clear to auscultation bilaterally. no wheezes, rhonchi or rales HEART:?Regular rate and rhythm, Normal heart sounds and No murmurs or gallops EMB 04/18/18- Secretory features and stromal breakdown Pap 04/23/18- neg w/ + non HRHPV, neg colp biopsies ? Pelvic US 04/18/18 ? IMPRESSION: Multiple uterine fibroids. Recommendations / therapy: Clinical correlation. Indication: Abnormal Uterine Bleeding. History: Last menstrual period: 04/02/2018. 17th day of cycle. Gynecological Ultrasonography: Uterus: normal, anteverted. Size: Longitudinal 99 mm. Anterio- posterior 53 mm. Transverse 73 mm. Volume: 200.6 ml. Fibroids: Fibroid 1: Size: 28 mm x 22 mm x 25 mm. Type: anterior. Position: left mid uterus. Fibroid 2: Size: 17 mm x 13 mm x 13 mm. Type: posterior. Position: left mid uterus. Fibroid 3: Size: 18 mm x 15 mm x 17 mm. Type: posterior. Position: left lower uterine segment. Endometrium: endometrium clearly visualized. Endometrium thickness total: 7.9 mm. Right Ovary: normal. Visible. Morphology: normal morphology. Right Ovary size: 35 mm x 22 mm x 24 mm. Volume: 9.7 ml. Left Ovary: normal. Visible. Morphology: normal morphology. Left Ovary size: 32 mm x 28 mm x 16 mm. Volume: 7.5 ml. Cul de Sac / Pouch of Juanjose: no free fluid visible. ? IMPRESSION:?metrorrhagia, intramural uterine fibroids, uterine prolapse, rectocele ? PLAN:???The risks/benefits/alternatives and personal involved for the planned?LAVH, bilateral salpingectomy, Fragoso's culdoplasty, rectocele repair and cystoscopy?were reviewed with the patient. Her questions were answered to her satisfaction and she desires to proceed. ?Consent was signed. ?I reviewed with her postop instructions and expectations. ? ? I have reviewed and updated past medical and surgical history, medications and allergies. this history and physical was completed in my office on 03/12/2018. Talita Feliz M.D.
--- NOTE | 2019-03-28 15:55 | EKG12_ITS ---
Test Reason : PRE OP Blood Pressure : / mmHG Vent. Rate : 096 BPM Atrial Rate : 096 BPM P-R Int : 132 ms QRS Dur : 076 ms QT Int : 356 ms P-R-T Axes : 078 054 022 degrees QTc Int : 449 ms Normal sinus rhythm Normal ECG Confirmed by LAURA BURCH, KAELA ([id number]), non linear editor MIGUELINA MATTA ([id number]) on 03/31/2019 10:17:35 AM Referred By: Talita Feliz Confirmed By:YVON SANCHEZ MD
[2019-03-28 17:39] LABS: Hematocrit 40.4 % (37-47); Hemoglobin 13.6 g/dL (12.0-15.0); Mean Corp Hgb Conc 33.7 g/dL (32-36); Mean Corpuscular Hgb 29.2 pg (27.0-32.0); Mean Corpuscular Volume 86.9 fL (81-99); Mean Platelet Vol. 9.1 fl (6.2-12.0); Platelet Count 317 K/mm3 (150-450); RBC Distribution Width CV 12.7 % (11.6-14.6); Red Blood Count 4.65 M/mm3 (4.2-5.4)
[2019-03-28 18:05] LABS: Anion Gap 7 (5-15); BUN 14 mg/dL (7-18); BUN/Creat Ratio 18.4 RATIO (10-20); Calcium,Total 9.1 mg/dL (8.5-10.1); Chloride 110 mmol/L (98-107); Creatinine, Serum 0.76 mg/dL (0.55-1.02); EST Glomerular Filtration Rate 87 mL/min (>60); Est Glom Filt Rate - Afr Amer 106 mL/min (>60); Glucose 83 mg/dL (74-106); Potassium 3.8 mmol/L (3.5-5.1); Sodium Level 140 mmol/L (136-145)
[2019-04-04] VITALS (13 sets, daily range): BP systolic 124–159; BP diastolic 72–109; PULSE 73–98; RESP 16–18; TEMP 36.4–37.3; O2SAT 95–100; BMI 30.1
[2019-04-04] MEDS: Lactated Ringers 1,000 ML 70 ML IV ×2 (07:00→21:56)
[2019-04-04] MEDS: Ondansetron 4 MG/2 ML Vial IV (07:00)
[2019-04-04 10:11] LABS: Bedside Glucose 88 mg/dL (70-110)
[2019-04-04] MEDS: Lactated Ringers 1,000 ML 40 ML IV (10:12)
[2019-04-04] MEDS: Magnesium Sulfate 4gm/100mL 4 GM/100 ML IV.SOLN. IV (10:13)
[2019-04-04] MEDS: Enoxaparin 40 MG/0.4 ML Syringe SC (10:15)
[2019-04-04 10:17] LABS: Internal QC Validated? YES +Cl - CLEAR BKGD; Pregnancy, Urine Negative Negative
[2019-04-04] MEDS: Celecoxib 200 MG Capsule 400 MG PO (10:17)
[2019-04-04] MEDS: Phenazopyridine 95 MG Tablet 190 MG PO (10:17)
[2019-04-04] MEDS: Gabapentin 600 MG Tablet PO (10:18)
[2019-04-04] MEDS: Acetaminophen 500 MG Tablet 1000 MG PO ×3 (10:25→23:34)
--- NOTE | 2019-04-04 10:40 | HYST_PTH ---
PATIENT: GENARO MYRICK LOC: [facility] U#:[id number] AGE/SX: 43/F ROOM: RE04/04/[address]: Dr. Talita Feliz MD : 1975 BED: DIS: 04/05/2019 SPEC #: [id number] RECD: 04/04/19 15:47 STATUS: JUAN REJulius #: [id number] GRISEL: 04/04/19 10:[address]: Talita Feliz DEPT: SURGICAL PATHOLOGY RECD BY: Jani Correa ENTERED: 04/05/19 09:20 SP TYPE: HYSTERECT OTHR DR: Dr. Rena Renner DO Tissues: Uterus, NOS Procedures: Surgery Specimen Level V HEADER OPERATION: ERAS, hysterectomy, LAVH, salpingectomy, Fragoso's culdoplasty PRE-OP DIAGNOSIS: Metrorrhagia, intramural uterine fibroids, uterine prolapse, rectocele TISSUE SUBMITTED: Uterus, bilateral fallopian tubes, cervix MICROSCOPIC DIAGNOSIS Uterus, cervix and bilateral fallopian tubes, vaginal hysterectomy and bilateral salpingectomy: Cervix - chronic cystic cervicitis. Endometrium - consistent with exogenous hormone effects. Myometrium - intramural leiomyomas (largest measuring 3 cm in diameter). Bilateral fallopian tubes - no pathologic diagnosis. Intrauterine device (gross only). SJ:hortensia 04/08/19 MICROSCOPIC DESCRIPTION Slides are reviewed. GROSS DESCRIPTION Received in fixative is one container labeled with the patient's name and designated uterus, bilateral fallopian tubes, cervix. The specimen consists of a hysterectomy specimen consisting of uterus with cervix and detached bilateral fallopian tubes. The uterus with cervix weighs 184 gm and measures 10 x 9 x 6 cm. The serosal surface is zazueta, glistening. The ectocervical mucosa is unremarkable. The external os is slit-like in contour. The endocervical canal measures 3 cm in length and the endocervical mucosa is zazueta, glistening and unremarkable. Sections of the cervix reveal a few cysts filled with mucoid material. The triangular endometrial cavity measures 5 cm in length and 2 cm in width. A white T-shaped intrauterine device is present in the endometrial cavity. The horizontal arm of the T measures up to 3.5 cm in width and the vertical arm measures up to 3 cm in length. A two-prong suture is noted measuring 6 cm in length. The intrauterine device is well placed in the endometrial cavity and freely movable. The endometrium is congested without any mass lesion and measures 0.1 cm in thickness. Sections of the uterine wall reveal multiple nodular masses. The largest mass measures 3 cm in diameter. Sections of these masses reveal zazueta whorled cut surfaces without areas of hemorrhage, necrosis or cystic degeneration. The uninvolved uterine wall measures up to 2.5 cm in thickness. The detached?fallopian tubes are not identified as right or left and measures 5 cm in length and 0.7 cm in diameter and 7 cm in length and up to 0.5 cm in diameter. The fimbrial ends are identified. Sections reveal unremarkable cut?surfaces. [employer] sections are submitted in 11 cassettes as follows: 1??anterior cervix, 2??posterior cervix, 3 & 4 - anterior uterine wall, 5 & 6 - posterior uterine wall, 7??largest nodular mass, 8??intermediate sized nodular mass, 9 - smaller nodular masses, 10 & 11 - fallopian tubes, each containing one fallopian tube. / RAMÍREZ:hortensia 04/05/19 TC:1 CPT: 35259
[2019-04-04] MEDS: Cefazolin 2 GM in 0.9% Normal Saline 100 ML IV (10:55)
[2019-04-04] MEDS: dexAMETHasone 10 MG/ML Vial 8 MG IV (11:05)
--- NOTE | 2019-04-04 13:56 | OP.PCM_ITS ---
Report of Operation Date of Procedure: 04/04/19 Pre-Operative Diagnosis: Menorrhagia, symptomatic rectocele, uterine fibroids Post-Operative Diagnosis: Same Surgery/Procedure Performed:: Laparoscopic-assisted vaginal hysterectomy with bilateral salpingectomy, Fragoso's culdoplasty, rectocele repair and cystoscopy Description of Surgical Findings:: Fibroid uterus, normal-appearing tubes and ovaries bilaterally, otherwise normal-appearing nasal cavity. Normal-appearing vagina and cervix. Grade 2 rectocele. care assistant: Richelle Hernandez care assistant: shanel Sanchez Type of Anesthesia:: General Anesthesiologist: Amelia Schultz Special Medications: none Specimen's removed: uterus, cervix, bilateral tubes Drains: echavarria Estimated Blood Loss (mL): 50 Fluids Replaced: 1200 Description of Procedure: The patient was taken to the operating room where she was prepped and draped in the dorsal lithotomy position. Her arms were tucked to the side and padded and her legs were placed in the yellowfin stirrups. Care was taken to ensure that she was placed in a neurologically safe and neutral position. A weighted speculum was placed in the vagina and the anterior lip of the cervix was grasped with a single-tooth tenaculum. The uterus sounded to 8 centimeters. The ZUMI uterine manipulator was placed and secured. The Echavarria catheter was placed to straight drain. Attention was turned to the abdominal portion of the case. Before skin incisions were made they were infiltrated with 0.5% Marcaine solution for local anesthetic. A 5 mm intraumbilical incision was made and while tenting the anterior abdominal wall up with towel clamps a 5 mm blade less trocar and sleeve were advanced directly into the peritoneal cavity. Peritoneal placement was confirmed with the laparoscope the pneumoperitoneum was created, and the underlying abdominal contents were intact. The patient was placed in Trendelenburg and the above findings were noted. Right and left lateral 5 mm trochars were placed under direct visualization without difficulty. The antimesenteric portion of the tube was clamped sealed and transected serially on both sides with the LigaSure device. The round ligaments were clamped sealed and transected and a window was made in the peritoneum. The utero-ovarian ligaments were then clamped, sealed and transected with the LigaSure device and the pedicles were hemostatic The bladder flap was dissected down with the LigaSure device and blunt dissection and the uterine arteries were then skeletonized. The uterine arteries were clamped, sealed and transected on both sides with the LigaSure device. At this point the pedicles were all examined and found to be hemostatic. Attention was turned to the vaginal portion of the case. 1% lidocaine with dilute epinephrine solution was used to infiltrate the anterior vaginal epithelium over the cervix. An incision was made around the circumference of the cervix. The vaginal epithelium was dissected back with blunt and sharp dissection. The posterior colpotomy incision was made with the Wolf scissors and the weighted speculum was placed in the posterior cul-de-sac. The anterior cul-de-sac was entered sharply and an anterior retractor was placed.. The uterosacral ligaments were clamped, transected and suture-ligated. the next pedicle contained the anterior peritoneum and part of the cardinal ligament. The pedicle was was clamped with a Matilda clamp, transected and suture-ligated. Hemostasis was noted. Third clamp was needed on both sides and this was clamped, transected and suture ligated and then the uterus was free and brought through the vagina. At this point, the pedicles were all examined and hemostasis was assured. A modified Fragoso's culdoplasty was performed. A 2-0 PDS was placed through the posterior vaginal epithelium and reefed across to the right uterosacral ligament and then back across the left uterosacral ligament then back to the midline of the vagina and out. A second suture was placed in a similar fashion just going slightly more cephalad. The vaginal cuff was then closed in a horizontal fashion with interrupted 0 Vicryl [id number] sutures. Care was taken to secure the vagina to the uterosacral ligaments. Fragoso's sutures were tied down. The Echavarria catheter was removed and a cystoscopy was performed. The bladder appeared normal and was intact. Both ureteral orifices were noted and both ureteral jets were seen. The cystoscope was removed and the Echavarria catheter was placed back to straight drain. Posterior repair was then performed in the usual fashion. The vaginal epithelium was dissected off the underlying tissue with blunt and sharp dissection. Interrupted 0 Vicryl sutures were used to imbricate the rectocele. The excess vaginal epithelium was trimmed. The perineal body was reapproximated with an 0 Vicryl suture. The vaginal epithelium was then closed in a running fashion along with the perineal epithelium with a 2-0 Vicryl suture. A rectal exam was performed to ensure no sutures penetrated the rectum. Vaginal cuff was then packed with damp plain gauze. The laparoscope was reinserted into the abdomen and the pneumoperitoneum was re- created. The pedicles were reexamined and found to be hemostatic. The vaginal cuff was hemostatic. Ángel was placed over the peritoneal edges and no active bleeding was noted through the Ángel. The right and left lateral ports were taken out and the sites were hemostatic. The pneumoperitoneum was released and even under low pressure there was no bleeding of any of the pedicles are vaginal cuff. The umbilical port was removed. The umbilical skin incisions were closed with Monocryl suture and skin glue by Dr. Avila. The vaginal instruments were removed by me and a vaginal sweep was completed by me. The surgery was performed by me with assistance other than the portions dictated as above. There were no qualified residents available for this procedure. All sponge lap and needle counts were correct and the patient was transferred to the recovery room in stable condition. Grafts/Implants Used: none - Complications none - Admit VTE Documentation VTE Present on Admission: No VTE Mechan Device Prophylaxis: SCD's VTE Pharm Prophylaxis ordered?: Yes
[2019-04-04 14:11] LABS: Bedside Glucose 108 mg/dL (70-110)
[2019-04-04] MEDS: Ketorolac 30 MG/ML Syringe IV ×2 (17:33→23:34)
[2019-04-04] MEDS: Docusate Sodium 100 MG Capsule PO (20:11)
[2019-04-04] MEDS: oxyCODONE 5 MG Tablet PO (21:55)
[2019-04-05] MEDS: Ketorolac 30 MG/ML Syringe IV (06:10)
[2019-04-05] MEDS: Acetaminophen 500 MG Tablet 1000 MG PO (06:10)
[2019-04-05 06:19] VITALS: BP 130/70; PULSE 68; RESP 16; TEMP 36.7; O2SAT 95
[2019-04-05 06:27] LABS: Hematocrit 34.2 % (37-47); Hemoglobin 11.5 g/dL (12.0-15.0); Mean Corp Hgb Conc 33.6 g/dL (32-36); Mean Corpuscular Volume 86.4 fL (81-99); Mean Platelet Vol. 8.9 fl (6.2-12.0); Platelet Count 286 K/mm3 (150-450); RBC Distribution Width CV 12.5 % (11.6-14.6); RBC Distribution Width SD 39.3 fl (35.1-43.9); Red Blood Count 3.96 M/mm3 (4.2-5.4)
[2019-04-05 07:20] VITALS: O2SAT 96
--- NOTE | 2019-04-05 08:53 | PN.OBGYN_ITS ---
Subjective: Pain well controlled. No gross vaginal bleeding. No nausea. Passed some flatus this morning. Tolerated regular diet - Physical Exam Vitals/I&O's: Vital Signs Temp Pulse Resp BP Pulse Ox 98.1 F 68 16 130/70 H 96 04/05/19 06:19 04/05/19 06:19 04/05/19 06:19 04/05/19 06:19 04/05/19 07:20 Oxygen Flow Rate (L/min) 6 Oxygen Delivery Method Room Air Weight: 86 kg Body Mass Index (BMI) 30.1 Intake and Output for Last 24 Hours 04/03/19 04/04/19 04/05/19 23:59 23:59 23:59 Intake Total 3210.88 / 3210.88 300 / 300 Output Total 2200 / 2200 700 / 700 Balance 1010.88 / 1010.88 -400 / -400 General: Alert, Cooperative, No apparent distress Abdomen: Soft, Non-Distended, Distended - Appropriately, - - Incisions are clean dry and intact with skin glue. Vaginal packing was removed with small amount of sanguinous drainage on it. Whyte catheter was removed. Laboratory Results 04/04/19 09:50: Urine Test Negative 04/04/19 10:08: POC Glucose 88 04/04/19 14:05: POC Glucose 108 04/05/19 06:00: WBC 9.0, RBC 3.96 L, Hgb 11.5 L, Hct 34.2 L, MCV 86.4, MCH 29.0, MCHC 33.6, RDW Std Deviation 39.3, RDW Coeff of Nicolette 12.5, Plt Count 286, MPV 8.9 Current Medications Acetaminophen (Tylenol) 1,000 mg PO Q6 [facility] Last Admin: 04/05/19 06:10 Dose: 1,000 mg Documented by: Docusate Sodium (Colace) 100 mg PO BID [facility] Last Admin: 04/04/19 20:11 Dose: 100 mg Documented by: Enoxaparin Sodium (Lovenox) 40 mg SC DAILY [facility] Lactated Ringer's () 1,000 mls @ 70 mls/hr IV .[id number] [facility] Stop: 04/05/19 14:37 Last Admin: 04/04/19 21:56 Dose: 70 mls/hr Documented by: Influenza Virus Vaccine Quadrival (Flucelvax /Fluzone [id number]) 0.5 ml IM .ONCE ONE Stop: 04/05/19 10:01 Ketorolac Tromethamine (Toradol) 30 mg IV Q6 BENI Stop: 04/06/19 00:01 Last Admin: 04/05/19 06:10 Dose: 30 mg Documented by: Magnesium Oxide (Mag-Ox 400) 400 mg PO DAILY PRN PRN PRN Reason: Constipation Ondansetron HCl (Zofran Odt) 4 mg PO Q6H PRN PRN PRN Reason: NAUSEA Oxycodone HCl (Oxyir) 5 - 10 mg PO Q4H PRN PRN PRN Reason: Pain Score 4-10/10 Last Admin: 04/04/19 21:55 Dose: 5 mg Documented by: Sodium Chloride () 10 - 40 ml IV UD PRN PRN Reason: SALINE FLUSH Medical Necessity - Tobacco Use Smoking Status: Never smoker Tobacco Use: Non-smoker Assessment/Plan All Active Problems (Last Updated 10/15/18 @ 19:08 by Carolyn Berry) Paroxysmal A. fib status post ablation (Resolved) Pericarditis (Resolved) Postoperative day #1 status post laparoscopic-assisted vaginal hysterectomy with posterior repair and bilateral salpingectomy. Patient is doing well. Blood count is stable postoperatively. Discharge home if passes voiding trial. Patient has prescriptions for pain control at home. Discharge instructions reviewed. Her questions were answered to her satisfaction. Surgical findings reviewed.
--- NOTE | 2019-04-05 08:55 | PCM.DC.VHY ---
Discharge Diet: No Restrictions Discharge Activity: Return to Normal Activity, May Not Drive - while taking narcotic pain medications., May Shower May shower in (days): 0 May resume sexual activity in: 6-8 weeks Call your doctor if your incision/area has: Continuous Slow Oozing, Sudden Increased Bleeding, Increased Pain/ Swelling, Increased Redness, Foul Smelling Discharge Call your doctor if you observe: Fever of 101 or Higher, Inability to urinate, Inability to have a bowel movement, Using more than one pad per hour Cleanse incision/area with: Soap & Water - Your incisions have skin glue. It can get wet. Leave the skin glue on for 10 to 14 days., - - You may use ice packs to the perineal area as needed or soak in a small amount of warm water. Allergies/Adverse Reactions: Allergies No Known Allergies Allergy (Verified 04/04/19 09:57) Medications to take at Discharge metoprolol succinate ER 25 mg tablet,extended release 24 hr 25 mg PO DAILY 07/19/18 Orders to be completed after discharge: Type & Screen Time Frame: 03/28/19, Facility: [facility], Location: Laboratory 12 Lead EKG [[facility]] Time Frame: 03/28/19, Facility: [facility], Location: Cardiovascular Services Basic Metabolic Profile (BMP) Time Frame: 03/28/19, Facility: [facility], Location: Laboratory CBC-Complete Blood Cnt No Diff Time Frame: 03/28/19, Facility: [facility], Location: Laboratory Primary Care Physician: Rena Renner DO [Primary Care Provider] - Test Results: Test results from this visit will be discussed in further detail at your follow-up appointment, if applicable. Please Follow Up With: Talita Feliz MD - [phone] When: 1-2 in 6 weeks or as needed.
[2019-04-05 09:00] VITALS: BP 147/93; PULSE 92; RESP 18; TEMP 37.2; O2SAT 97
[2019-04-05] MEDS: Docusate Sodium 100 MG Capsule PO (09:44)
[2019-04-05] MEDS: Enoxaparin 40 MG/0.4 ML Syringe SC (09:44)
== END 2019-04-05 10:10 | disposition home or self-care (01) ==
LOC: SDC 09:43 → AC 09:43 → MS3 13:24
PROVIDERS: Family Provider Internal Medicine; PCP Internal Medicine; Referring Provider Obstetrics & Gynecology; Visit Provider Obstetrics & Gynecology
PROC: 0UT9FZZ Resection of Uterus, Via Natural or Artificial Opening With Percutaneous Endoscopic Assistance (ICD-10-PCS; CPT 57250; principal; 2019-04-04 10:15)
DX: N81.4 Uterovaginal prolapse, unspecified (principal); D25.1 Intramural leiomyoma of uterus; N72 Inflammatory disease of cervix uteri; I10 Essential (primary) hypertension; G43.809 Other migraine, not intractable, without status migrainosus; K21.9 Gastro-esophageal reflux disease without esophagitis; Z87.442 Personal history of urinary calculi; Z79.899 Other long term (current) drug therapy
CPT/HCPCS: 57250; 58552; 36415; 80048; 81025; 82962; 85027; 86850; 86900; 86901; 88307; 93005; 99251; J7120; 90686; G0463; J2405

== ENCOUNTER 2021-08-10 23:48 | Emergency (ER) | payer OTHER, BC, SELFPAY ==
[2021-08-10 23:50] VITALS: BP 152/91; PULSE 87; RESP 14; TEMP 35.5; O2SAT 97; BMI 31.0
--- NOTE | 2021-08-11 01:22 | EDS_ITS ---
HPI History of Present Illness Chief Complaint: Flank Pain Detail of Chief Complaint: Left flank pain Informant: patient and friend Onset/Context/Timing Onset: Days (Worse today and not controlled by the Toradol and Percocet she was prescribed from outside facility.) Timing: Continuous and Waxes and wanes Quality: Cramping colicky pain Location: Left flank Current Severity: Moderate Maximum Severity: Severe Worsened by: Nothing Relieved by: Nothing Associated Symptoms Associated Symptoms: Nausea Narrative Narrative: Patient is a 45-year-old woman who was seen at outside facility and diagnosed with obstructing left ureteral stone that was 5 mm in size. She denies fever, chills night sweats. She does report nausea without vomiting or diarrhea. She denies blood in her urine. Does have urgency. She has no other complaints. Prior similar symptoms: Yes Recent Illness/Hospitalization: Yes PFSH [facility] / [facility] Medical History History of pericarditis (07/2010) Hypoparathyroidism Migraine Paroxysmal atrial fibrillation Pericardial effusion (07/2010) Pyelonephritis Home Medications metoprolol succinate 25 mg tablet,extended release 24 hr 25 mg PO DAILY 07/19/18 [History Last Taken 04/04/19 07:00 25 MG] Allergy/AdvReac Type Severity Reaction Status Date / Time No Known Allergies Allergy Verified 08/10/21 23:50 Family History Father Negative for CAD Pacemaker Mother Hypertension Cardiomyopathy Brother Hypertension Surgical History History of knee surgery (07/2010) History of lithotripsy (~12/2014) History of ovarian cystectomy History of parathyroidectomy (~04/2015) History of radiofrequency ablation (RFA) procedure for cardiac arrhythmia (07/2010) History of ureter stent (~01/2015) Ureteral stone with hydronephrosis (Unknown) Social History (Updated 08/11/21 @ 01:[address] Sam Goins MD) household members: other Smoking Status: Never smoker alcohol intake: never caffeine: Yes Type: carbonated beverages, coffee Number of servings: 1 and tea ROS ROS ED Constitutional Constitutional ED: Denies chills, fever(s), subjective, sweats or weight loss Eyes Eyes: Denies blurry vision or change in vision ENT ENT ED: Denies rhinorrhea or sore throat Cardiovascular Cardiovascular: Denies chest pain or palpitations Respiratory/Chest Respiratory/Chest: Denies cough, dyspnea or dyspnea on exertion Gastrointestinal Gastrointestinal: Reports nausea and vomiting; Denies abdominal pain, constipation, diarrhea or melena Genitourinary Genitourinary ED: Reports other Details: Urgency ; Denies dysuria, hematuria or urinary frequency Musculoskeletal Musculoskeletal: Reports back pain; Denies arthralgias, myalgias or neck pain Integumentary Denies rash Neurologic Neurologic: Denies paresthesias or weakness Endocrine Endocrinology: Denies polydipsia, polyphagia or polyuria EXAM Physical Exam Const Vital Signs: 08/10/21 23:50 Temperature 96 F L Temperature Source Temporal Pulse Rate 87 Respiratory Rate 14 Blood Pressure 152/91 H Blood Pressure Mean 111 Pulse Ox 97 Oxygen Delivery Method Room Air Positive well nourished, well developed and obese General Appearance ED: well developed; Negative for cyanotic, diaphoretic, NAD or pallor Nutritional Appearance: obese HEENT Reports moist mucous membranes Negative for trauma or tenderness Eyes PERRL and EOMs intact bilaterally General Eye ED: Negative for pale conjunctiva or scleral icterus Neck no lymphadenopathy, supple and no JVD Resp normal respiratory effort and clear to auscultation bilaterally Effort and Inspection: Negative for pain with movement Cardio regular rate, regular rhythm, S1 normal heart sound, S2 normal heart sound and no murmurs GI normal to inspection, nondistended, normoactive bowel sounds, non-tender and non-distended Palpation: soft Back/Spine no CVA tenderness Thoracic Spine / Upper Back: Negative for thoracic spinal tenderness or paraspinal muscle tenderness Extremity normal to inspection Neuro oriented x3, CN's II-XII intact bilaterally and no sensory deficits noted Sensorium / Orientation: alert Motor Exam: strength 5/5 throughout Skin no rashes or lesions noted and no wounds General Skin Exam: Negative for jaundice or pallor MDM MDM MDM Narrative Medical decision making narrative: Patient presents with abrupt worsening left flank pain. She has a 5 mm stone. Will obtain urine to rule out infection. She was medicated with IV Toradol and morphine for the pain and Zofran for the nausea. Patient called the nurse station asking when she would receive Dilaudid. I was informed at that time the patient refused her morphine because it does not work . Patient states that Toradol has not helped at all. Patient was reassessed at 313. Patient states pain has decreased from an 8 to a 4. Plan is additional dose of Dilaudid. She has an appointment to see Dr. Iker posadas on . Person with patient states she cannot wait that long. She was informed that 1 day away and since her pain has decreased by 50% and she appears in no discomfort plan is additional dose of Dilaudid and discharged home Lab Data Attestation: I reviewed the patient's lab results. Lab results narrative: There is no evidence of infection. Labs: Laboratory Results - last 24 hr 08/11/21 00:40 Urine Color Yellow Urine Clarity Clear Urine pH 7.0 Ur Specific Norman 1.015 Urine Protein Negative Urine Glucose (UA) Normal Urine Ketones Negative Urine Occult Blood 10 H Urine Nitrite Negative Urine Bilirubin Negative Urine Urobilinogen Normal Ur Leukocyte Esterase Negative Urine RBC 0-5 SEEN Urine WBC 0 SEEN Ur Squamous Epith Cells 0 SEEN Other Crystals COMMENT Urine Bacteria 0 SEEN Urine Mucus 0 SEEN Discharge Plan Triage Chief Complaint: Flank Pain ED Provider: Sam Goins Dx/Rx/DC Orders Clinical Impression: Hydronephrosis with urinary obstruction due to ureteral calculus Instructions: ED Kidney Stone w/ Colic Prescriptions: No Action metoprolol succinate 25 mg tablet extended release 24 hr 25 mg PO DAILY RF: 0 Primary Care Provider: Rena Renner Referrals: Mark Abreu MD [STAFF PHYSICIAN] - Keep Vikash appointment Rena Renner DO [Primary Care Provider] - Disposition Disposition: Home, Self Care
[2021-08-11] MEDS: Ketorolac 15 MG/ML Vial IV (01:38)
[2021-08-11] MEDS: Ondansetron 4 MG/2 ML Vial IV (01:38)
[2021-08-11] MEDS: 0.9% Normal Saline 1,000 ML 250 ML IV (01:39)
[2021-08-11 02:10] LABS: Bacteria 0 SEEN /hpf (None Seen); Color, Urine Yellow (Yellow); Glucose, Dipstick Normal (Normal); Ketone-Dipstick Negative (Negative); Leukocyte Esterase-Dipstick Negative /ul (Negative); Mucous, Urine 0 SEEN /hpf (<or=2+); Nitrite-Dipstick Negative (Negative); Occult Blood-Urine 10 /ul (Negative); Protein-Dipstick Negative (Negative); Specific Gravity, Urine 1.015 (1.002-1.030); Squamous Epithelial Cells - UA 0 SEEN /hpf (5-10); Urine Bilirubin Dipstick Negative (Negative); Urine Clarity Clear (Clear); Urine Urobilinogen Normal (Normal); White Blood Cells 0 SEEN /hpf (0-5)
--- NOTE | 2021-08-11 02:10 | ED.RN ---
alin declined morphine and not better after the toradol. stsates morphine does not work for her and wants dilaudid
[2021-08-11] MEDS: HYDROmorphone 0.5 MG/0.5 ML SYRINGE IV ×2 (02:18→03:25)
[2021-08-11 02:21] LABS: Red Blood Cells-Urine 0-5 SEEN /hpf (0-5)
--- NOTE | 2021-08-11 03:00 | ED.RN ---
aware patient still in pain and wants more pain med. She is aware doctor is doing rounds and will be back around to re-evaluate.
[2021-08-11 03:19] VITALS: BP 132/74; PULSE 98; RESP 15; O2SAT 99
== END 2021-08-11 03:33 | disposition home or self-care (01) ==
PROVIDERS: Emergency Provider Emergency Medicine; PCP Internal Medicine; Visit Provider Emergency Medicine
DX: N13.2 Hydronephrosis with renal and ureteral calculous obstruction (principal); I48.0 Paroxysmal atrial fibrillation; Z79.899 Other long term (current) drug therapy; E66.9 Obesity, unspecified; Z68.31 Body mass index [BMI] 31.0-31.9, adult
CPT/HCPCS: 81001; 96361; 96374; 96375; 96376; 99283; A4216; J2405

== ENCOUNTER → 2021-08-14 | Outpatient (CLI) | payer OTHER, BC, SELFPAY ==
[2021-08-14 10:42] LABS: Hematocrit 39.2 % (37-47); Hemoglobin 13.3 g/dL (12.0-15.0); Mean Corp Hgb Conc 33.9 g/dL (32-36); Mean Corpuscular Hgb 29.2 pg (27.0-32.0); Mean Corpuscular Volume 86.2 fL (81-99); Mean Platelet Vol. 8.6 fl (6.2-12.0); Platelet Count 322 K/mm3 (150-450); RBC Distribution Width CV 12.2 % (11.6-14.6); RBC Distribution Width SD 38.4 fl (35.1-43.9); Red Blood Count 4.55 M/mm3 (4.2-5.4); White Blood Count 5.6 K/mm3 (4.4-11.0)
[2021-08-14 10:56] LABS: Anion Gap 4 (5-15); BUN 13 mg/dL (7-18); BUN/Creat Ratio 14.8 RATIO (10-20); Calcium,Total 9.6 mg/dL (8.5-10.1); Chloride 107 mmol/L (98-107); Creatinine, Serum 0.88 mg/dL (0.55-1.02); EST Glomerular Filtration Rate 73 mL/min (>60); Est Glom Filt Rate - Afr Amer 89 mL/min (>60); Glucose 88 mg/dL (74-106); Sodium Level 137 mmol/L (136-145)
== END | disposition home or self-care (01) ==
LOC: LAB 10:20
PROVIDERS: PCP Internal Medicine; Referring Provider Urology; Visit Provider Urology
DX: Z01.812 Encounter for preprocedural laboratory examination (principal)
CPT/HCPCS: 36415; 80048; 85027

== ENCOUNTER → 2021-08-16 | Outpatient (CLI) | payer OTHER, BC, SELFPAY ==
--- NOTE | 2021-08-16 14:55 | RAD_ITS ---
STUDY: X-RAY - ABDOMEN/PELVIS REASON FOR EXAM: Female, 45 years old. CALCULUS OF URETER TECHNIQUE: Single AP view of the abdomen / pelvis. COMPARISON: None. FINDINGS: There is an unremarkable bowel gas pattern. Multiple small calcific opacities overlying both kidneys consistent with bilateral renal stones. No definite ureteral stone. Normal soft tissue structures. Normal visualized osseous structures. RAD/Abdomen Single View IMPRESSION: Bilateral renal stones. No definite ureteral stone. Electronically Signed: Enzo Mcleod MD at 8:42 EDT ,
== END | disposition home or self-care (01) ==
LOC: RAD 14:52
PROVIDERS: PCP Internal Medicine; Referring Provider Urology; Visit Provider Urology
DX: N20.1 Calculus of ureter (principal)
CPT/HCPCS: 74018

== ENCOUNTER → 2021-10-09 | Outpatient (CLI) | payer OTHER, BC, SELFPAY ==
--- NOTE | 2021-10-09 08:47 | CT_ITS ---
STUDY: CT ABDOMEN AND PELVIS WITHOUT CONTRAST REASON FOR EXAM: Female, 45 years old. CALCULUS OF URETER RADIATION DOSAGE (If Supplied By Facility): CTDIvol = ( 10.56 ) mGy, DLP = ( 527.73 ) mGycm TECHNIQUE: Transaxial images were obtained from the dome of the diaphragm to the symphysis pubis without oral contrast, and without intravenous contrast. Sagittal and coronal images were reconstructed. Individualized dose optimization techniques were used for this CT. COMPARISON: 03/01/2018. FINDINGS: The visualized lung bases are unremarkable. The visualized portions of the heart are within normal limits. 5 mm cyst in the right lobe of the liver. Normal gallbladder and extrahepatic biliary system. Normal spleen. Normal pancreas. Normal bilateral adrenal glands. Faintly visualized low-density lesion/cyst. 1.8 cm cyst in the lower pole of the left kidney. Bilateral nonobstructing stones are again seen, the largest measures about 4 mm. No evidence of hydronephrosis. No evidence of ureteral stones. Normal visualized stomach. Normal small intestine. Mild diverticulosis of the sigmoid colon. No evidence of acute diverticulitis. The appendix is visualized and appears normal. Normal abdominal aorta. Normal inferior vena cava. Normal retroperitoneum. The bladder is not well-distended. There is absence of the uterus consistent with a prior hysterectomy. There is a small umbilical hernia containing fat. Normal osseous structures. CT/Abdomen/Pelvis without Cont IMPRESSION: 1. Bilateral nonobstructing renal stones essentially unchanged prior examination. 2. No evidence of ureteral stone or hydronephrosis. 3. The visualized bilateral renal cysts. 4. No focal acute inflammatory process. Electronically Signed: Juni Minor MD at 10:55 EDT ,
== END | disposition home or self-care (01) ==
LOC: CT 08:45
PROVIDERS: PCP Internal Medicine; Referring Provider Urology; Visit Provider Urology
DX: N20.0 Calculus of kidney (principal)
CPT/HCPCS: 74176

== ENCOUNTER → 2022-01-03 | Outpatient (CLI) | payer OTHER, SELFPAY ==
[2022-01-03 08:30] LABS: Bacteria 0 SEEN /hpf (None Seen); Mucous, Urine 0 SEEN /hpf (<or=2+); Red Blood Cells-Urine 0 SEEN /hpf (0-5); White Blood Cells 0 SEEN /hpf (0-5)
[2022-01-03 08:45] LABS: Color, Urine Yellow (Yellow); Glucose, Dipstick Normal (Normal); Ketone-Dipstick Negative (Negative); Leukocyte Esterase-Dipstick Negative /ul (Negative); Nitrite-Dipstick Negative (Negative); Occult Blood-Urine Negative /ul (Negative); Protein-Dipstick 15 mg/dl (Negative); Urine Bilirubin Dipstick Negative (Negative); Urine Clarity Sl. Cloudy (Clear); Urine Urobilinogen Normal (Normal)
[2022-01-03 08:46] LABS: Absolute Lymphocyte Count 1.25 X10^3/uL (0.83-4.51); Absolute Neutrophil Count 3.4 X10^3/uL (2.0-7.7); Basophil# 0.03 X10^3/uL; Basophil% 0.6 % (0-1); Eosinophil# 0.16 X10^3/uL; Eosinophils% 3.1 % (0-5); Hematocrit 40.4 % (37-47); Hemoglobin 13.9 g/dL (12.0-15.0); Lymphocyte # 1.25 X10^3/ul (0.83-4.51); Lymphocyte % 23.9 % (19-41); Mean Corp Hgb Conc 34.4 g/dL (32-36); Mean Corpuscular Hgb 30.3 pg (27.0-32.0); Mean Platelet Vol. 8.5 fl (6.2-12.0); Monocyte% 7.7 % (0-10); NRBC Flagged by Analyzer 0 % (0-5); Neutrophil # 3.37 X10^3/uL (2.7-7.7); Neutrophil % 64.5 % (47-70); Platelet Count 320 K/mm3 (150-450); RBC Distribution Width CV 12.4 % (11.6-14.6); RBC Distribution Width SD 40.3 fl (35.1-43.9); Red Blood Count 4.59 M/mm3 (4.2-5.4); White Blood Count 5.2 K/mm3 (4.4-11.0)
[2022-01-03 08:51] LABS: Squamous Epithelial Cells - UA 0-5 SEEN /hpf (5-10)
[2022-01-03 09:07] LABS: Microalbumin,Random Urine 11.5 mg/L (NO RANGE EST.); Microalbumin:Creatinine Ratio 6.8 mg/g CRE (<30 mg/g CRE)
[2022-01-03 09:48] LABS: ALB/GLOB Ratio 0.8 RATIO (0.9-2.4); AST(SGOT) 13 U/L (15-37); Alanine Aminotransfer ALT/SGPT 23 U/L (13-56); Albumin, Serum 3.4 g/dL (3.2-5.0); Alkaline Phosphatase 51 U/L (45-117); Anion Gap 6 (5-15); BUN 11 mg/dL (7-18); Calcium,Total 9.3 mg/dL (8.5-10.1); Chloride 107 mmol/L (98-107); Cholesterol 202 mg/dL (200); Creatinine, Serum 0.79 mg/dL (0.55-1.02); EST Glomerular Filtration Rate 83 mL/min (>60); Est Glom Filt Rate - Afr Amer 100 mL/min (>60); Glucose 95 mg/dL (74-106); High Density Lipoprotein 45 mg/dL; Potassium 3.9 mmol/L (3.5-5.1); Protein, Total 7.4 g/dL (6.4-8.2); Sodium Level 138 mmol/L (136-145); Thyroid Stim Hormone (TSH) 0.89 uIU/mL (0.358-3.74); Triglycerides 236 mg/dL; Very Low Density Lipoprotein 47 mg/dL (5-40)
== END | disposition home or self-care (01) ==
LOC: LAB 08:24
PROVIDERS: PCP Internal Medicine; Visit Provider Internal Medicine
DX: I10 Essential (primary) hypertension (principal); E78.2 Mixed hyperlipidemia
CPT/HCPCS: 36415; 80053; 80061; 81001; 82043; 82570; 84443; 85025